=== PATIENT | female | born 1940 | race Caucasian/White ===

== ENCOUNTER 2016-07-17 14:14 | Emergency (ER) | payer MEDICARE, OTHER ==
[2016-07-17 14:31] VITALS: BP 141/68; PULSE 62; RESP 20; TEMP 98.3
--- NOTE | 2016-07-17 15:18 | ED ---
General Adult HPI - General Chief complaint: Extremity Problem,Nontraumatic Stated complaint: Right Arm Pain Time Seen by Provider: 07/17/16 14:45 Source: patient, RN notes reviewed Mode of arrival: ambulatory Limitations: no limitations - History of Present Illness Initial comments: This is a 76-year-old female presents with right elbow pain 3 months. Patient states that the pain has been getting worse as of late. Patient denies any repetitive motion with the right arm but states she uses this arm to read. Patient denies any numbness/tingling or weakness to the right upper extremity. Patient states there is some mild swelling to the right elbow. Patient states the pain is worse with making a fist. Patient denies any recent fever, chills, shortness breath, chest pain, abdominal pain, nausea/vomiting/diarrhea, back pain, hematuria, headache, or visual changes, or any other complaints. - Related Data Allergies Allergy/AdvReac Type Severity Reaction Status Date / Time Penicillins Allergy Unknown Verified 07/17/16 14:31 Review of Systems ROS Statement: Those systems with pertinent positive or pertinent negative responses have been documented in the HPI. ROS Other: All systems not noted in ROS Statement are negative. Past Medical History Past Medical History: Coronary Artery Disease (CAD), Chest Pain / Angina, Diabetes Mellitus, Myocardial Infarction ([place]), Osteoarthritis (OA) History of Any Multi-Drug Resistant Organisms: None Reported Past Surgical History: Cholecystectomy, Heart Catheterization With Stent, Hysterectomy Additional Past Surgical History / Comment(s): carpal tunnel Past Psychological History: No Psychological Hx Reported Smoking Status: Never smoker Past Alcohol Use History: None Reported Past Drug Use History: None Reported General Exam - General Exam Comments Initial Comments: General: The patient is awake and alert, in no distress, and does not appear acutely ill. Neck: The neck is supple, there is no tenderness or JVD. Cardiovascular: There is a regular rate and rhythm. No murmur, rub or gallop is appreciated. Respiratory: Lungs are clear to auscultation, respirations are non-labored, breath sounds are equal. No wheezes, stridor, rales, or rhonchi. Musculoskeletal: There is tenderness to palpation over the lateral aspect of the right elbow and tenderness is exacerbated with resisted flexion of the right wrist and with resisted pronation. There is some mild swelling over the lateral aspect of the right elbow. No tenderness to palpation over the medial aspect of the right elbow, the right forearm, the right shoulder or the right wrist/hand. Full range of motion, strength 5/5 and Sensation intact. Radial pulses bilaterally. Capillary refill is normal at less than 2 seconds. Neurological: A&O x 3. CN II-XII intact, There are no obvious motor or sensory deficits. Coordination appears grossly intact. Speech is normal. Skin: Skin is warm and dry and no rashes or lesions are noted. Psychiatric: Normal mood and affect. Limitations: no limitations Course Vital Signs 07/17/16 14:28 Temperature 98.3 F Pulse Rate 62 Respiratory 20 Rate Blood Pressure 141/68 O2 Sat by Pulse 97 Oximetry Medical Decision Making - Medical Decision Making This is a 76-year-old female presents with right elbow pain 3 months. On physical exam There is tenderness to palpation over the lateral aspect of the right elbow and tenderness is exacerbated with resisted flexion of the right wrist and with resisted pronation. There is some mild swelling over the lateral aspect of the right elbow. No tenderness to palpation over the medial aspect of the right elbow, the right forearm, the right shoulder or the right wrist/hand. Full range of motion, strength 5/5 and Sensation intact. Radial pulses bilaterally. Capillary refill is normal at less than 2 seconds. An x-ray of the right elbow was done and reviewed showing:Negative right elbow exam. There is calcification lateral to the lateral humeral condyle consistent with old injury. Reported by Dr. Park. Aldo denies any recent or old injury to the elbow that she can recall. I discussed with patient that she most likely has lateral epicondylitis. I discussed tennis elbow braces. I discussed rest, ice, elevate and use of Trace wrap for compression. I discussed [id number] Tylenol and or Motrin as needed for any pain. I discussed return parameters. Discussed that patient should follow up with PCP in one to 2 days or return to the [facility] for any worsening symptoms or for any further concerns. Patient was receptive to this plan and patient will be discharged home. Disposition Clinical Impression: Lateral epicondylitis of right elbow Disposition: HOME SELF-CARE Condition: Good Instructions: Tennis Elbow (ED) Additional Instructions: Please rest, ice, elevate and use a tennis elbow brace for support. Please use [id number] Tylenol or Motrin as a for any pain. Please follow-up with family doctor in the next 2 days of symptoms have not improved. Please return to emergency room if the symptoms increase or worsen or for any other concerns. Referrals: Kasia Law MD [Primary Care Provider] - 1-2 days Time of Disposition: 15:45
--- NOTE | 2016-07-17 15:28 | XR ---
EXAMINATION TYPE: XR elbow complete RT DATE OF EXAM: 07/17/2016 3:22 PM COMPARISON: NONE HISTORY: Elbow pain TECHNIQUE: 3 views FINDINGS: I see no fracture nor dislocation. Joint spaces are normal. There is no sign of elbow joint effusion. IMPRESSION: Negative right elbow exam. There is calcification lateral to the lateral humeral condyle consistent with old injury.
== END 2016-07-17 16:08 | disposition home or self-care (01) ==
LOC: EC 14:14
DX: M77.11 Lateral epicondylitis, right elbow (principal); Z88.0 Allergy status to penicillin; Z95.5 Presence of coronary angioplasty implant and graft
CPT/HCPCS: 99283

== ENCOUNTER → 2017-08-02 | Outpatient (CLI) | payer MEDICARE, OTHER ==
--- NOTE | 2017-08-03 07:35 | BD ---
EXAMINATION TYPE: MG DEXA axial skeleton. DATE OF EXAM: 08/02/2017 COMPARISON: 10/25/2013 CLINICAL HISTORY: Postmenopausal female. Osteoporosis screening. Height: 57.5 IN Weight: 195 LBS FRAX RISK QUESTIONS: Alcohol (3 or more units per day): NO Family History (Parent hip fracture): NO Glucocorticoids (More than 3mos): NO (Ex: prednisone, prednisolone, methylprednisolone, dexamethasone, and hydrocortisone). History of Fracture in Adulthood: NO Secondary Osteoporosis: 1. Type 1 Diabetes: NO 2. Hyperthyroidism: NO 3. Menopause before 45: YES AGE 45 4. Malnutrition: NO 5. Chronic liver disease: NO Rheumatoid Arthritis: NO Current Tobacco Use: NO RISK FACTORS HISTORY OF: Active: MODERATE Diet low in dairy products/other sources of calcium: YES Postmenopausal woman: AGE 45 Take estrogen and/or progesterone medications: NOT NOW How long: TOOK HORMONES AGE 44-65 MEDICATIONS: Additional Medications: VIT D, CRESTOR, VESICARE, GLIPIZIDE, PEPCID TENORMIN,ZYRTEC EXAM MEASUREMENTS: Bone mineral densitometry was performed using the [employer] System. Bone mineral density as measured about the Lumbar spine is: ----- L1-L4(G/cm2): 1.421 T Score Values are as follows: ----- L2: 2.3 ----- L3: 2.9 ----- L4: 1.7 ----- L1-L4: 2.0 Bone mineral density has: Decreased -3.7% since study of: 10/25/2013 Bone mineral density about the R hip (g/cm2): 0.982 Bone mineral density about the L hip (g/cm2): 0.995 T Score values are as follows: -----R Neck: -0.4 -----L Neck: -0.3 -----R Total: 0.8 -----L Total: 1.0 Bone mineral density has: Decreased -2.2% since study of: 10/25/2013 IMPRESSION: Normal (Values between +1 and -1 indicate normal bone mass). Consider repeating this study in 5 year s or sooner if there is some new clinical indication. NOTE: T-SCORE=SD OF THE YOUNG ADULT MEAN.
--- NOTE | 2017-08-03 11:50 | MM ---
Reason for exam: screening (asymptomatic). Last mammogram was performed 3 years and 9 months ago. History: Patient is postmenopausal. Benign left mammotome panel of the left breast, September 12, 2007. Took estrogen for 22 years beginning at age 45. Physical Findings: A clinical breast exam by your physician is recommended on an annual basis and results should be correlated with mammographic findings. MG 3D Screening Mammo W/Cad Bilateral CC and MLO view(s) were taken. Prior study comparison: October 25, 2013, bilateral MG screening mammo w CAD. July 07, 2012, bilateral digital screening mammo w/CAD. The breast tissue is heterogeneously dense. This may lower the sensitivity of mammography. Focal asymmetry outer left CC view 3.5cm from nipple. This finding is changed when compared with previous exams. ASSESSMENT: Incomplete: need additional imaging evaluation, BI-RAD 0 RECOMMENDATION: Special view mammogram of the left breast. If lesion persists on supplemental views, image directed ultrasound is recommended. [facility] will attempt to contact patient to return for supplemental views and ultrasound if indicated.
== END | disposition home or self-care (01) ==
LOC: RADMAMWWP 13:52
PROVIDERS: ATTEND Family Medicine
DX: Z12.31 Encounter for screening mammogram for malignant neoplasm of breast (principal); N95.9 Unspecified menopausal and perimenopausal disorder
CPT/HCPCS: 77063; 77067; 77080

== ENCOUNTER 2018-01-16 07:57 | Emergency (ER) | payer MEDICARE, OTHER ==
--- NOTE | 2018-01-16 08:48 | ED ---
General Adult HPI - General Chief complaint: Eye Problems Stated complaint: RT EYE PROBLEM Time Seen by Provider: 01/16/18 08:09 Source: patient, family, RN notes reviewed Mode of arrival: ambulatory Limitations: no limitations - History of Present Illness Initial comments: Patient's a 77-year-old female with significant past medical history for macular pucker, presenting to the emergency room today with a chief complaint of decreased visual acuity out of the right eye. Patient does admit that last approximately 9:00 she noticed that centrally seemed that her vision was a little different. She states it felt like something was in her eye. She states she would then woke up around 4 AM. She states at that time she's noticed that her vision was much different. She states the entire visual field was like a piece of "wax paper" was over it. Vision does admit that there is some discomfort to the eye. She denies any other complaints or symptoms. - Related Data Allergies Allergy/AdvReac Type Severity Reaction Status Date / Time Penicillins Allergy Unknown Verified 01/16/18 08:35 Review of Systems ROS Statement: Those systems with pertinent positive or pertinent negative responses have been documented in the HPI. ROS Other: All systems not noted in ROS Statement are negative. Past Medical History Past Medical History: Coronary Artery Disease (CAD), Chest Pain / Angina, Diabetes Mellitus, Myocardial Infarction ([place]), Osteoarthritis ([place]) History of Any Multi-Drug Resistant Organisms: None Reported Past Surgical History: Cholecystectomy, Heart Catheterization With Stent, Hysterectomy, Orthopedic Surgery Additional Past Surgical History / Comment(s): carpal tunnel shoulder surg Past Psychological History: No Psychological Hx Reported Smoking Status: Never smoker Past Alcohol Use History: None Reported Past Drug Use History: None Reported General Exam - General Exam Comments Initial Comments: General: The patient is awake and alert, in no distress, and does not appear acutely ill. Eye: Extraocular eye movements are intact. No nystagmus. Patient's left pupil is larger than her right. (States this is been that way since after cataract surgery on the left) patient's visual acuity on the right is dramatically effective as she is unable to distinguish fingers less than an inch from her eye. Entire visual field. Pressure 14 on the right. Ears, nose, mouth and throat: There are moist mucous membranes and no oral lesions. Neck: The neck is supple Musculoskeletal: Normal ROM, no tenderness. Strength 5/5. Sensation intact. Pulses equal bilaterally 2+. Neurological: A&O x 3. CN II-XII intact, There are no obvious motor or sensory deficits. Coordination appears grossly intact. Speech is normal. Skin: Skin is warm and dry and no rashes or lesions are noted. Psychiatric: Cooperative, appropriate mood & affect, normal judgment. Limitations: no limitations Course Vital Signs 01/16/18 08:03 Temperature 97.8 F Pulse Rate 56 L Respiratory 16 Rate Blood Pressure 166/72 O2 Sat by Pulse 98 Oximetry Medical Decision Making - Medical Decision Making Case was discussed with attending physician Dr. Padgett who did discuss the case with patient's cover stitch machine operator Dr. Michaels who recommends that the patient come directly to his office at this time. Patient does have somebody that will will drive her there. She will be discharged advised to proceed directly to his office. Disposition Clinical Impression: Vision loss of right eye Disposition: HOME SELF-CARE Condition: Stable Additional Instructions: Please proceed directly to Dr. Michaels's office for further evaluation. Is patient prescribed a controlled substance at d/c from ED?: No Referrals: Kasia Law MD [Primary Care Provider] - 1-2 days Time of Disposition: 08:48
[2018-01-16 09:06] VITALS: BP 163/75; PULSE 59; RESP 18; TEMP 97.6
== END 2018-01-16 08:45 | disposition home or self-care (01) ==
LOC: EC 07:57
DX: H54.61 Unqualified visual loss, right eye, normal vision left eye (principal); Z88.0 Allergy status to penicillin; Z98.42 Cataract extraction status, left eye
CPT/HCPCS: 99283

== ENCOUNTER → 2019-03-13 | Outpatient (CLI) | payer MEDICARE, OTHER ==
--- NOTE | 2019-03-15 14:58 | MM ---
Reason for exam: screening (asymptomatic). Last mammogram was performed 1 year and 7 months ago. History: Patient is postmenopausal. Benign left mammotome panel of the left breast, September 12, 2007. Took estrogen for 22 years beginning at age 45. Physical Findings: A clinical breast exam by your physician is recommended on an annual basis and results should be correlated with mammographic findings. MG 3D Screening Mammo W/Cad Bilateral CC and MLO view(s) were taken. Prior study comparison: August 02, 2017, bilateral MG 3d screening mammo w/cad. October 25, 2013, bilateral MG screening mammo w CAD. The breast tissue is heterogeneously dense. This may lower the sensitivity of mammography. Benign appearing bilateral calcifications. There is no discrete abnormality. No significant changes when compared with prior studies. ASSESSMENT: Benign, BI-RAD 2 RECOMMENDATION: Routine screening mammogram of both breasts in 1 year.
== END | disposition home or self-care (01) ==
LOC: RADMAMWWP 09:57
PROVIDERS: ATTEND Family Medicine
DX: Z12.31 Encounter for screening mammogram for malignant neoplasm of breast (principal)
CPT/HCPCS: 77063; 77067

== ENCOUNTER 2019-05-04 20:48 | Inpatient (IN) | payer MEDICARE, OTHER ==
[2019-05-04] MEDS ORDERED: ACETAMINOPHEN TAB 325 MG TAB PO STA (21:23)
[2019-05-04 21:43] LABS: Basophils % (A) 0 %; Eosinophils # (A) 0.1 k/uL (0-0.7); Eosinophils % (A) 1 %; HCT 41.1 % (34.0-46.0); Lymphocytes # (A) 0.3 k/uL (1.0-4.8); Lymphocytes % (A) 4 %; MCH 27.9 pg (25.0-35.0); Mean Platelet Volume 7.5; Monocytes # (A) 0.3 k/uL (0-1.0); Monocytes % (A) 3 %; Neutrophils # (A) 7.2 k/uL (1.3-7.7); Neutrophils % (A) 91 %; Platelet Count 161 k/uL (150-450); RBC 5.02 m/uL (3.80-5.40); RDW 14.9 % (11.5-15.5); WBC 7.9 k/uL (3.8-10.6)
--- NOTE | 2019-05-04 21:51 | ED ---
Fever HPI - General Chief Complaint: Fever Stated Complaint: Fever, Weakness Time Seen by Provider: 05/04/19 20:54 Source: patient Mode of arrival: ambulatory Limitations: no limitations - History of Present Illness Initial Comments: This patient is 79-year-old woman who presents to be evaluated for chills. The patient that she was in her usual state of health until about 3 PM today when she noted that she was developing chills. She states that she spent the afternoon every herself with blankets and then as the symptoms did not seem to getting better, she was persuaded by her daughters to be checked here. The patient denies symptoms of infection. She did not note fever at home. She is not having sore throat, congestion, sinus pain. No cough, dyspnea or chest pain. She has not noted palpitations. No abdominal pain, vomiting or diarrhea. She has not noted any frequency or dysuria. No rash. MD Complaint: other (Chills) -: hour(s) (6) Temperature Source: subjective Context: recent antibiotic use Associated Symptoms: chills Treatments Prior to Arrival: none - Related Data Home Medications Medication Instructions Recorded Confirmed Amlodipine/Valsartan/Hcthiazid 1 tab PO DAILY 01/16/18 05/04/19 [[id number]-[id number]-Tcfl 10-160-25 mg] Atenolol [Tenormin] 50 mg PO DAILY 01/16/18 05/04/19 Cetirizine HCl [Zyrtec] 10 mg PO DAILY 01/16/18 05/04/19 Cholecalciferol [Vitamin D3] 5,000 unit PO DAILY 01/16/18 05/04/19 Famotidine [Pepcid] 20 mg PO DAILY 01/16/18 05/04/19 glipiZIDE XL [Glucotrol Xl] 5 mg PO DAILY 01/16/18 05/04/19 Aspirin [Adult Low Dose Aspirin [facility]] 81 mg PO HS 05/04/19 05/04/19 Toviaz (Unknown Dose) 1 tab PO DAILY 05/04/19 05/04/19 Allergies Allergy/AdvReac Type Severity Reaction Status Date / Time Penicillins Allergy Unknown Verified 05/04/19 23:02 Review of Systems ROS Statement: Those systems with pertinent positive or pertinent negative responses have been documented in the HPI. ROS Other: All systems not noted in ROS Statement are negative. Constitutional: Reports: chills. Denies: fever Respiratory: Denies: cough, dyspnea Cardiovascular: Denies: chest pain, palpitations, edema, syncope Gastrointestinal: Denies: abdominal pain, vomiting, diarrhea Genitourinary: Denies: dysuria, frequency, hematuria Musculoskeletal: Denies: back pain Skin: Denies: rash Neurological: Denies: headache, weakness Past Medical History Past Medical History: Coronary Artery Disease (CAD), Chest Pain / Angina, Diabetes Mellitus, Myocardial Infarction ([place]), Osteoarthritis (OA) History of Any Multi-Drug Resistant Organisms: None Reported Past Surgical History: Cholecystectomy, Heart Catheterization With Stent, Hysterectomy, Orthopedic Surgery Additional Past Surgical History / Comment(s): carpal tunnel shoulder surg Past Psychological History: No Psychological Hx Reported Smoking Status: Never smoker Past Alcohol Use History: None Reported Past Drug Use History: None Reported - Past Family History Father Additional Family Medical History / Comment(s): of cancer of lungs from smoking Mother Family Medical History: Diabetes Mellitus Additional Family Medical History / Comment(s): of complications of diabetes General Exam Limitations: no limitations General appearance: alert, in no apparent distress Head exam: Present: atraumatic, normocephalic Eye exam: Present: normal appearance. Absent: scleral icterus, conjunctival injection ENT exam: Present: normal oropharynx, mucous membranes moist Neck exam: Present: normal inspection, full ROM. Absent: meningismus Respiratory exam: Present: normal lung sounds bilaterally. Absent: respiratory distress, wheezes, rales, rhonchi, stridor Cardiovascular Exam: Present: regular rate, normal rhythm, normal heart sounds. Absent: systolic murmur, diastolic murmur, rubs, gallop GI/Abdominal exam: Present: soft, hernia. Absent: distended, tenderness, guarding, rebound, rigid Extremities exam: Present: normal inspection, normal capillary refill. Absent: pedal edema, calf tenderness Back exam: Present: normal inspection. Absent: CVA tenderness (R), CVA tenderness (L) Neurological exam: Present: alert Skin exam: Present: warm, dry, intact, normal color. Absent: rash Course Vital Signs 05/04/19 05/04/19 05/04/19 21:04 21:07 21:30 Temperature 100.9 F H Pulse Rate 87 86 Respiratory 20 19 Rate Blood Pressure 120/51 120/51 O2 Sat by Pulse 97 96 95 Oximetry 05/04/19 05/04/19 05/04/19 22:00 22:30 23:47 Temperature 99.2 F Pulse Rate 84 85 78 Respiratory 23 22 20 Rate Blood Pressure 113/51 111/52 100/78 O2 Sat by Pulse 99 94 L 95 Oximetry Medical Decision Making - Lab Data Result diagrams: 05/05/19 02:34 05/05/19 02:34 Lab Results 05/04/19 05/04/19 05/04/19 Range/Units 21:03 21:03 21:03 WBC 7.9 (3.8-10.6) k/uL RBC 5.02 (3.80-5.40) m/uL Hgb 14.0 (11.4-16.0) gm/dL Hct 41.1 (34.0-46.0) % MCV 82.0 (80.0-100.0) fL MCH 27.9 (25.0-35.0) pg MCHC 34.0 (31.0-37.0) g/dL RDW 14.9 (11.5-15.5) % Plt Count 161 (150-450) k/uL Neutrophils % 91 % Lymphocytes % 4 % Monocytes % 3 % Eosinophils % 1 % Basophils % 0 % Neutrophils # 7.2 (1.3-7.7) k/uL Lymphocytes # 0.3 L (1.0-4.8) k/uL Monocytes # 0.3 (0-1.0) k/uL Eosinophils # 0.1 (0-0.7) k/uL Basophils # 0.0 (0-0.2) k/uL Sodium 140 (137-145) mmol/L Potassium 4.2 (3.5-5.1) mmol/L Chloride 106 (98-107) mmol/L Carbon Dioxide 21 L (22-30) mmol/L Anion Gap 13 mmol/L BUN 47 H (7-17) mg/dL Creatinine 2.11 H (0.52-1.04) mg/dL Est GFR (CKD-EPI)AfAm 25 (>60 ml/min/1.73 sqM) Est GFR (CKD-EPI)NonAf 22 (>60 ml/min/1.73 sqM) Glucose 98 (74-99) mg/dL Plasma Lactic Acid Ravi 2.6 H* (0.7-2.0) mmol/L Calcium 9.8 (8.4-10.2) mg/dL Total Bilirubin 0.7 (0.2-1.3) mg/dL AST 93 H (14-36) U/L ALT 82 H (9-52) U/L Alkaline Phosphatase 98 (38-126) U/L Total Protein 7.6 (6.3-8.2) g/dL Albumin 4.2 (3.5-5.0) g/dL Urine Color Urine Appearance (Clear) Urine pH (5.0-8.0) Ur Specific [place] (1.001-1.035) Urine Protein (Negative) Urine Glucose (UA) (Negative) Urine Ketones (Negative) Urine Blood (Negative) Urine Nitrite (Negative) Urine Bilirubin (Negative) Urine Urobilinogen (<2.0) mg/dL Ur Leukocyte Esterase (Negative) Urine RBC (0-5) /hpf Urine WBC (0-5) /hpf Ur Squamous Epith Cells (0-4) /hpf Urine Bacteria (None) /hpf 05/04/19 Range/Units 21:03 WBC (3.8-10.6) k/uL RBC (3.80-5.40) m/uL Hgb (11.4-16.0) gm/dL Hct (34.0-46.0) % MCV (80.0-100.0) fL MCH (25.0-35.0) pg MCHC (31.0-37.0) g/dL RDW (11.5-15.5) % Plt Count (150-450) k/uL Neutrophils % % Lymphocytes % % Monocytes % % Eosinophils % % Basophils % % Neutrophils # (1.3-7.7) k/uL Lymphocytes # (1.0-4.8) k/uL Monocytes # (0-1.0) k/uL Eosinophils # (0-0.7) k/uL Basophils # (0-0.2) k/uL Sodium (137-145) mmol/L Potassium (3.5-5.1) mmol/L Chloride (98-107) mmol/L Carbon Dioxide (22-30) mmol/L Anion Gap mmol/L BUN (7-17) mg/dL Creatinine (0.52-1.04) mg/dL Est GFR (CKD-EPI)AfAm (>60 ml/min/1.73 sqM) Est GFR (CKD-EPI)NonAf (>60 ml/min/1.73 sqM) Glucose (74-99) mg/dL Plasma Lactic Acid Ravi (0.7-2.0) mmol/L Calcium (8.4-10.2) mg/dL Total Bilirubin (0.2-1.3) mg/dL AST (14-36) U/L ALT (9-52) U/L Alkaline Phosphatase (38-126) U/L Total Protein (6.3-8.2) g/dL Albumin (3.5-5.0) g/dL Urine Color Yellow Urine Appearance Cloudy H (Clear) Urine pH 5.5 (5.0-8.0) Ur Specific [place] 1.012 (1.001-1.035) Urine Protein Negative (Negative) Urine Glucose (UA) Negative (Negative) Urine Ketones Negative (Negative) Urine Blood Negative (Negative) Urine Nitrite Negative (Negative) Urine Bilirubin Negative (Negative) Urine Urobilinogen <2.0 (<2.0) mg/dL Ur Leukocyte Esterase Large H (Negative) Urine RBC 2 (0-5) /hpf Urine WBC 72 H (0-5) /hpf Ur Squamous Epith Cells 1 (0-4) /hpf Urine Bacteria Rare H (None) /hpf Disposition Clinical Impression: Urinary tract infection, Acute kidney injury Disposition: ADMITTED IP TO THIS HOSP Condition: Fair Is patient prescribed a controlled substance at d/c from ED?: No
[2019-05-04 21:53] LABS: Appearance,Urine Cloudy (Clear); Bacteria,Urine Rare /hpf; Bilirubin,Urine Negative (Negative); Blood,Urine Negative (Negative); Color,Urine Yellow; Glucose,Urine (UA) Negative (Negative); Ketones,Urine Negative (Negative); Leukocyte Esterase,Urine Large (Negative); Nitrite,Urine Negative (Negative); PH, Urine 5.5 (5.0-8.0); Protein,Urine Negative (Negative); RBC,Urine 2 /hpf (0-5); Specific Gravity,Urine 1.012 (1.001-1.035); Squamous Epithelial Cell,Urine 1 /hpf (0-4); Urobilinogen,Urine <2.0 mg/dL (<2.0)
[2019-05-04 21:59] LABS: Albumin 4.2 g/dL (3.5-5.0); Calcium 9.8 mg/dL (8.4-10.2); Potassium 4.2 mmol/L (3.5-5.1); Total Bilirubin 0.7 mg/dL (0.2-1.3); Total Protein 7.6 g/dL (6.3-8.2)
--- NOTE | 2019-05-04 22:07 | XR ---
EXAMINATION TYPE: XR chest 2V DATE OF EXAM: 05/04/2019 COMPARISON: NONE HISTORY: Fever and weakness TECHNIQUE: Frontal and lateral views of the chest are obtained. FINDINGS: Heart and mediastinum are normal. Lungs are clear. Diaphragm is normal. Bony thorax is int act. There is spurring in the thoracic spine. IMPRESSION: No active cardiopulmonary disease. Normal heart.
[2019-05-04] MEDS ORDERED: SODIUM CHLORIDE 0.9% 500 ML 500 ML IV STA (22:29)
[2019-05-04] MEDS ORDERED: SULFAMETHOX-TMP 800-160MG 1 EACH TAB PO STA (22:29)
[2019-05-04] MEDS ORDERED: ONDANSETRON 4 MG/2 ML VIAL IVP PRN (22:41)
[2019-05-04] MEDS ORDERED: ACETAMINOPHEN TAB 325 MG TAB PO PRN (22:41)
[2019-05-04] MEDS ORDERED: NALOXONE 0.4 MG/ML 1 ML VIAL IV PRN (22:41)
[2019-05-04] MEDS ORDERED: NITROGLYCERIN SL TABS 0.4 MG TAB SUBLINGUAL PRN (22:44)
[2019-05-04] MEDS ORDERED: SODIUM CHLORIDE 0.9% 1,000 ML IV ONE (22:51)
[2019-05-04] MEDS: SODIUM CHLORIDE 0.9% 1,000 ML IV SCH (22:51)
[2019-05-05] MEDS ORDERED: IBUPROFEN 200 MG TAB PO PRN
[2019-05-05 02:56] LABS: Basophils % (A) 0 %; Eosinophils # (A) 0.1 k/uL (0-0.7); Eosinophils % (A) 1 %; HCT 36.5 % (34.0-46.0); HGB 11.8 gm/dL (11.4-16.0); Lymphocytes # (A) 0.4 k/uL (1.0-4.8); Lymphocytes % (A) 6 %; MCH 26.9 pg (25.0-35.0); MCHC 32.3 g/dL (31.0-37.0); MCV 83.1 fL (80.0-100.0); Mean Platelet Volume 7.9; Monocytes # (A) 0.3 k/uL (0-1.0); Monocytes % (A) 5 %; Neutrophils # (A) 5.8 k/uL (1.3-7.7); Neutrophils % (A) 87 %; Platelet Count 142 k/uL (150-450); RBC 4.39 m/uL (3.80-5.40); RDW 15.3 % (11.5-15.5); WBC 6.7 k/uL (3.8-10.6)
[2019-05-05 03:12] LABS: Albumin 3.1 g/dL (3.5-5.0); Calcium 8.6 mg/dL (8.4-10.2); Total Bilirubin 0.8 mg/dL (0.2-1.3); Total Protein 5.8 g/dL (6.3-8.2)
[2019-05-05 04:15] LABS: Potassium 4.4 mmol/L (3.5-5.1)
[2019-05-05 07:11] LABS: Glucose,Whole Blood 104 mg/dL (75-99)
[2019-05-05] MEDS: AMLODIPINE PO SCH (07:21)
[2019-05-05] MEDS: [UNRECOGNIZED DRUG - OTHER] PO SCH (07:21)
[2019-05-05] MEDS: VALSARTAN PO SCH (07:21)
[2019-05-05] MEDS: HCTHIAZID PO SCH (07:21)
[2019-05-05] MEDS: TROSPIUM CHLORIDE 20 MG TABLET PO SCH (07:24)
[2019-05-05] MEDS: ASPIRIN 325 MG TAB PO SCH (07:24)
[2019-05-05] MEDS: CHOLECALCIFEROL 1,000 UNIT TAB PO SCH (07:24)
[2019-05-05] MEDS: ATORVASTATIN 20 MG TAB PO SCH (07:25)
[2019-05-05] MEDS: FAMOTIDINE 20 MG TAB PO SCH ×2 (07:25→20:50)
[2019-05-05] MEDS: LORATADINE 10 MG TAB PO SCH (07:25)
[2019-05-05] MEDS: ATENOLOL 50 MG TAB PO SCH (07:25)
[2019-05-05] MEDS: SODIUM CHLORIDE 0.9% 1,000 ML IV SCH ×3 (08:04→17:37)
[2019-05-05] MEDS ORDERED: DOCUSATE 100 MG CAP PO PRN (09:00)
--- NOTE | 2019-05-05 10:02 | P.HPIM ---
History of Present Illness H&P Date: 05/05/19 Chief Complaint: Confusion/altered mental status started 3 PM This is a 79-year-old woman who presents to be evaluated for chills and confusion started about 3 PM yesterday afternoon. The patient that she was in her usual state of health until about 3 PM yesterday when she noted that she was developing chills and confusion. She states that she spent the afternoon every herself with blankets and then as the symptoms did not seem to getting better, she was persuaded by her daughters to be checked here. The patient denies symptoms of infection. She did not note fever at home. She is not having sore throat, congestion, sinus pain. No cough, dyspnea or chest pain. She has not noted palpitations. No abdominal pain, vomiting or diarrhea. She has not noted any frequency or dysuria. No rash. In the ER she was noted to be in lactic acidosis with elevated liver enzymes, and dehydration urine appears to be cloudy which is sent for culture appears to be infected patient mental status significantly improved this morning Review of Systems All systems: negative Past Medical History Past Medical History: Coronary Artery Disease (CAD), Chest Pain / Angina, Diabetes Mellitus, Myocardial Infarction ([place]), Osteoarthritis (OA) Last Myocardial Infarction Date:: 2006 History of Any Multi-Drug Resistant Organisms: None Reported Past Surgical History: Cholecystectomy, Heart Catheterization With Stent, Hysterectomy, Orthopedic Surgery Additional Past Surgical History / Comment(s): carpal tunnel shoulder surg Past Anesthesia/Blood Transfusion Reactions: No Reported Reaction Date of Last Stent Placement:: 2006 Past Psychological History: No Psychological Hx Reported Smoking Status: Never smoker Past Alcohol Use History: None Reported Past Drug Use History: None Reported - Past Family History Father Additional Family Medical History / Comment(s): of cancer of lungs from smoking Mother Family Medical History: Diabetes Mellitus Additional Family Medical History / Comment(s): of complications of diabetes Medications and Allergies Home Medications Medication Instructions Recorded Confirmed Type Amlodipine/Valsartan/Hcthiazid 1 tab PO DAILY 01/16/18 05/04/19 History [Kmxsf-Coarl-Nutn 10-160-25 mg] Atenolol [Tenormin] 50 mg PO DAILY 01/16/18 05/04/19 History Cetirizine HCl [Zyrtec] 10 mg PO DAILY 01/16/18 05/04/19 History Cholecalciferol [Vitamin D3] 5,000 unit PO DAILY 01/16/18 05/04/19 History Famotidine [Pepcid] 20 mg PO DAILY 01/16/18 05/04/19 History glipiZIDE XL [Glucotrol Xl] 5 mg PO DAILY 01/16/18 05/04/19 History Aspirin [Adult Low Dose Aspirin EC] 81 mg PO HS 05/04/19 05/04/19 History Toviaz (Unknown Dose) 1 tab PO DAILY 05/04/19 05/04/19 History Allergies Allergy/AdvReac Type Severity Reaction Status Date / Time Penicillins Allergy Unknown Verified 05/04/19 23:02 Physical Exam Vitals: Vital Signs Temp Pulse Pulse Resp BP BP Pulse Ox 05/05/19 07:38 17 05/05/19 05:00 99.6 F 81 18 112/54 97 05/05/19 03:50 98.8 F 70 16 91/54 05/05/19 00:15 18 05/05/19 00:00 98.6 F 73 18 98/59 95 05/04/19 23:47 99.2 F 78 20 100/78 95 05/04/19 22:30 85 22 111/52 94 L 05/04/19 22:00 84 23 113/51 99 05/04/19 21:30 86 19 120/51 95 05/04/19 21:07 96 05/04/19 21:04 100.9 F H 87 20 120/51 97 Intake and Output 05/04/19 05/05/19 05/05/19 22:59 06:59 14:59 Intake Total 300 Balance 300 Intake: Oral 300 Other: Voiding Method Toilet Bedside Commode # Voids 1 1 # Bowel Movements 0 0 Weight 79.379 kg 79.379 kg - Constitutional General appearance: average body habitus, cooperative, disheveled - EENT Eyes: anicteric sclerae, EOMI, poor dentition, normal appearance ENT: normal oropharynx Ears: bilateral: normal - Neck Neck: normal ROM Carotids: bilateral: upstroke normal Thyroid: bilateral: normal size - Respiratory Respiratory: bilateral: CTA, negative: diminished, dullness, rales, rhonchi, wheezing, prolonged expiration - Cardiovascular Rhythm: regular Heart sounds: normal: S1, S2 - Gastrointestinal General gastrointestinal: normal bowel sounds - Integumentary Integumentary: decreased turgor - Neurologic Neurologic: CNII-XII intact - Musculoskeletal Musculoskeletal: gait normal, generalized weakness, strength equal bilaterally - Psychiatric Psychiatric: A&O x's 3, appropriate affect, intact judgment & insight Results CBC & Chem 7: 05/05/19 02:34 05/05/19 02:34 Labs: Abnormal Lab Results - Last 24 Hours (Table) 05/04/19 05/04/19 05/04/19 Range/Units 21:03 21:03 21:03 Plt Count (150-450) k/uL Lymphocytes # 0.3 L (1.0-4.8) k/uL Chloride (98-107) mmol/L Carbon Dioxide 21 L (22-30) mmol/L BUN 47 H (7-17) mg/dL Creatinine 2.11 H (0.52-1.04) mg/dL Glucose (74-99) mg/dL POC Glucose (mg/dL) (75-99) mg/dL Plasma Lactic Acid Ravi 2.6 H* (0.7-2.0) mmol/L AST 93 H (14-36) U/L ALT 82 H (9-52) U/L Total Protein (6.3-8.2) g/dL Albumin (3.5-5.0) g/dL Urine Appearance (Clear) Ur Leukocyte Esterase (Negative) Urine WBC (0-5) /hpf Urine Bacteria (None) /hpf 05/04/19 05/05/19 05/05/19 Range/Units 21:03 02:34 02:34 Plt Count 142 L (150-450) k/uL Lymphocytes # 0.4 L (1.0-4.8) k/uL Chloride 109 H (98-107) mmol/L Carbon Dioxide (22-30) mmol/L BUN 45 H (7-17) mg/dL Creatinine 2.01 H (0.52-1.04) mg/dL Glucose 122 H (74-99) mg/dL POC Glucose (mg/dL) (75-99) mg/dL Plasma Lactic Acid Ravi (0.7-2.0) mmol/L AST 155 H (14-36) U/L ALT 103 H (9-52) U/L Total Protein 5.8 L (6.3-8.2) g/dL Albumin 3.1 L (3.5-5.0) g/dL Urine Appearance Cloudy H (Clear) Ur Leukocyte Esterase Large H (Negative) Urine WBC 72 H (0-5) /hpf Urine Bacteria Rare H (None) /hpf 05/05/19 05/05/19 Range/Units 02:34 07:09 Plt Count (150-450) k/uL Lymphocytes # (1.0-4.8) k/uL Chloride (98-107) mmol/L Carbon Dioxide (22-30) mmol/L BUN (7-17) mg/dL Creatinine (0.52-1.04) mg/dL Glucose (74-99) mg/dL POC Glucose (mg/dL) 104 H (75-99) mg/dL Plasma Lactic Acid Ravi 2.9 H* (0.7-2.0) mmol/L AST (14-36) U/L ALT (9-52) U/L Total Protein (6.3-8.2) g/dL Albumin (3.5-5.0) g/dL Urine Appearance (Clear) Ur Leukocyte Esterase (Negative) Urine WBC (0-5) /hpf Urine Bacteria (None) /hpf Microbiology - Last 24 Hours (Table) 05/04/19 21:03 Urine Culture - Preliminary Urine,Voided Thrombosis Risk Factor Assmnt - Choose All That Apply Each Factor Represents 1 point: Obesity (BMI >25) Each Risk Factor Represents 3 Points: Age 75 years or older Thrombosis Risk Factor Assessment Total Risk Factor Score: 4 Thrombosis Risk Factor Assessment Level: Moderate Risk Assessment and Plan Assessment: Severe sepsis Urine tract infection Confusion and altered mental status related to sepsis Elevated liver enzymes Type 2 diabetes mellitus Hypertension hypertensive cardiovascular disease Plan: Resume home medications Gentle rehydration Broad-spectrum antibiotics Increase activity as tolerated Repeat labs tomorrow Further recommendations pending plan of care as per clinical response of the pat ient Follow-up on urine and blood culture Time with Patient: Greater than 30
[2019-05-05 11:41] LABS: Glucose,Whole Blood 138 mg/dL (75-99)
[2019-05-05 17:11] LABS: Glucose,Whole Blood 121 mg/dL (75-99)
[2019-05-05 20:50] LABS: Glucose,Whole Blood 86 mg/dL (75-99)
[2019-05-06] MEDS: SODIUM CHLORIDE 0.9% 1,000 ML IV SCH ×4 (05:05→11:10)
[2019-05-06 07:19] LABS: Glucose,Whole Blood 98 mg/dL (75-99)
[2019-05-06] MEDS: [UNRECOGNIZED DRUG - OTHER] PO SCH (07:29)
[2019-05-06] MEDS: HCTHIAZID PO SCH (07:29)
[2019-05-06] MEDS: AMLODIPINE PO SCH (07:29)
[2019-05-06] MEDS: VALSARTAN PO SCH (07:29)
[2019-05-06] MEDS: CHOLECALCIFEROL 1,000 UNIT TAB PO SCH (07:30)
[2019-05-06] MEDS: FAMOTIDINE 20 MG TAB PO SCH (07:31)
[2019-05-06] MEDS: TROSPIUM CHLORIDE 20 MG TABLET PO SCH (07:31)
[2019-05-06] MEDS: ASPIRIN 325 MG TAB PO SCH (07:31)
[2019-05-06] MEDS: ATENOLOL 50 MG TAB PO SCH (07:31)
[2019-05-06] MEDS: LORATADINE 10 MG TAB PO SCH (07:31)
[2019-05-06] MEDS: ATORVASTATIN 20 MG TAB PO SCH (07:31)
[2019-05-06 07:49] VITALS: RESP 16
[2019-05-06 07:55] LABS: Basophils % (A) 0 %; Eosinophils # (A) 0.3 k/uL (0-0.7); Eosinophils % (A) 6 %; HCT 34.5 % (34.0-46.0); HGB 11.5 gm/dL (11.4-16.0); Lymphocytes # (A) 0.8 k/uL (1.0-4.8); Lymphocytes % (A) 15 %; MCH 27.8 pg (25.0-35.0); MCHC 33.2 g/dL (31.0-37.0); MCV 83.7 fL (80.0-100.0); Monocytes # (A) 0.3 k/uL (0-1.0); Monocytes % (A) 5 %; Neutrophils # (A) 3.9 k/uL (1.3-7.7); Neutrophils % (A) 73 %; Platelet Count 117 k/uL (150-450); RBC 4.13 m/uL (3.80-5.40); RDW 15.4 % (11.5-15.5); WBC 5.4 k/uL (3.8-10.6)
[2019-05-06 08:15] LABS: Albumin 2.8 g/dL (3.5-5.0); Calcium 8.6 mg/dL (8.4-10.2); Potassium 3.9 mmol/L (3.5-5.1); Total Bilirubin 2.3 mg/dL (0.2-1.3); Total Protein 5.6 g/dL (6.3-8.2)
[2019-05-06] MEDS: ACETAMINOPHEN TAB 325 MG TAB PO PRN (08:34)
--- NOTE | 2019-05-06 10:04 | P.PN ---
Subjective Progress Note Date: 05/06/19 Principal diagnosis: Severe sepsis Urine tract infection Gouty arthritis Confusion and altered mental status related to sepsis Elevated liver enzymes Type 2 diabetes mellitus Hypertension hypertensive cardiovascular diseas 05/06/2019, patient seen eval reexamined during the rounds labs reviewed medications reviewed care plan discussed with the patient at length, patient is more awake and alert breathing more comfortably denies any chest pain or shortness of breath denies any bladder irritation or burning micturition, she is however complaining of some discomfort in the toes she has a history of gouty arthritis in the past with a flareup about 2 months ago involving right big toe and left second toe she has been taking colchicine up to a week but due to diarrhea have his stopped taking it now she feels slight discomfort but no swelling or tenderness of pain in the toes though Objective - Vital Signs Vital signs: Vital Signs Temp 98.2 F 05/06/19 05:00 Pulse 76 05/06/19 05:00 Resp 16 05/06/19 07:41 BP 109/63 05/06/19 05:00 Pulse Ox 92 L 05/06/19 05:00 Intake & Output 05/05/19 05/06/19 05/06/19 18:59 06:59 18:59 Intake Total 700 Balance 700 Intake: Oral 700 Other: Voiding Method Toilet Toilet # Voids 1 2 # Bowel Movements 0 0 - Exam - Constitutional General appearance: average body habitus, cooperative, disheveled - EENT Eyes: anicteric sclerae, EOMI, poor dentition, normal appearance ENT: normal oropharynx Ears: bilateral: normal - Neck Neck: normal ROM Carotids: bilateral: upstroke normal Thyroid: bilateral: normal size - Respiratory Respiratory: bilateral: CTA, negative: diminished, dullness, rales, rhonchi, wheezing, prolonged expiration - Cardiovascular Rhythm: regular Heart sounds: normal: S1, S2 - Gastrointestinal General gastrointestinal: normal bowel sounds - Integumentary Integumentary: decreased turgor - Neurologic Neurologic: CNII-XII intact - Musculoskeletal Musculoskeletal: gait normal, generalized weakness, strength equal bilaterally - Psychiatric Psychiatric: A&O x's 3, appropriate affect, intact judgment & insight - Labs CBC & Chem 7: 05/06/19 07:19 05/06/19 07:19 Labs: Abnormal Lab Results - Last 24 Hours (Table) 05/05/19 05/05/19 05/06/19 Range/Units 11:32 17:02 07:19 Plt Count 117 L (150-450) k/uL Lymphocytes # 0.8 L (1.0-4.8) k/uL Chloride (98-107) mmol/L Carbon Dioxide (22-30) mmol/L BUN (7-17) mg/dL Creatinine (0.52-1.04) mg/dL POC Glucose (mg/dL) 138 H 121 H (75-99) mg/dL Total Bilirubin (0.2-1.3) mg/dL AST (14-36) U/L ALT (9-52) U/L Total Protein (6.3-8.2) g/dL Albumin (3.5-5.0) g/dL 05/06/19 Range/Units 07:19 Plt Count (150-450) k/uL Lymphocytes # (1.0-4.8) k/uL Chloride 113 H (98-107) mmol/L Carbon Dioxide 21 L (22-30) mmol/L BUN 24 H (7-17) mg/dL Creatinine 1.76 H (0.52-1.04) mg/dL POC Glucose (mg/dL) (75-99) mg/dL Total Bilirubin 2.3 H (0.2-1.3) mg/dL AST 106 H (14-36) U/L ALT 130 H (9-52) U/L Total Protein 5.6 L (6.3-8.2) g/dL Albumin 2.8 L (3.5-5.0) g/dL Microbiology - Last 24 Hours (Table) 05/04/19 21:03 Blood Culture - Preliminary Blood No Growth after 24 hours 05/04/19 21:03 Urine Culture - Preliminary Urine,Voided Gram Neg Bacilli Assessment and Plan Assessment: Severe sepsis Urine tract infection Flareup of Gouty arthritis with some discomfort in her right big toe and second left toe Confusion and altered mental status related to sepsis Elevated liver enzymes Type 2 diabetes mellitus Hypertension hypertensive cardiovascular disease Plan: Check uric acid level Initiate course of his steroids Patient may need to go back on allopurinol and or colchicine Resume home medications Gentle rehydration Broad-spectrum antibiotics Increase activity as tolerated Repeat labs tomorrow Further recommendations pending plan of care as per clinical response of the pa tient Follow-up on urine and blood culture Time with Patient: Greater than 30
[2019-05-06] MEDS: predniSONE 20 MG TAB PO SCH (10:21)
[2019-05-06 11:47] LABS: Glucose,Whole Blood 110 mg/dL (75-99)
[2019-05-06 17:11] LABS: Glucose,Whole Blood 210 mg/dL (75-99)
[2019-05-06 20:31] LABS: Glucose,Whole Blood 273 mg/dL (75-99)
[2019-05-07] MEDS: ACETAMINOPHEN TAB 325 MG TAB PO PRN (02:04)
[2019-05-07] MEDS: SODIUM CHLORIDE 0.9% 1,000 ML IV SCH ×4 (02:06→13:14)
[2019-05-07 04:57] VITALS: TEMP 97.5
[2019-05-07 07:22] LABS: Glucose,Whole Blood 167 mg/dL (75-99)
[2019-05-07 08:08] LABS: Basophils % (A) 0 %; Eosinophils % (A) 0 %; HCT 41.6 % (34.0-46.0); HGB 13.4 gm/dL (11.4-16.0); Lymphocytes # (A) 1.5 k/uL (1.0-4.8); Lymphocytes % (A) 15 %; MCH 27.5 pg (25.0-35.0); MCHC 32.3 g/dL (31.0-37.0); MCV 85.2 fL (80.0-100.0); Monocytes # (A) 0.3 k/uL (0-1.0); Monocytes % (A) 3 %; Neutrophils # (A) 8.3 k/uL (1.3-7.7); Neutrophils % (A) 80 %; Platelet Count 170 k/uL (150-450); RBC 4.89 m/uL (3.80-5.40); RDW 15.3 % (11.5-15.5); WBC 10.4 k/uL (3.8-10.6)
[2019-05-07 08:27] LABS: Albumin 3.6 g/dL (3.5-5.0); Calcium 9.5 mg/dL (8.4-10.2); Potassium 4.2 mmol/L (3.5-5.1); Total Bilirubin 1.2 mg/dL (0.2-1.3); Total Protein 7.8 g/dL (6.3-8.2)
[2019-05-07] MEDS ORDERED: FAMOTIDINE 20 MG TAB PO SCH (09:00)
[2019-05-07] MEDS: VALSARTAN PO SCH (09:22)
[2019-05-07] MEDS: AMLODIPINE PO SCH (09:22)
[2019-05-07] MEDS: HCTHIAZID PO SCH (09:22)
[2019-05-07] MEDS: [UNRECOGNIZED DRUG - OTHER] PO SCH (09:22)
[2019-05-07] MEDS: ATORVASTATIN 20 MG TAB PO SCH (09:28)
[2019-05-07] MEDS: ATENOLOL 50 MG TAB PO SCH (09:28)
[2019-05-07] MEDS: TROSPIUM CHLORIDE 20 MG TABLET PO SCH (09:28)
[2019-05-07] MEDS: predniSONE 20 MG TAB PO SCH (09:28)
[2019-05-07] MEDS: LORATADINE 10 MG TAB PO SCH (09:28)
[2019-05-07] MEDS: ASPIRIN 325 MG TAB PO SCH (09:28)
[2019-05-07] MEDS: CHOLECALCIFEROL 1,000 UNIT TAB PO SCH (09:29)
[2019-05-07 14:10] VITALS: BP 139/69; PULSE 68
--- NOTE | 2019-05-07 14:17 | CDI ---
Documentation Clarification Form Date: 05/07/2019 1:49:00 PM From: Elsy Lou RN, CCDS Admit Date: 05/06/2019 11:50:00 AM Patient Name: Monica Bah Visit Number: [id number] Discharge Date: ATTENTION: The Clinical Documentation Specialists (CDI) and [facility] Coding Staff appreciate your assistance in clarifying documentation. Please respond to the clarification below the line at the bottom and electronically sign. The CDI & [facility] Coding staff will review the response and follow-up if needed. Please note: Queries are made part of the Legal Health Record. If you have any questions, please contact the author of this message via ITS. Dr. Amrit Flores Confusion with altered Mental Status was documented in your History and Physical and ongoing progress notes and further clarification is needed. History/Risk Factors: Coronary artery disease, Diabetes Mellitus Clinical Indicators: 79-year-old female who was noted that she was developing chills and confusion. In the ER she was noted to be in lactic acidosis with labs of 2.6. Vital signs on presentation: 120/51 87 20 100.9 97% RA Labs: WBC 7.9 BUN 47, CR 2.11, Lactic acid 2.6, 2.9, AST 93, 155, ALT 82, 103, UA: Large Leukocyte Esterase X Ray: No acute cardiopulmonary disease Treatment: Neurological assessment per protocol Rocephin IV Monitor CBC, Lytes IV Fluids In your professional opinion, please clarify the etiology of the Altered Mental Status, if known. Metabolic Encephalopathy Other condition (please specify) Unable to determine (Last Revision: September 2017) MTDD
--- NOTE | 2019-05-07 15:15 | P.DS ---
Providers Date of admission: 05/06/19 11:50 Expected date of discharge: 05/07/19 Attending physician: Lupe Jackson Primary care physician: Kasia Law Hospital Course: Discharge diagnosis Dr. Flores covering for Dr. Jackson on 05/05 and 05/06 1. Urine tract infection with Severe sepsis present on admission with altered mental status secondary to metallic encephalopathy. Initial lactic 2.6 improved to 1.7. Urine culture currently growing E. coli. Patient will be DC'd on Ceftin for 1 week has been tolerating Rocephin. Confusion has resolved 2. Flareup of Gouty arthritis with some discomfort in her right big toe and second left toe. Uric acid 8.2. Patient will be DC'd on allopurinol and prednisone taper 3. Acute kidney injury secondary to dehydration from urinary tract infection. Initial creatinine 2.11. Creatinine improving to 1.41 and bun 20 4 repeat CMP ordered for 2 days 4. Elevated liver enzymes. These numbers are trending down. AST 87 ALT 124 5. Type 2 diabetes mellitus. Patient maintained on glipizide 6. hypertensive cardiovascular disease Hospital course This is a 79-year-old woman who presents to be evaluated for chills and confusion started about 3 PM yesterday afternoon. The patient that she was in her usual state of health until about 3 PM yesterday when she noted that she was developing chills and confusion. She states that she spent the afternoon every herself with blankets and then as the symptoms did not seem to getting better, she was persuaded by her daughters to be checked here. The patient denies symptoms of infection. She did not note fever at home. She is not having sore throat, congestion, sinus pain. No cough, dyspnea or chest pain. She has not noted palpitations. No abdominal pain, vomiting or diarrhea. She has not noted any frequency or dysuria. No rash. In the ER she was noted to be in lactic acidosis with elevated liver enzymes, and dehydration urine appears to be cloudy which is sent for culture appears to be infected patient mental status significantly improved this morning 05/06/2019, patient seen eval reexamined during the rounds labs reviewed medications reviewed care plan discussed with the patient at length, patient is more awake and alert breathing more comfortably denies any chest pain or shortness of breath denies any bladder irritation or burning micturition, she is however complaining of some discomfort in the toes she has a history of gouty arthritis in the past with a flareup about 2 months ago involving right big toe and left second toe she has been taking colchicine up to a week but due to di arrhea have his stopped taking it now she feels slight discomfort but no swelling or tenderness of pain in the toes though on 05/07/2019 patient's alert and oriented 3. Patient is eager to go home. Urine culture currently growing E. coli. Patient will be DC'd on Ceftin for 5 more days. Patient has been tolerating Rocephin without issues. Patient also be started on all appear normal for gout uric acid 8.2. Patient will also complete prednisone taper for gout flareup. Does tend patient denies chest pain or shortness of breath. Patient denies vomiting or diarrhea. Patient denies any urinary burning or frequency. Creatinine improving to 1.41 and bun 24. Repeat CMP ordered for 2 days I performed an examination of the patient and discussed their management with the Nurse Practitioner. I have reviewed the Nurse Practitioner's notes and agree with the documented findings and plan of care Patient Condition at Discharge: Stable Plan - Discharge Summary New Discharge Prescriptions: New Cefuroxime Axetil [Ceftin] 500 mg PO BID 5 Days #10 tab predniSONE 10 mg PO DIRECTED 6 Days #7 tab Allopurinol [Zyloprim] 100 mg PO DAILY 30 Days #30 tab Continue glipiZIDE XL [Glucotrol XL] 5 mg PO DAILY Famotidine [Pepcid] 20 mg PO DAILY Cholecalciferol [Vitamin D3 (25 Mcg = 1000 Iu)] 5,000 unit PO DAILY Cetirizine HCl [Zyrtec] 10 mg PO DAILY Atenolol [Tenormin] 50 mg PO DAILY Amlodipine/Valsartan/Hcthiazid [Ynddj-Upmjq-Tgys 10-160-25 MG] 1 tab PO DAILY Aspirin [Adult Low Dose Aspirin EC] 81 mg PO HS Furosemide [Lasix] 20 mg PO DAILY PRN PRN Reason: SWELLING Oxybutynin Chloride [Ditropan] 5 mg PO TID Discharge Medication List Amlodipine/Valsartan/Hcthiazid [Jbziz-Rltyz-Xdsv 10-160-25 MG] 1 tab PO DAILY 01/16/18 [History] Atenolol [Tenormin] 50 mg PO DAILY 01/16/18 [History] Cetirizine HCl [Zyrtec] 10 mg PO DAILY 01/16/18 [History] Cholecalciferol [Vitamin D3 (25 Mcg = 1000 Iu)] 5,000 unit PO DAILY 01/16/18 [History] Famotidine [Pepcid] 20 mg PO DAILY 01/16/18 [History] glipiZIDE XL [Glucotrol XL] 5 mg PO DAILY 01/16/18 [History] Aspirin [Adult Low Dose Aspirin EC] 81 mg PO HS 05/04/19 [History] Furosemide [Lasix] 20 mg PO DAILY PRN 05/05/19 [History] Allopurinol [Zyloprim] 100 mg PO DAILY 30 Days #30 tab 05/07/19 [Rx] Cefuroxime Axetil [Ceftin] 500 mg PO BID 5 Days #10 tab 05/07/19 [Rx] Oxybutynin Chloride [Ditropan] 5 mg PO TID 05/07/19 [History] predniSONE 10 mg PO DIRECTED 6 Days #7 tab 05/07/19 [Rx] Follow up Appointment(s)/Referral(s): Kasia Law MD [Primary Care Provider] - 1-2 days Activity/Diet/Wound Care/Special Instructions: Activity as tolerated Diet heart healthy Discharge Disposition: HOME SELF-CARE
[2019-05-08] MEDS ORDERED: ALLOPURINOL 100 MG TAB PO SCH (09:00)
== END 2019-05-07 16:29 | disposition home or self-care (01) | DRG 871 ==
LOC: EC 20:48 → 4MS4W 22:41 → OBSVTOIN 05-06 11:50
PROVIDERS: ADMIT Internal Medicine; ATTEND Internal Medicine
DX: A41.51 Sepsis due to Escherichia coli [E. coli] (principal); G93.41 Metabolic encephalopathy; N39.0 Urinary tract infection, site not specified; N17.9 Acute kidney failure, unspecified; E87.2 Acidosis; R65.20 Severe sepsis without septic shock; E11.9 Type 2 diabetes mellitus without complications; E86.0 Dehydration; I11.9 Hypertensive heart disease without heart failure; I25.10 Atherosclerotic heart disease of native coronary artery without angina pectoris; I25.2 Old myocardial infarction; M10.9 Gout, unspecified; Z79.82 Long term (current) use of aspirin; Z79.84 Long term (current) use of oral hypoglycemic drugs; Z79.899 Other long term (current) drug therapy; Z83.3 Family history of diabetes mellitus; Z90.710 Acquired absence of both cervix and uterus; Z80.1 Family history of malignant neoplasm of trachea, bronchus and lung; Z88.0 Allergy status to penicillin; R94.8 Abnormal results of function studies of other organs and systems; M19.90 Unspecified osteoarthritis, unspecified site; Z95.5 Presence of coronary angioplasty implant and graft
CPT/HCPCS: 36415; 71046; 80053; 81001; 83605; 84550; 85025; 87040; 87077; 87086; 87186; 96360; 99285

== ENCOUNTER → 2020-03-25 | Outpatient (CLI) | payer MEDICARE, OTHER ==
--- NOTE | 2020-03-25 14:41 | US ---
EXAMINATION TYPE: US kidneys/renal and bladder DATE OF EXAM: 03/25/2020 COMPARISON: None CLINICAL HISTORY: 79-year-old female R94.4 Abnormal kidney function studies. Abnormal labs TECHNIQUE: Multiple sonographic images of the kidneys and bladder are obtained. FINDINGS: EXAM MEASUREMENTS: Right Kidney: 10.2 x 4.4 x 4.9 cm Left Kidney: 10.3 x 3.9 x 3.8 cm Right Kidney: Extrarenal pelvis versus slightly dilated renal pelvis= 1.2 cm Left Kidney: Appeared wnl Bladder: wnl Bilateral Jets seen: Yes IMPRESSION: Mild pelviectasis versus an extrarenal pelvis on the right. No calyceal dilatation to suggest hydrone phrosis.
== END | disposition home or self-care (01) ==
LOC: RADUSWWP 12:13
PROVIDERS: ATTEND Family Medicine
DX: R94.4 Abnormal results of kidney function studies (principal)
CPT/HCPCS: 76770

== ENCOUNTER → 2021-12-11 | Outpatient (CLI) | payer MEDICARE, OTHER ==
--- NOTE | 2021-12-12 07:57 | US ---
EXAMINATION TYPE: US kidneys/renal and bladder DATE OF EXAM: 12/11/2021 COMPARISON: Ultrasound kidneys March 25, 2020 CLINICAL HISTORY: N18.4 CKD STAGE 4. EXAM MEASUREMENTS: Right Kidney: 9.4 x 4.0 x 4.4 cm Left Kidney: 9.9 x 3.5 x 4.0 cm Right Kidney: Partially obscured by overlying bowel gas, portions visualized wnl Left Kidney: No hydronephrosis or masses seen Bladder: wnl There is no evidence for hydronephrosis at this point in time. No nephrolithiasis is seen. No joon s are identified. The urinary bladder is adequately distended. Bilateral ureteral jets are seen. IMPRESSION: No hydronephrosis is evident bilaterally.
== END | disposition home or self-care (01) ==
LOC: RADUSWWP 15:38
PROVIDERS: ATTEND Family Medicine
DX: N18.4 Chronic kidney disease, stage 4 (severe) (principal)
CPT/HCPCS: 76770

== ENCOUNTER 2022-05-11 04:14 | Inpatient (IN) | payer MEDICARE, OTHER ==
--- NOTE | 2022-05-11 04:29 | ED ---
Chest Pain HPI - General Chief Complaint: Chest Pain Stated Complaint: Chest Pain Time Seen by Provider: 05/11/22 04:24 Source: patient Mode of arrival: wheelchair Limitations: no limitations - Related Data Home Medications Medication Instructions Recorded Confirmed Amlodipine/Valsartan/Hcthiazid 1 tab PO DAILY 01/16/18 05/04/19 [Yqmkt-Ojbbb-Mlhy 10-160-25 MG] Cetirizine HCl [Zyrtec] 10 mg PO DAILY 01/16/18 05/04/19 Cholecalciferol [Vitamin D3 (25 5,000 unit PO DAILY 01/16/18 05/04/19 Mcg = 1000 Iu)] Famotidine [Pepcid] 20 mg PO DAILY 01/16/18 05/04/19 atenoloL [Tenormin] 50 mg PO DAILY 01/16/18 05/04/19 glipiZIDE XL [Glucotrol XL] 5 mg PO DAILY 01/16/18 05/04/19 Aspirin [Adult Low Dose Aspirin EC] 81 mg PO HS 05/04/19 05/04/19 Furosemide [Lasix] 20 mg PO DAILY PRN 05/05/19 05/05/19 Oxybutynin Chloride [Ditropan] 5 mg PO TID 05/07/19 05/07/19 Previous Rx's Medication Instructions Recorded allopurinoL [Zyloprim] 100 mg PO DAILY 30 Days #30 tab 05/07/19 cefUROXime axetiL [Ceftin] 500 mg PO BID 5 Days #10 tab 05/07/19 predniSONE 10 mg PO DIRECTED 6 Days #7 tab 05/07/19 Allergies Allergy/AdvReac Type Severity Reaction Status Date / Time Penicillins Allergy Unknown Verified 05/11/22 04:16 Review of Systems ROS Statement: Those systems with pertinent positive or pertinent negative responses have been documented in the HPI. ROS Other: All systems not noted in ROS Statement are negative. EKG Findings - EKG Comments: EKG Findings:: EKG sinus 61 CA 283 QRS 109 QTc 4:15 Past Medical History Past Medical History: Coronary Artery Disease (CAD), Chest Pain / Angina, Diabetes Mellitus, Myocardial Infarction ([place]), Osteoarthritis (OA) Last Myocardial Infarction Date:: 2006 History of Any Multi-Drug Resistant Organisms: None Reported Past Surgical History: Cholecystectomy, Heart Catheterization With Stent, Hysterectomy, Orthopedic Surgery Additional Past Surgical History / Comment(s): carpal tunnel shoulder surg Past Anesthesia/Blood Transfusion Reactions: No Reported Reaction Date of Last Stent Placement:: 2006 Past Psychological History: No Psychological Hx Reported Smoking Status: Never smoker Past Alcohol Use History: None Reported Past Drug Use History: None Reported - Past Family History Father Additional Family Medical History / Comment(s): of cancer of lungs from smoking Mother Family Medical History: Diabetes Mellitus Additional Family Medical History / Comment(s): of complications of diabetes General Exam Limitations: no limitations Course Vital Signs 05/11/22 05/11/22 05/11/22 04:16 04:37 05:00 Temperature 97.4 F L Pulse Rate 61 60 60 Respiratory 16 16 16 Rate Blood Pressure 135/64 149/65 137/59 O2 Sat by Pulse 98 97 94 L Oximetry Disposition Clinical Impression: Atypical chest pain, Chest pain Disposition: HOME SELF-CARE Condition: Good Instructions (If sedation given, give patient instructions): Chest Pain (ED) Is patient prescribed a controlled substance at d/c from ED?: No Referrals: Kasia Law MD [Primary Care Provider] - 1-2 days Time of Disposition: 06:00
[2022-05-11 04:44] LABS: Basophils # (A) 0.1 k/uL (0-0.2); Basophils % (A) 1 %; Eosinophils # (A) 0.4 k/uL (0-0.7); Eosinophils % (A) 4 %; HCT 40.7 % (34.0-46.0); HGB 13.5 gm/dL (11.4-16.0); Lymphocytes # (A) 2.5 k/uL (1.0-4.8); Lymphocytes % (A) 27 %; MCH 28.3 pg (25.0-35.0); MCHC 33.3 g/dL (31.0-37.0); Mean Platelet Volume 9.2; Monocytes # (A) 0.5 k/uL (0-1.0); Monocytes % (A) 6 %; Neutrophils # (A) 5.7 k/uL (1.3-7.7); Neutrophils % (A) 61 %; Platelet Count 154 k/uL (150-450); RBC 4.78 m/uL (3.80-5.40); RDW 14.4 % (11.5-15.5); WBC 9.5 k/uL (3.8-10.6)
[2022-05-11 05:03] LABS: Total Protein 6.8 g/dL (6.3-8.2)
[2022-05-11 05:04] LABS: Calcium 9.4 mg/dL (8.4-10.2); Potassium 4.1 mmol/L (3.5-5.1); Total Bilirubin 0.4 mg/dL (0.2-1.3)
--- NOTE | 2022-05-11 05:13 | XR ---
EXAMINATION TYPE: XR chest 2V DATE OF EXAM: 05/11/2022 COMPARISON: 05/04/2019 HISTORY: Chest pain TECHNIQUE: 2 views FINDINGS: Heart and mediastinum are normal. Lungs are clear. Diaphragm is normal. Bony thorax is inta ct. IMPRESSION: Normal chest. No change.
[2022-05-11 05:29] LABS: INR 0.9 (<1.2); Partial Thromboplastin Time 25.5 sec (22.0-30.0); Prothrombin Time 10.1 sec (9.0-12.0)
[2022-05-11] MEDS ORDERED: MORPHINE SULFATE 4 MG/ML SYRINGE IV PRN (06:20)
[2022-05-11] MEDS ORDERED: ONDANSETRON 4 MG/2 ML VIAL IVP PRN (06:20)
[2022-05-11] MEDS ORDERED: NALOXONE 0.4 MG/ML 1 ML VIAL IV PRN (06:20)
[2022-05-11] MEDS ORDERED: ASPIRIN 81 MG PO STA (06:21)
--- NOTE | 2022-05-11 06:23 | ED ---
Medical Decision Making - Medical Decision Making 82 female prior to discharge was again having chest pain which again did resolve without nitro this time the patient became uncomfortable, she is scheduled for stress test in 2 weeks at this time she would like to see facility rehab director today concerning this chest pain and frequency other - Lab Data Result diagrams: 05/11/22 04:37 05/11/22 04:37 Lab Results 05/11/22 05/11/22 05/11/22 Range/Units 04:37 04:37 04:37 WBC 9.5 (3.8-10.6) k/uL RBC 4.78 (3.80-5.40) m/uL Hgb 13.5 (11.4-16.0) gm/dL Hct 40.7 (34.0-46.0) % MCV 85.0 (80.0-100.0) fL MCH 28.3 (25.0-35.0) pg MCHC 33.3 (31.0-37.0) g/dL RDW 14.4 (11.5-15.5) % Plt Count 154 (150-450) k/uL MPV 9.2 Neutrophils % 61 % Lymphocytes % 27 % Monocytes % 6 % Eosinophils % 4 % Basophils % 1 % Neutrophils # 5.7 (1.3-7.7) k/uL Lymphocytes # 2.5 (1.0-4.8) k/uL Monocytes # 0.5 (0-1.0) k/uL Eosinophils # 0.4 (0-0.7) k/uL Basophils # 0.1 (0-0.2) k/uL PT 10.1 (9.0-12.0) sec INR 0.9 (<1.2) APTT 25.5 (22.0-30.0) sec Sodium 139 (137-145) mmol/L Potassium 4.1 (3.5-5.1) mmol/L Chloride 107 (98-107) mmol/L Carbon Dioxide 25 (22-30) mmol/L Anion Gap 7 mmol/L BUN 40 H (7-17) mg/dL Creatinine 2.10 H (0.52-1.04) mg/dL Est GFR (CKD-EPI)AfAm 25 (>60 ml/min/1.73 sqM) Est GFR (CKD-EPI)NonAf 22 (>60 ml/min/1.73 sqM) Glucose 121 H (74-99) mg/dL Calcium 9.4 (8.4-10.2) mg/dL Magnesium 2.0 (1.6-2.3) mg/dL Total Bilirubin 0.4 (0.2-1.3) mg/dL AST 29 (14-36) U/L ALT 26 (4-34) U/L Alkaline Phosphatase 71 (38-126) U/L Troponin I (0.000-0.034) ng/mL NT-Pro-B Natriuret Pep pg/mL Total Protein 6.8 (6.3-8.2) g/dL Albumin 4.0 (3.5-5.0) g/dL Lipase 394 H (23-300) U/L 05/11/22 05/11/22 Range/Units 04:37 04:37 WBC (3.8-10.6) k/uL RBC (3.80-5.40) m/uL Hgb (11.4-16.0) gm/dL Hct (34.0-46.0) % MCV (80.0-100.0) fL MCH (25.0-35.0) pg MCHC (31.0-37.0) g/dL RDW (11.5-15.5) % Plt Count (150-450) k/uL MPV Neutrophils % % Lymphocytes % % Monocytes % % Eosinophils % % Basophils % % Neutrophils # (1.3-7.7) k/uL Lymphocytes # (1.0-4.8) k/uL Monocytes # (0-1.0) k/uL Eosinophils # (0-0.7) k/uL Basophils # (0-0.2) k/uL PT (9.0-12.0) sec INR (<1.2) APTT (22.0-30.0) sec Sodium (137-145) mmol/L Potassium (3.5-5.1) mmol/L Chloride (98-107) mmol/L Carbon Dioxide (22-30) mmol/L Anion Gap mmol/L BUN (7-17) mg/dL Creatinine (0.52-1.04) mg/dL Est GFR (CKD-EPI)AfAm (>60 ml/min/1.73 sqM) Est GFR (CKD-EPI)NonAf (>60 ml/min/1.73 sqM) Glucose (74-99) mg/dL Calcium (8.4-10.2) mg/dL Magnesium (1.6-2.3) mg/dL Total Bilirubin (0.2-1.3) mg/dL AST (14-36) U/L ALT (4-34) U/L Alkaline Phosphatase (38-126) U/L Troponin I <0.012 (0.000-0.034) ng/mL NT-Pro-B Natriuret Pep 272 pg/mL Total Protein (6.3-8.2) g/dL Albumin (3.5-5.0) g/dL Lipase (23-300) U/L Disposition Clinical Impression: Chest pain Disposition: ADMITTED IP TO THIS HOSP Condition: Good Instructions (If sedation given, give patient instructions): Chest Pain (ED) Referrals: Kasia Law MD [Primary Care Provider] - 1-2 days Time of Disposition: 06:20
[2022-05-11] MEDS ORDERED: ASPIRIN 325 MG TAB PO SCH (09:00)
[2022-05-11] MEDS ORDERED: DOBUTamine DRIP for NUC MED 500 MG in DEXTROSE/WATER 1 250ML.BAG IV PRN (09:27)
--- NOTE | 2022-05-11 09:53 | P.HPIM ---
History of Present Illness H&P Date: 05/11/22 Chief Complaint: Chest pain Monica Bah, is an 82-year-old female patient of Dr. Law who presented to [facility] emergency room with a chief complaint of chest pain. Patient states that she started having chest pain about 3 weeks ago she was seen by her primary care physician who made her an appointment with cardiology, sometimes in the next 2 weeks, however patient continued to have more episodes of chest pain and she decided to come to emergency room for further evaluation. Patient describes episodes of chest pain as a pressure sensation in the lower sternal area that lasts 5-7 minutes each time sometimes after activities but occasionally at rest. She denies any radiation of the pain to the jaw or to the back or to the left arm she denies any nausea or vomiting shortness of breath or diaphoresis was chest pain. She was evaluated in the emergency room vital examination on presentation revealed a temperature of 97.4 pulse 61 respiration 16 blood pressure 135/64 pulse ox 98% on room air Laboratory data revealed a white blood count of 9.5 hemoglobin 13.5 platelet count 154 BUN 40 creatinine 2.10 lipase slightly elevated at 394 troponin level was negative Testing in the emergency room revealed EKG done in the emergency room revealed sinus rhythm with first-degree AV block and left anterior fascicular block. Chest x-ray done in the emergency room revealed normal chest no change Patient was admitted to medical floor for further evaluation and treatment Past medical history is significant for history of hypertension, history of c hronic kidney disease, history of coronary artery disease with history of 2 stent placement 15 years ago and 17 years ago, and history of gout, history of hyperlipidemia, and history of [id number] diabetes mellitus. Past Medical History Past Medical History: Coronary Artery Disease (CAD), Chest Pain / Angina, Diabetes Mellitus, Myocardial Infarction ([place]), Osteoarthritis (OA) Last Myocardial Infarction Date:: 2006 History of Any Multi-Drug Resistant Organisms: None Reported Past Surgical History: Cholecystectomy, Heart Catheterization With Stent, Hysterectomy, Orthopedic Surgery Additional Past Surgical History / Comment(s): carpal tunnel shoulder surg Past Anesthesia/Blood Transfusion Reactions: No Reported Reaction Date of Last Stent Placement:: 2006 Past Psychological History: No Psychological Hx Reported Smoking Status: Never smoker Past Alcohol Use History: None Reported Past Drug Use History: None Reported - Past Family History Father Additional Family Medical History / Comment(s): of cancer of lungs from smoking Mother Family Medical History: Diabetes Mellitus Additional Family Medical History / Comment(s): of complications of diabetes Medications and Allergies Home Medications Medication Instructions Recorded Confirmed Type Cetirizine HCl [Zyrtec] 10 mg PO DAILY 01/16/18 05/11/22 History Famotidine [Pepcid] 20 mg PO DAILY 01/16/18 05/11/22 History atenoloL [Tenormin] 50 mg PO DAILY 01/16/18 05/11/22 History Aspirin [Adult Low Dose Aspirin EC] 81 mg PO HS 05/04/19 05/11/22 History Furosemide [Lasix] 20 mg PO DAILY 05/05/19 05/11/22 History Fesoterodine Fumarate 4 mg PO DAILY 05/11/22 05/11/22 History [Fesoterodine Fumarate ER] Nitroglycerin Sl Tabs [Nitrostat] 0.4 mg SUBLINGUAL Q5M PRN 05/11/22 05/11/22 History Olmesartan Medoxomil [Benicar] 40 mg PO DAILY 05/11/22 05/11/22 History Simvastatin [Zocor] 10 mg PO HS 05/11/22 05/11/22 History allopurinoL [Zyloprim] 100 mg PO BID 05/11/22 05/11/22 History glipiZIDE 5 mg PO DAILY 05/11/22 05/11/22 History Allergies Allergy/AdvReac Type Severity Reaction Status Date / Time Penicillins Allergy Rash/Hives Verified 05/11/22 08:07 Steroid (unknown) Allergy Rash/Hives Uncoded 05/11/22 08:09 Physical Exam Vitals: Vital Signs Temp Pulse Resp BP Pulse Ox 05/11/22 08:04 55 L 16 136/60 98 05/11/22 07:28 57 L 16 125/57 99 05/11/22 06:00 58 L 16 142/67 97 05/11/22 05:00 60 16 137/59 94 L 05/11/22 04:37 60 16 149/65 97 05/11/22 04:16 97.4 F L 61 16 135/64 98 Intake and Output 05/10/22 05/11/22 05/11/22 22:59 06:59 14:59 Other: Weight 81.647 kg In general patient is alert and oriented x 3 in no distress HEENT head normocephalic and atraumatic Neck is supple no JVD no goiter no lymphadenopathy no carotid bruit Chest examination is clear to auscultation no crackles no wheezing Cardiac exam reveals regular heart sounds S1 and S2 no gallops no murmurs Abdomen is soft nontender no organomegaly with normal bowel sounds Extremity exam reveals 2+ edema no cyanosis or clubbing Neurological examination reveals no gross focal deficits Results CBC & Chem 7: 05/11/22 04:37 05/11/22 04:37 Labs: Abnormal Lab Results - Last 24 Hours (Table) 05/11/22 Range/Units 04:37 BUN 40 H (7-17) mg/dL Creatinine 2.10 H (0.52-1.04) mg/dL Glucose 121 H (74-99) mg/dL Lipase 394 H (23-300) U/L Assessment and Plan Plan: Episodes of chest pain, in an 82 -year-old female with multiple cardiac risk factors including previous history of coronary artery disease and stent placement in the past Underlying history of chronic kidney disease creatinine 2.1 Underlying history of gout Underlying history of hypertension Underlying history of hyperlipidemia Underlying history of [id number]-nbrhtxsgu diabetes mellitus Underlying history of osteoarthritis with previous history of joint replacement surgery At this time patient was seen and examined Home medications reviewed and reordered Cardiology consult requested Plans is for stress test today Will follow closely
[2022-05-11] MEDS: SODIUM CHLORIDE 0.9% 1,000 ML IV SCH ×2 (10:31→15:43)
--- NOTE | 2022-05-11 11:31 | P.CRDCN ---
History of Present Illness Consult date: 05/11/22 Consult reason: chest pain History of present illness: History of present illness: This is an 82-year-old female patient with past medical history of coronary artery disease with cardiac catheterization and stent, diabetes, osteoarthritis. Patient follows with Dr. Beatty in the office and is scheduled for a stress test on 05/26. Patient states that she has had chest pain in the mid sternal lower sternal area that happens mostly when she is sleeping and wakes her up. It lasts for about 5-10 minutes and sometimes she takes a nitroglycerin which takes it away. Sometimes the pain will go away on its own without nitroglycerin. This going on for the past couple of months. Patient denies having shortness of breath or dizziness. She denies having any abdominal pain. EKG sinus rhythm with no acute ST changes 2 CBC unremarkable. BUN 40 creatinine 2.1. Troponin negative 2 draws. Triglycerides 290, cholesterol 153, LDL 61, HDL 33. ProBNP 272. Lipase 394. TSH 4.62 Review Of Systems: Constitutional: No fever, no chills. No weakness, fatigue or lethargy. EENT: No headache. No dizziness. Lungs: No shortness of breath, cough, no sputum production. No wheezing. Cardiovascular: No chest pain, no lower extremity edema. No palpitations. No paroxysmal nocturnal dyspnea. No orthopnea. No lightheadedness or dizziness. No syncopal episodes. Abdominal: No abdominal pain. No nausea, vomiting. No diarrhea. No constipat ion. No bloody or tarry stools.. No loss of appetite. Genitourinary: No dysuria.. No urinary retention. Musculoskeletal: No myalgias. No muscle weakness, no gait dysfunction, no frequent falls. No back pain. No neck pain. Integumentary: No wounds, no lesions. No rash or pruritus. No unusual bruising. Neurologic: No aphasia. No facial droop. No change in mentation. No head injury. No headache. No paralysis. No paresthesia. Psychiatric: No depression. No anxiety. Endocrine: No abnormal blood sugars. Physical examination: Gen: This is a 82-year-old female. She is resting in a chair in the ER cubicle and appears to be comfortable VS: Reviewed HEENT: Head is atraumatic, normocephalic. Pupils equal, round. Sclerae is anicteric. NECK: Supple. No JVD. No lymphadenopathy. No thyromegaly. LUNGS: Clear to auscultation. No wheezes or rhonchi. No intercostal retractions. HEART: Regular rate and rhythm. No murmur. ABDOMEN: Soft. Bowel sounds are present. No masses. No tenderness. EXTREMITIES: 1+ pedal edema. No calf tenderness. NEUROLOGICAL: Patient is awake, alert and oriented x3. Cranial nerves 2 through 12 are grossly intact. Assessment: Chest pain, acute coronary syndrome has been ruled out History of coronary artery disease Diabetes mellitus type 2 Plan: Obtain dobutamine stress echocardiogram Obtain 2-D echocardiogram and Doppler study to assess cardiac structure and function Further recommendations to follow based upon clinical course Thank you kindly for this consultation. Nurse practitioner note has been reviewed, I agree with documented findings and plan of care. Patient was seen and examined. Past Medical History Past Medical History: Coronary Artery Disease (CAD), Chest Pain / Angina, Diabetes Mellitus, Myocardial Infarction ([place]), Osteoarthritis (OA) Last Myocardial Infarction Date:: 2006 History of Any Multi-Drug Resistant Organisms: None Reported Past Surgical History: Cholecystectomy, Heart Catheterization With Stent, Hysterectomy, Orthopedic Surgery Additional Past Surgical History / Comment(s): carpal tunnel shoulder surg Past Anesthesia/Blood Transfusion Reactions: No Reported Reaction Date of Last Stent Placement:: 2006 Past Psychological History: No Psychological Hx Reported Smoking Status: Never smoker Past Alcohol Use History: None Reported Past Drug Use History: None Reported - Past Family History Father Additional Family Medical History / Comment(s): of cancer of lungs from smoking Mother Family Medical History: Diabetes Mellitus Additional Family Medical History / Comment(s): of complications of diabetes Medications and Allergies Home Medications Medication Instructions Recorded Confirmed Type Cetirizine HCl [Zyrtec] 10 mg PO DAILY 01/16/18 05/11/22 History Famotidine [Pepcid] 20 mg PO DAILY 01/16/18 05/11/22 History atenoloL [Tenormin] 50 mg PO DAILY 01/16/18 05/11/22 History Aspirin [Adult Low Dose Aspirin EC] 81 mg PO HS 05/04/19 05/11/22 History Furosemide [Lasix] 20 mg PO DAILY 05/05/19 05/11/22 History Fesoterodine Fumarate 4 mg PO DAILY 05/11/22 05/11/22 History [Fesoterodine Fumarate ER] Nitroglycerin Sl Tabs [Nitrostat] 0.4 mg SUBLINGUAL Q5M PRN 05/11/22 05/11/22 History Olmesartan Medoxomil [Benicar] 40 mg PO DAILY 05/11/22 05/11/22 History Simvastatin [Zocor] 10 mg PO HS 05/11/22 05/11/22 History allopurinoL [Zyloprim] 100 mg PO BID 05/11/22 05/11/22 History glipiZIDE 5 mg PO DAILY 05/11/22 05/11/22 History Allergies Allergy/AdvReac Type Severity Reaction Status Date / Time Penicillins Allergy Rash/Hives Verified 05/11/22 08:07 Steroid (unknown) Allergy Rash/Hives Uncoded 05/11/22 08:09 Physical Exam Vitals: Vital Signs Temp Pulse Resp BP Pulse Ox 05/11/22 10:28 56 L 16 132/69 98 05/11/22 08:04 55 L 16 136/60 98 05/11/22 07:28 57 L 16 125/57 99 05/11/22 06:00 58 L 16 142/67 97 05/11/22 05:00 60 16 137/59 94 L 05/11/22 04:37 60 16 149/65 97 05/11/22 04:16 97.4 F L 61 16 135/64 98 Intake and Output 05/10/22 05/11/22 05/11/22 22:59 06:59 14:59 Other: Weight 81.647 kg Results 05/11/22 04:37 05/11/22 04:37 Cardiac Enzymes 05/11/22 05/11/22 05/11/22 Range/Units 04:37 04:37 09:59 AST 29 (14-36) U/L Troponin I <0.012 <0.012 (0.000-0.034) ng/mL Coagulation 05/11/22 Range/Units 04:37 PT 10.1 (9.0-12.0) sec APTT 25.5 (22.0-30.0) sec CBC 05/11/22 Range/Units 04:37 WBC 9.5 (3.8-10.6) k/uL RBC 4.78 (3.80-5.40) m/uL Hgb 13.5 (11.4-16.0) gm/dL Hct 40.7 (34.0-46.0) % Plt Count 154 (150-450) k/uL Comprehensive Metabolic Panel 05/11/22 Range/Units 04:37 Sodium 139 (137-145) mmol/L Potassium 4.1 (3.5-5.1) mmol/L Chloride 107 (98-107) mmol/L Carbon Dioxide 25 (22-30) mmol/L BUN 40 H (7-17) mg/dL Creatinine 2.10 H (0.52-1.04) mg/dL Glucose 121 H (74-99) mg/dL Calcium 9.4 (8.4-10.2) mg/dL AST 29 (14-36) U/L ALT 26 (4-34) U/L Alkaline Phosphatase 71 (38-126) U/L Total Protein 6.8 (6.3-8.2) g/dL Albumin 4.0 (3.5-5.0) g/dL Current Medications Generic Name Dose Route Start Last Admin Trade Name Freq PRN Reason Stop Dose Admin Aspirin 325 mg 05/11/22 09:00 05/11/22 08:00 Aspirin 325 Mg Tab PO Not Given DAILY MAGI Sodium Chloride 1,000 mls @ 130 mls/hr 05/11/22 06:30 05/11/22 10:31 Saline 0.9% IV 130 mls/hr .[id number] MAGI Administration Dobutamine HCl/Dextrose 500 mg 250 mls @ 24.494 mls/hr 05/11/22 09:27 / IV Solution IV 05/11/22 13:29 .[id number] PRN Per Protocol Protocol 10 MCG/KG/MIN Morphine Sulfate 4 mg 05/11/22 06:20 Morphine Sulfate 4 Mg/Ml Syringe IV Q4HR PRN Severe Pain (Scale 7 to 10) Naloxone HCl 0.2 mg 05/11/22 06:20 Naloxone 0.4 Mg/Ml 1 Ml Vial IV Q2M PRN Opioid Reversal Ondansetron HCl 4 mg 05/11/22 06:20 Ondansetron 4 Mg/2 Ml Vial IVP Q8HR PRN Nausea And Vomiting Intake and Output 05/10/22 05/11/22 05/11/22 22:59 06:59 14:59 Other: Weight 81.647 kg 05/11/22 04:37 05/11/22 04:37
--- NOTE | 2022-05-11 14:00 | CA ---
Dobutamine Stress Echocardiogram Report Monica Bah Age: 82 Gender: F : 1940 Exam Date: 05/11/2022 11:19 Exam Location: [facility] Ordering Physician: Mariana Recinos Referring Physician: [id number] Oneal Drop Count Associate: ROJAS Technologist: Ht (in): 59 Wt (lb): 180 Procedure CPT: Indication: CP ICD-9 Codes: Rhythm: Patient History: CHEST PAIN Cardiac Medications: Medications in past 24 hours: Contrast: Lumason Total Dose (mL): Stress Results Protocol: Dobutamine Peak Dose (???g/kg/min): 40 Duration (min:sec): Atropine:(mg) Target HR: 118 Double Product: [id number] Resting HR: 60 Resting BP: 163 / 52 Peak HR: 103 Peak BP: 154 / 124 Max Predicted HR: 139 74 % Max Predicted HR Stress Summary: BP Response: Reason for Termination: DIRECTED PER [employer] T[employer]ER Cardiac Symptoms: CHEST PAIN DURING DOBUTAMINE INFUSION ECG Analysis Resting EKG: Stress EKG: Arrhythmia: Echo Analysis Base Echo Analysis: Low Echo Anaylsis: Peak Echo Analysis: Recovery Echo: MEASUREMENTS (Male/Female) Normal Values CONCLUSIONS Dobutamine stress echo with Definity contrast line baseline 12- lead EKG shows sinus rhythm with a left anterior fascicular block occasional PVCs and subtle secondary changes in the lateral precordial leads lead 1 and aVL Patient received dobutamine infusion per protocol She had chest discomfort with this Further ST depression with T-wave inversion in aVL as well as V2 This resolved slowly with IV beta blockers and nitroglycerin Baseline 2-D echo images showed normal LV systolic function with contrast echocardiography With dobutamine there was a step eyes augmentation of overall LV contractility No wall motion abnormalities noted Adequate wall thickening noted in all myocardial segments Impression Chest discomfort with abnormal ECG response No echocardiographic evidence for ischemia Dr. Jim Hamilton MD (Electronically Signed) Final Date: 11 May 2022 13:58
[2022-05-11 19:23] LABS: Chol/HDL Ratio 4.46 Ratio; LDL Cholesterol,Calculated 46.8 mg/dL (0.0-131.0)
[2022-05-11] MEDS: allopurinoL 100 MG TAB PO SCH (20:19)
[2022-05-11] MEDS: ASPIRIN 81 MG PO SCH (20:20)
[2022-05-11] MEDS ORDERED: ATORVASTATIN 10 MG TAB PO SCH (21:00)
[2022-05-12] MEDS: SODIUM CHLORIDE 0.9% 1,000 ML IV SCH ×4 (02:28→17:58)
[2022-05-12] MEDS: NITROGLYCERIN SL TABS 0.4 MG TAB SUBLINGUAL PRN (06:50)
[2022-05-12] MEDS ORDERED: ALPRAZolam 0.25 MG TAB PO PRN (07:31)
[2022-05-12] MEDS ORDERED: ALPRAZolam 0.5 MG TAB PO PRN (07:31)
[2022-05-12] MEDS: TROSPIUM CHLORIDE 20 MG TABLET PO SCH (08:35)
[2022-05-12] MEDS: ATORVASTATIN 40 MG TAB PO SCH (08:35)
[2022-05-12] MEDS: atenoloL 50 MG TAB PO SCH (08:35)
[2022-05-12] MEDS: LORATADINE 10 MG TAB PO SCH (08:35)
[2022-05-12] MEDS: FAMOTIDINE 20 MG TAB PO SCH (08:35)
[2022-05-12] MEDS: allopurinoL 100 MG TAB PO SCH ×2 (08:35→20:10)
[2022-05-12 08:46] LABS: African American GFR (CKD) 36 (>60 ml/min/1.73 sqM); Anion Gap 5 mmol/L; Blood Urea Nitrogen 30 mg/dL (7-17); Calcium 8.7 mg/dL (8.4-10.2); Carbon Dioxide 22 mmol/L (22-30); Chloride 113 mmol/L (98-107); Glucose 162 mg/dL (74-99); Non-African American GFR(CKD) 31 (>60 ml/min/1.73 sqM); Sodium 140 mmol/L (137-145)
[2022-05-12] MEDS ORDERED: FUROSEMIDE 20 MG TAB PO SCH (09:00)
[2022-05-12] MEDS ORDERED: LOSARTAN 50 MG TAB PO SCH (09:00)
[2022-05-12] MEDS ORDERED: VERAPAMIL 2.5 MG/ML 2 ML AMP ONE (09:59)
[2022-05-12] MEDS: glipiZIDE 5 MG TAB PO SCH (10:01)
--- NOTE | 2022-05-12 10:42 | P.PN ---
Subjective Progress Note Date: 05/12/22 Monica Bah, is an 82-year-old female patient of Dr. Law who presented to [facility] emergency room with a chief complaint of chest pain. Patient states that she started having chest pain about 3 weeks ago she was seen by her primary care physician who made her an appointment with cardiology, sometimes in the next 2 weeks, however patient continued to have more episodes of chest pain and she decided to come to emergency room for further evaluation. Patient describes episodes of chest pain as a pressure sensation in the lower sternal area that lasts 5-7 minutes each time sometimes after activities but occasionally at rest. She denies any radiation of the pain to the jaw or to the back or to the left arm she denies any nausea or vomiting shortness of breath or diaphoresis was chest pain. She was evaluated in the emergency room vital examination on presentation revealed a temperature of 97.4 pulse 61 respiration 16 blood pressure 135/64 pulse ox 98% on room air Laboratory data revealed a white blood count of 9.5 hemoglobin 13.5 platelet count 154 BUN 40 creatinine 2.10 lipase slightly elevated at 394 troponin level was negative Testing in the emergency room revealed EKG done in the emergency room revealed sinus rhythm with first-degree AV block and left anterior fascicular block. Chest x-ray done in the emergency room revealed normal chest no change Patient was admitted to medical floor for further evaluation and treatment Past medical history is significant for history of hypertension, history of chronic kidney disease, history of coronary artery disease with history of 2 stent placement 15 years ago and 17 years ago, and history of gout, history of hyperlipidemia, and history of [id number]-[id number] diabetes mellitus. On 05/12/2022 patient is alert and oriented 3. Today per cardiology for cardiac catheterization. Creatinine 1.5 for about 30. Patient will need gentle hydration post procedure. At this time patient denies chest pain or shortness of breath. Patient denies nausea vomiting or diarrhea. Patient denies any any urinary burning or frequency. Current temp 98.1, heart rate 60, respiratory rate 16, blood pressure 118/71 with a pulse ox 98% on room air Objective - Vital Signs Vital signs: Vital Signs Temp 98.1 F 05/12/22 07:00 Pulse 60 05/12/22 08:00 Resp 16 05/12/22 08:00 BP 118/71 05/12/22 07:00 Pulse Ox 98 05/12/22 07:00 FiO2 Intake & Output 05/11/22 05/12/22 05/12/22 18:59 06:59 18:59 Intake Total 298 Balance 298 Weight 81.647 kg Intake: Oral 298 Other: Voiding Method Toilet Toilet # Voids 1 1 - Exam In general patient is alert and oriented x 3 in no distress HEENT head normocephalic and atraumatic Neck is supple no JVD no goiter no lymphadenopathy no carotid bruit Chest examination is clear to auscultation no crackles no wheezing Cardiac exam reveals regular heart sounds S1 and S2 no gallops no murmurs Abdomen is soft nontender no organomegaly with normal bowel sounds Extremity exam reveals 2+ edema no cyanosis or clubbing Neurological examination reveals no gross focal deficits - Labs CBC & Chem 7: 05/11/22 04:37 05/12/22 07:59 Labs: Abnormal Lab Results - Last 24 Hours (Table) 05/11/22 05/11/22 05/12/22 Range/Units 04:37 12:56 07:59 Chloride 113 H (98-107) mmol/L BUN 30 H (7-17) mg/dL Creatinine 1.54 H (0.52-1.04) mg/dL Glucose 162 H (74-99) mg/dL Hemoglobin A1c 7.5 H (0.0-6.0) % Triglycerides 274.00 H (0.00-149.00) mg/dL VLDL Cholesterol, Calc 54.80 H (5.00-40.00) mg/dL HDL Cholesterol 29.40 L (40.00-60.00) mg/dL Assessment and Plan Plan: Episodes of chest pain, in an 82 -year-old female with multiple cardiac risk factors including previous history of coronary artery disease and stent placement in the past Underlying history of chronic kidney disease creatinine 2.1 Underlying history of gout Underlying history of hypertension Underlying history of hyperlipidemia Underlying history of [id number]-oeiljaklq diabetes mellitus Underlying history of osteoarthritis with previous history of joint replacement surgery At this time patient was seen and examined Home medications reviewed and reordered Cardiac catheterization planned for 05/12/2022
[2022-05-12] MEDS ORDERED: HEPARIN SODIUM 1,000 UN/ML (10ML VL) ONE (10:43)
[2022-05-12] MEDS ORDERED: ASPIRIN 325 MG TAB ONE (10:52)
--- NOTE | 2022-05-12 10:52 | P.CRDCN ---
History of Present Illness History of present illness: Patient was resting in bed but she had recurrent chest discomfort all night long and it was worse this morning She was given one sublingual nitroglycerin with relief Blood pressure 123/60 367/76 118/71 mmHg Afebrile Heart rate in the 60s Heart sounds are normal no murmurs or gallops or rub Lungs are clear Sodium 140, potassium 5.0, BUN 30 and creatinine 1.54 BUN and creatinine have improved Glucose is elevated Hemoglobin A1c is 7.5 Triglycerides 274 Total cholesterol normal 131 with LDL of 46 and HDL of 29 Elevated lipase of 394 Impression Recurrent chest discomfort with normal cardiac enzymes and repeatedly being relieved with sublingual nitroglycerin Abnormal ECG response during exercise stress echo but no clear-cut abnormalities on stress echo images Hypertension Chronic kidney disease, creatinine was 2.1 Potassium today is 5.[address] Beatty I will proceed with coronary angiogram to look at the vascular supply to the lateral/posterior wall territory Continue atorvastatin Tenormin baby aspirin Amlodipine was added in the evening The dose of losartan was reduced to 100 mg by mouth daily Post cath watch renal function and potassium and continue hydration The patient's LV function is normal Evaluate elevated lipase Past Medical History Past Medical History: Coronary Artery Disease (CAD), Chest Pain / Angina, Diabetes Mellitus, Myocardial Infarction ([place]), Osteoarthritis ([place]) Last Myocardial Infarction Date:: 2006 History of Any Multi-Drug Resistant Organisms: None Reported Past Surgical History: Cholecystectomy, Heart Catheterization With Stent, Hysterectomy, Orthopedic Surgery Additional Past Surgical History / Comment(s): carpal tunnel shoulder surg left knee replacement Past Anesthesia/Blood Transfusion Reactions: No Reported Reaction Date of Last Stent Placement:: 2006 Past Psychological History: No Psychological Hx Reported Smoking Status: Never smoker Past Alcohol Use History: None Reported Past Drug Use History: None Reported - Past Family History Father Additional Family Medical History / Comment(s): of cancer of lungs from smoking Mother Family Medical History: Diabetes Mellitus Additional Family Medical History / Comment(s): of complications of diabetes Medications and Allergies Home Medications Medication Instructions Recorded Confirmed Type Cetirizine HCl [Zyrtec] 10 mg PO DAILY 01/16/18 05/11/22 History Famotidine [Pepcid] 20 mg PO DAILY 01/16/18 05/11/22 History atenoloL [Tenormin] 50 mg PO DAILY 01/16/18 05/11/22 History Aspirin [Adult Low Dose Aspirin EC] 81 mg PO HS 05/04/19 05/11/22 History Furosemide [Lasix] 20 mg PO DAILY 05/05/19 05/11/22 History Fesoterodine Fumarate 4 mg PO DAILY 05/11/22 05/11/22 History [Fesoterodine Fumarate ER] Nitroglycerin Sl Tabs [Nitrostat] 0.4 mg SUBLINGUAL Q5M PRN 05/11/22 05/11/22 History Olmesartan Medoxomil [Benicar] 40 mg PO DAILY 05/11/22 05/11/22 History Simvastatin [Zocor] 10 mg PO HS 05/11/22 05/11/22 History allopurinoL [Zyloprim] 100 mg PO BID 05/11/22 05/11/22 History glipiZIDE 5 mg PO DAILY 05/11/22 05/11/22 History Allergies Allergy/AdvReac Type Severity Reaction Status Date / Time Penicillins Allergy Rash/Hives Verified 05/11/22 08:07 Steroid (unknown) Allergy Rash/Hives Uncoded 05/11/22 08:09 Physical Exam Vitals: Vital Signs Temp Pulse Pulse Resp BP BP BP 05/12/22 08:00 60 16 05/12/22 07:00 98.1 F 60 16 118/71 05/12/22 06:54 16 167/76 05/12/22 06:47 64 18 183/94 05/12/22 02:15 98.1 F 62 17 123/63 05/11/22 19:00 97.5 F L 66 17 114/66 05/11/22 17:39 97.4 F L 62 17 144/72 05/11/22 17:07 97.9 F 64 18 140/71 05/11/22 16:00 71 18 131/66 05/11/22 13:04 57 L 18 105/57 Pulse Ox 05/12/22 08:00 05/12/22 07:00 98 05/12/22 06:54 97 05/12/22 06:47 97 05/12/22 02:15 99 05/11/22 19:00 97 05/11/22 17:39 99 05/11/22 17:07 96 05/11/22 16:00 97 05/11/22 13:04 97 Intake and Output 05/11/22 05/12/22 05/12/22 22:59 06:59 14:59 Intake Total 298 Balance 298 Intake: Oral 298 Other: Voiding Method Toilet Toilet Toilet # Voids 1 1 Weight 81.647 kg Results 05/11/22 04:37 05/12/22 07:59 Cardiac Enzymes 05/11/22 Range/Units 12:56 Troponin I 0.014 (0.000-0.034) ng/mL Lipids 05/11/22 Range/Units 12:56 Triglycerides 274.00 H (0.00-149.00) mg/dL Cholesterol 131.00 (0.00-200.00) mg/dL HDL Cholesterol 29.40 L (40.00-60.00) mg/dL Cholesterol/HDL Ratio 4.46 Ratio Comprehensive Metabolic Panel 05/12/22 Range/Units 07:59 Sodium 140 (137-145) mmol/L Potassium 5.0 (3.5-5.1) mmol/L Chloride 113 H (98-107) mmol/L Carbon Dioxide 22 (22-30) mmol/L BUN 30 H (7-17) mg/dL Creatinine 1.54 H (0.52-1.04) mg/dL Glucose 162 H (74-99) mg/dL Calcium 8.7 (8.4-10.2) mg/dL Current Medications Generic Name Dose Route Start Last Admin Trade Name Freq PRN Reason Stop Dose Admin Allopurinol 100 mg 05/11/22 21:00 05/12/22 08:35 Allopurinol 100 Mg Tab PO 100 mg BID MAGI Administration Alprazolam 0.25 mg 05/12/22 07:31 Alprazolam 0.25 Mg Tab PO Q6HR PRN Mild Anxiety Alprazolam 0.5 mg 05/12/22 07:31 Alprazolam 0.5 Mg Tab PO Q6HR PRN Moderate Anxiety Amlodipine Besylate 2.5 mg 05/12/22 21:00 Amlodipine 2.5 Mg Tab PO HS MAGI Aspirin 81 mg 05/11/22 21:00 05/11/22 20:20 Aspirin 81 Mg PO Not Given HS MAGI Atenolol 50 mg 05/12/22 09:00 05/12/22 08:35 Atenolol 50 Mg Tab PO 50 mg DAILY AMGI Administration Atorvastatin Calcium 40 mg 05/12/22 09:00 05/12/22 08:35 Atorvastatin 40 Mg Tab PO 40 mg DAILY MAGI Administration Famotidine 20 mg 05/12/22 09:00 05/12/22 08:35 Famotidine 20 Mg Tab PO 20 mg DAILY MAGI Administration Glipizide 5 mg 05/12/22 07:30 05/12/22 10:01 Glipizide 5 Mg Tab PO Not Given AC-BRKFST MAGI Sodium Chloride 1,000 mls @ 245 mls/hr 05/11/22 06:30 05/12/22 10:00 Saline 0.9% IV 245 mls/hr .Q4H5M MAGI Administration Heparin Sodium (Porcine) 10, 1,001 mls @ 999 mls/hr 05/13/22 07:00 000 unit/ Sodium Chloride IRRIGATION 05/13/22 23:00 ONCE PRN INTRA-OP Heparin Sodium (Porcine) 2,500 250.5 mls @ 250 mls/hr 05/13/22 07:00 unit/ Sodium Chloride IRRIGATION 05/13/22 23:00 ONCE PRN INTRA-OP Loratadine 10 mg 05/12/22 09:00 05/12/22 08:35 Loratadine 10 Mg Tab PO 10 mg DAILY MAGI Administration Losartan Potassium 100 mg 05/12/22 12:00 Losartan 50 Mg Tab PO DAILY MAGI Morphine Sulfate 4 mg 05/11/22 06:20 Morphine Sulfate 4 Mg/Ml Syringe IV Q4HR PRN Severe Pain (Scale 7 to 10) Naloxone HCl 0.2 mg 05/11/22 06:20 Naloxone 0.4 Mg/Ml 1 Ml Vial IV Q2M PRN Opioid Reversal Nitroglycerin 0.4 mg 05/11/22 20:00 05/12/22 06:50 Nitroglycerin Sl Tabs 0.4 Mg Tab SUBLINGUAL 0.4 mg Q5M PRN Administration Chest Pain Ondansetron HCl 4 mg 05/11/22 06:20 Ondansetron 4 Mg/2 Ml Vial IVP Q8HR PRN Nausea And Vomiting Trospium 20 mg 05/12/22 09:00 05/12/22 08:35 Trospium Chloride 20 Mg Tablet PO 20 mg DAILY MAGI Administration Intake and Output 05/11/22 05/12/22 05/12/22 22:59 06:59 14:59 Intake Total 298 Balance 298 Intake: Oral 298 Other: Voiding Method Toilet Toilet Toilet # Voids 1 1 Weight 81.647 kg 05/11/22 04:37 05/12/22 07:59
[2022-05-12] MEDS ORDERED: IV FLUID CONTINUATION 750 ML IV ONE (10:54)
[2022-05-12] MEDS ORDERED: ASPIRIN 325 MG TAB PO ONE (10:54)
[2022-05-12] MEDS ORDERED: MIDAZOLAM 2 MG/2 ML VIAL IVP ONE (11:02)
[2022-05-12] MEDS ORDERED: LIDOCAINE 1% INJ 10MG/ML (5 ML VIAL-PF) SQ ONE (11:05)
[2022-05-12] MEDS ORDERED: VERAPAMIL SYRINGE (5 MG/10 ML) INTRAARTER ONE (11:06)
[2022-05-12] MEDS ORDERED: HEPARIN SODIUM 1,000 UN/ML (10ML VL) IVP ONE (11:14)
[2022-05-12] MEDS ORDERED: IOPAMIDOL-370 100ML BTL INJ ONE (11:21)
[2022-05-12] MEDS ORDERED: RX INFO: IV CONTRAST WAS GIVEN 1 EACH MISC MISCELLANE PRN (11:43)
[2022-05-12] MEDS ORDERED: SODIUM CHLORIDE 0.9% 1,000 ML IV SCH (11:45)
--- NOTE | 2022-05-12 11:46 | P.PCN ---
Date of Procedure: 05/12/22 Operative Findings: CARDIAC CATHETERIZATION PERFORMING PHYSICIAN: Diego Beatty MD, RPVI PROCEDURE PERFORMED: 1. Selective right and left coronary angiogram 2. Left heart catheterization INDICATION: Chest discomfort in this 82-year-old female patient who is known to have coronary artery disease and prior stenting of the LCx and underwent to (echocardiogram came in to be abnormal. COMPLICATION: None APPROACH: Right radial artery LEVEL OF SEDATION: Moderate with a sedation length of 17 minutes PROCEDURE DESCRIPTION: After obtaining an informed consent, the patient was brought to cardiac civil laboratory technician. Local anesthesia was performed using lidocaine subcutaneously. The right radial artery was cannulated using Seldinger technique, the guidewire passed easily, following that we advanced a 5-Gibraltarian sheath dilator assembly, the wire and dilator were removed and sheath was flushed. Following that, 2 mg of verapamil along with 5000 unit heparin were given. Selective right and left coronary angiogram using a 6-Gibraltarian JR4 and JL 3.5 c atheters. Following that we did left heart catheterization using 6-Gibraltarian pigtail catheter. The procedure was completed there was no complication. SELECTIVE CORONARY ANGIOGRAM: The right coronary artery: Large caliber vessel and dominant vessel. The RCA has critical lesion in the midportion. Also in the midportion the RCA distended with intermediate in-stent restenosis. Distally the RCA has another lesion appears to be in the range of 50% before it bifurcates into PDA and PLV branches. Both appeared to have mild to moderate diffuse disease. Left main: Has critical lesion distally appeared to be in the range of 70-80%. Bifurcates into an LCx and LAD The left circumflex: Moderate caliber vessel nondominant vessel. The LCx is involved in the lesion from the distal left main and has sluggish flow in it. The LCx gives rises into OM1 and going to both are small to medium caliber vessel. The left anterior descending artery: The proximal LAD has critical lesion appeared to be in the range of 80-90%. Gives rises into a large diagonal branch which appeared to have an ostial lesion appeared to be in the range of 60%. The LAD distally appeared to be angiographically normal HEMODYNAMICS: The LVEDP was 20 mmHg was no significant gradient across aortic valve CONCLUSION: 1. Severe triple-vessel CAD 2. Elevated left-sided filling pressure POSTPROCEDURE MANAGEMENT: Medical treatment and consult surgery for evaluation of CABG
[2022-05-12] MEDS: LOSARTAN 50 MG TAB PO SCH (14:45)
--- NOTE | 2022-05-12 14:57 | US ---
EXAMINATION TYPE: US vein mapping BILAT DATE OF EXAM: 05/12/2022 2:34 PM COMPARISON: NONE CLINICAL HISTORY: preop cardiac surgery. SIDE PERFORMED: Bilateral TECHNIQUE: Lower extremity saphenous vein is examined and measured utilizing real time linear array sonography. DUPLEX FINDINGS: Greater Saphenous: Color flow seen Measurements in mm: Right Greater Saphenous: Groin: 7.0 x 4.7 mm High Thigh: 3.8 x 2.6 mm Mid Thigh: 3.7 x 2.7 mm Above Knee: 3.6 x 3.3 mm Knee: 3.8 x 2.8 mm Below Knee: 3.7 x 3.0 mm Mid Calf: 3.1 x 2.6 mm At Ankle: 3.4 x 2.8 mm Left Greater Saphenous: Groin: 5.7 x 4.4 mm High Thigh: 5.8 x 4.6 mm Mid Thigh: 3.3 x 3.3 mm Above Knee: 3.3 x 3.1 mm Knee: 3.1 x 2.8 mm Below Knee: 3.3 x 2.9 mm Mid Calf: 3.1 x 2.1 mm At Ankle: 3.5 x 2.8 mm IMPRESSION: 1. Bilateral GSV measurements listed above. 2. Performing surgeon to determine viability as conduit.
--- NOTE | 2022-05-12 14:57 | US ---
EXAMINATION TYPE: US carotid duplex BILAT DATE OF EXAM: 05/12/2022 COMPARISON: NONE CLINICAL HISTORY: preop cardiac surgery. TECHNIQUE: Carotid duplex ultrasound examination. Indirect Doppler criteria was utilized. FINDINGS: EXAM MEASUREMENTS: RIGHT: Peak Systolic Velocity (PSV) cm/sec ----- Right CCA: 41.4 ----- Right ICA: 74.3 ----- Right ECA: 42.5 ICA/CCA ratio: 1.8 RIGHT: End Diastole cm/sec ----- Right CCA: 9.1 ----- Right ICA: 20.2 ----- Right ECA: 0.0 LEFT: Peak Systolic Velocity (PSV) cm/sec ----- Left CCA: 31.9 ----- Left ICA: 57.2 ----- Left ECA: 56.4 ICA/CCA ratio: 1.8 LEFT: End Diastole cm/sec ----- Left CCA: 7.8 ----- Left ICA: 20.1 ----- Left ECA: 0.0 VERTEBRALS (direction of flow): Right Vertebral: Antegrade Left Vertebral: Antegrade ASSOCIATE STORE MANAGER NOTES: Mild atherosclerotic changes without significant velocity increases seen bilateral ly. IMPRESSION: No hemodynamically significant stenosis in either internal carotid artery. Criteria for Assigning % of Stenosis / Diameter reduction (Estimation based on the indirect measurements of the internal carotid artery velocities (ICA PSV). 1. Normal (no stenosis)=ICA PSV < 125 cm/s: ratio < 2.0: ICA EDV<40 cm/s. 2. Less than 50% stenosis=ICA PSV < 125 cm/s: ratio < 2.0: ICA EDV<40 cm/s. 3. 50 to 69% stenosis=ICA PSV of 125 to 230 cm/s: ration 2.0 ? 4.0: ICA EDV 40-100 cm/s. 4. Greater than 70% stenosis to near occlusion= ICA PSV > 230 cm/s: ratio > 4.0: ICA EDV > 100 cm/s. 5. Near occlusion= ICA PSV velocities may be low or undetectable: variable ratio and ICA EDV. 6. Total occlusion=unable to detect flow.
--- NOTE | 2022-05-12 14:58 | US ---
EXAMINATION TYPE: Pre-Operative Non-Invasive Evaluation of the hand for Potential Radial Artery Price hernandez, Measurements only DATE OF EXAM: 05/12/2022 2:34 PM CLINICAL HISTORY: measurements only. SIDE PERFORMED: Left only per order TECHNIQUE: Radial artery is measured utilizing real time linear array sonography. Radial Artery: Color flow seen Measurements in mm, transverse view: Left Radial: Proximal: 2.2 x 2.0 mm Mid: 1.7 x 1.8 mm Distal: 2.0 x 2.0 mm Unable to visualized artery all the way to antecubital fossa due to IV and bandaging IMPRESSION: 1. Left radial artery measurements as listed above. 2. Performing surgeon to determine viability as conduit.
--- NOTE | 2022-05-12 16:01 | P.GSCN ---
History of Present Illness Consult date: 05/12/22 Reason for Consult: Coronary artery disease with left main disease Requesting physician: Jim Hamilton History of present illness: This is an 82-year-old female who follows on an outpatient basis with Dr. Law for primary care and Dr. Beatty for cardiology. She has a previous medical history of coronary artery disease with myocardial infarction and previous stent in 2006, hypertension, hyperlipidemia, chronic kidney disease, hyf-cnkbuei-wxjiupvge diabetes, gout, osteoarthritis, and never smoker. Apparently she has been experiencing intermittent chest pain without shortness of breath for several months. This is usually relieved with sublingual nitro. She also endorses lower extremity edema. Recently she has been experiencing more frequent episodes of chest pain and was scheduled to undergo stress testing with cardiology on May 26, however her symptoms continued to increase in frequency and she reported to [facility] emergency room yesterday for evaluation and treatment. Troponins were drawn and were negative 3, no ST elevation or depression on EKG. She underwent dobutamine stress testing which was stopped early due to chest pain. She was recommended to undergo heart catheterization which was completed today and which demonstrated critical stenosis in the mid RCA with re-in-stent stenosis, distal left main stenosis 70- 80%, proximal LAD stenosis 80-90% with 60% diagonal stenosis, and left ventricular end diastolic pressure 20 mmHg. Due to these findings consultation was placed to Dr. Javed from cardiothoracic surgery for surgical revascularization recommendations. Review of Systems Review of systems was completed and was negative except as noted - Cardiovascular Reports as per HPI, Reports chest pain, Reports leg edema Past Medical History Past Medical History: Coronary Artery Disease (CAD), Chest Pain / Angina, Diabetes Mellitus, Hyperlipidemia, Hypertension, Myocardial Infarction ([place]), Osteoarthritis (OA), Renal Disease Last Myocardial Infarction Date:: 2006 History of Any Multi-Drug Resistant Organisms: None Reported Past Surgical History: Appendectomy, Cholecystectomy, Heart Catheterization With Stent, Hysterectomy, Orthopedic Surgery Additional Past Surgical History / Comment(s): carpal tunnel shoulder surg left knee replacement Past Anesthesia/Blood Transfusion Reactions: No Reported Reaction Date of Last Stent Placement:: 2006 Past Psychological History: No Psychological Hx Reported Smoking Status: Never smoker Past Alcohol Use History: None Reported Past Drug Use History: None Reported - Past Family History Father Additional Family Medical History / Comment(s): of cancer of lungs from smoking Mother Family Medical History: Diabetes Mellitus Additional Family Medical History / Comment(s): of complications of diabetes Medications and Allergies Home Medications Medication Instructions Recorded Confirmed Type Cetirizine HCl [Zyrtec] 10 mg PO DAILY 01/16/18 05/11/22 History Famotidine [Pepcid] 20 mg PO DAILY 01/16/18 05/11/22 History atenoloL [Tenormin] 50 mg PO DAILY 01/16/18 05/11/22 History Aspirin [Adult Low Dose Aspirin EC] 81 mg PO HS 05/04/19 05/11/22 History Furosemide [Lasix] 20 mg PO DAILY 05/05/19 05/11/22 History Fesoterodine Fumarate 4 mg PO DAILY 05/11/22 05/11/22 History [Fesoterodine Fumarate ER] Nitroglycerin Sl Tabs [Nitrostat] 0.4 mg SUBLINGUAL Q5M PRN 05/11/22 05/11/22 History Olmesartan Medoxomil [Benicar] 40 mg PO DAILY 05/11/22 05/11/22 History Simvastatin [Zocor] 10 mg PO HS 05/11/22 05/11/22 History allopurinoL [Zyloprim] 100 mg PO BID 05/11/22 05/11/22 History glipiZIDE 5 mg PO DAILY 05/11/22 05/11/22 History Allergies Allergy/AdvReac Type Severity Reaction Status Date / Time Penicillins Allergy Rash/Hives Verified 05/11/22 08:07 Steroid (unknown) Allergy Rash/Hives Uncoded 05/11/22 08:09 Surgical - Exam Vital Signs Temp Pulse Resp BP Pulse Ox 97.4 F L 61 16 135/64 98 05/11/22 04:16 05/11/22 04:16 05/11/22 04:16 05/11/22 04:16 05/11/22 04:16 CONSTITUTIONAL: Awake and alert, appears comfortable, cooperative, well- developed, well-nourished, no pain, no acute distress EYES: Pupils equal, round, reactive to light, normal ocular movement ENT: Moist mucous membranes without oral lesions present NECK: No masses, no bruits, trachea midline RESPIRATORY: Lungs sounds clear to auscultation bilaterally. Respirations even, nonlabored. Currently on room air with oxygen saturation 98%. Strong cough. No chest wall deformities. No clubbing or cyanosis present CARDIOVASCULAR: S1, S2 present. Regular rate and rhythm, sinus rhythm on telemetry. Palpable peripheral pulses bilaterally. Bilateral lower extremity edema present. No calf pain or tenderness noted. No significant lower extremity varicosities noted. GASTROINTESTINAL: Abdomen soft, nontender, nondistended without masses or organomegaly noted. There is no rebound or guarding present. Active bowel sounds present 4 quadrants. GENITOURINARY: Deferred INTEGUMENTARY: Skin is warm and dry with evidence of good perfusion. TR band present to right radial artery NEUROLOGIC: Cranial nerves II through XII intact, normal coordination, no obvious motor or sensory deficits, speech is normal MUSKULOSKELETAL: Able to move all extremities, strength equal bilaterally, normal posture PSYCHIATRIC: Alert and oriented to person place and time, appropriate affect, intact judgment and insight Results - Labs 05/11/22 04:37 05/12/22 07:59 Abnormal Lab Results - Last 24 Hours (Table) 05/11/22 05/11/22 05/12/22 Range/Units 04:37 12:56 07:59 Chloride 113 H (98-107) mmol/L BUN 30 H (7-17) mg/dL Creatinine 1.54 H (0.52-1.04) mg/dL Glucose 162 H (74-99) mg/dL Hemoglobin A1c 7.5 H (0.0-6.0) % Triglycerides 274.00 H (0.00-149.00) mg/dL VLDL Cholesterol, Calc 54.80 H (5.00-40.00) mg/dL HDL Cholesterol 29.40 L (40.00-60.00) mg/dL Diabetes panel 05/11/22 05/11/22 05/12/22 Range/Units 04:37 12:56 07:59 Sodium 140 (137-145) mmol/L Potassium 5.0 (3.5-5.1) mmol/L Chloride 113 H (98-107) mmol/L Carbon Dioxide 22 (22-30) mmol/L BUN 30 H (7-17) mg/dL Creatinine 1.54 H (0.52-1.04) mg/dL Glucose 162 H (74-99) mg/dL Hemoglobin A1c 7.5 H (0.0-6.0) % Calcium 8.7 (8.4-10.2) mg/dL Triglycerides 274.00 H (0.00-149.00) mg/dL HDL Cholesterol 29.40 L (40.00-60.00) mg/dL Calcium panel 05/12/22 Range/Units 07:59 Calcium 8.7 (8.4-10.2) mg/dL Pituitary panel 05/12/22 Range/Units 07:59 Sodium 140 (137-145) mmol/L Potassium 5.0 (3.5-5.1) mmol/L Chloride 113 H (98-107) mmol/L Carbon Dioxide 22 (22-30) mmol/L BUN 30 H (7-17) mg/dL Creatinine 1.54 H (0.52-1.04) mg/dL Glucose 162 H (74-99) mg/dL Calcium 8.7 (8.4-10.2) mg/dL Adrenal panel 05/12/22 Range/Units 07:59 Sodium 140 (137-145) mmol/L Potassium 5.0 (3.5-5.1) mmol/L Chloride 113 H (98-107) mmol/L Carbon Dioxide 22 (22-30) mmol/L BUN 30 H (7-17) mg/dL Creatinine 1.54 H (0.52-1.04) mg/dL Glucose 162 H (74-99) mg/dL Calcium 8.7 (8.4-10.2) mg/dL - Imaging Chest x-ray: report reviewed, image reviewed EKG: image reviewed Additional studies: Heart catheterization films were reviewed with Dr. Javed Assessment and Plan Assessment: 1. Coronary artery disease with left main disease 2. History of coronary artery disease with myocardial infarction and previous stent in 2006 3. Hypertension 4. Hyperlipidemia, treated, triglycerides 274, cholesterol 131, LDL 47 5. Chronic kidney disease, baseline creatinine 1.7-2.2 per [facility] records in 2021 6. Qoh-eapbace-apwqchzls diabetes, hemoglobin A1c 7.5% 7. Gout 8. Osteoarthritis 9. Never smoker Plan: The patient was seen and examined at the bedside with Dr. Javed with family present. Chart/diagnostics were reviewed. Heart catheterization films were reviewed with Dr. Javed. The patient currently denies any chest pain or shortness of breath and appears to be in no acute distress. The usual perioperative course of open heart surgery was discussed with the patient and her family, risks benefits were reviewed, all questions were answered. Preoperative testing was initiated. Once testing has been completed we will calculate STS risk score and discuss our recommendations with the patient and her family. Recommend continue aspirin, statin, beta moni therapy. Medical management of other comorbidities per internal medicine, cardiology. Thank you Dr. Hamilton for this consult. We will follow along with you and make further recommendations as appropriate. I have personally seen and examined the patient, performed the documentation and the assessment and plan as written. Number of minutes spent on the visit: 30. LEFTY Whitney
[2022-05-12] MEDS: ASPIRIN 81 MG PO SCH (20:09)
[2022-05-12] MEDS ORDERED: amLODIPine 2.5 MG TAB PO SCH (21:00)
[2022-05-12 22:43] LABS: Appearance,Urine Cloudy (Clear); Bacteria,Urine Many /hpf; Bilirubin,Urine Negative (Negative); Blood,Urine Trace (Negative); Color,Urine Light Yellow; Glucose,Urine (UA) Negative (Negative); Ketones,Urine Negative (Negative); Leukocyte Esterase,Urine Large (Negative); Mucus,Urine Rare /hpf; Nitrite,Urine Positive (Negative); PH, Urine 5.5 (5.0-8.0); Protein,Urine Trace (Negative); RBC,Urine 45 /hpf (0-5); Specific Gravity,Urine 1.018 (1.001-1.035); Urobilinogen,Urine <2.0 mg/dL (<2.0); WBC,Urine >182 /hpf (0-5)
[2022-05-13] MEDS: NITROGLYCERIN SL TABS 0.4 MG TAB SUBLINGUAL PRN ×2 (01:05→05:55)
[2022-05-13] MEDS: SODIUM CHLORIDE 0.9% 1,000 ML IV SCH ×6 (04:09→22:00)
[2022-05-13] MEDS ORDERED: HEPARIN SODIUM,PORCINE 10,000 UNIT in SODIUM CHLORIDE 0.9% 1,000 ML IRRIGATION PRN (07:00)
[2022-05-13] MEDS ORDERED: HEPARIN SODIUM,PORCINE 2,500 UNIT in SODIUM CHLORIDE 0.9% 250 ML IRRIGATION PRN (07:00)
[2022-05-13] MEDS: FAMOTIDINE 20 MG TAB PO SCH (08:11)
[2022-05-13] MEDS: ATORVASTATIN 40 MG TAB PO SCH (08:12)
[2022-05-13] MEDS: atenoloL 50 MG TAB PO SCH (08:12)
[2022-05-13] MEDS: LORATADINE 10 MG TAB PO SCH (08:12)
[2022-05-13] MEDS: allopurinoL 100 MG TAB PO SCH ×2 (08:12→21:35)
[2022-05-13] MEDS: LOSARTAN 50 MG TAB PO SCH (08:13)
[2022-05-13] MEDS: glipiZIDE 5 MG TAB PO SCH (08:17)
[2022-05-13] MEDS: TROSPIUM CHLORIDE 20 MG TABLET PO SCH (08:17)
[2022-05-13] MEDS ORDERED: MD COMMUNICATION TO PHARMACY 1 EACH MISC PO ONE ×4 (08:23)
[2022-05-13] MEDS ORDERED: MUPIROCIN 2% OINT 22 GM TUBE NASAL SCH (09:00)
[2022-05-13 09:18] LABS: Basophils # (A) 0.04 X 10*3/uL (0.00-0.10); Basophils % (A) 0.5 %; Eosinophils # (A) 0.35 X 10*3/uL (0.04-0.35); Eosinophils % (A) 4.4 %; HCT 36.3 % (37.2-46.3); HGB 11.5 g/dL (12.0-15.0); Immature Grans, Automated 0.4 %; Lymphocytes # (A) 2.02 X 10*3/uL (0.90-5.00); Lymphocytes % (A) 25.4 %; MCH 27.6 pg (27.0-32.0); MCHC 31.7 g/dL (32.0-37.0); MCV 87.3 fL (80.0-97.0); Mean Platelet Volume 11.9 fL (9.5-12.2); Monocytes # (A) 0.57 X 10*3/uL (0.20-1.00); Monocytes % (A) 7.2 %; NRBC Per 100 WBC 0 /100 WBCS (0.0-0.0); Neutrophils # (A) 4.93 X 10*3/uL (1.80-7.70); Neutrophils % (A) 62.1 %; Platelet Count 149 X 10*3/uL (140-440); RBC 4.16 X 10*6/uL (4.10-5.20); RDW 14.9 % (11.5-14.5); WBC 7.94 X 10*3/uL (4.50-10.00)
[2022-05-13 09:33] LABS: African American GFR (CKD) 44.6 (60.0-200.0); Albumin 3.4 g/dL (3.8-4.9); Albumin/Globulin Ratio 1.79 (1.60-3.17); Anion Gap 9.1 mmol/L (10.00-18.00); BUN/Creat Ratio 16.54 Ratio (12.00-20.00); Blood Urea Nitrogen 21.5 mg/dL (9.0-27.0); Carbon Dioxide 20.9 mmol/L (20.0-27.5); Globulin 1.9 g/dL (1.6-3.3); Non-African American GFR(CKD) 38.4 (60.0-200.0); Potassium 4.6 mmol/L (3.5-5.5); Total Bilirubin 0.3 mg/dL (0.30-1.20); Total Protein 5.3 g/dL (6.2-8.2)
[2022-05-13 09:44] LABS: Partial Thromboplastin Time 24.7 sec (22.0-30.0); Prothrombin Time 10.3 sec (9.0-12.0)
[2022-05-13] MEDS: NITROGLYCERIN OINT 1 INCH/GM PACKET TOPICAL SCH ×3 (09:52→21:35)
--- NOTE | 2022-05-13 10:31 | CA ---
Transthoracic Echo Report Name: Moncia Bah Age: 82 Gender: F : 1940 Exam Date: 05/12/2022 13:22 Exam Location: [facility] Ht (in): 58 Wt (lb): 180 Ordering Physician: Charlene Garcia Attending/Referring Phys: [id number], Rad[facility] Vira Geronimo RDCS Procedure CPT: Indications: preop cardiac surgery Cardiac Hx: Technical Quality: Fair Contrast 1: Total Dose (mL): Contrast 2: Total Dose (mL): MEASUREMENTS (Male / Female) Normal Values 2D ECHO LV Diastolic Diameter PLAX 3.4 cm 4.2 - 5.9 / 3.9 - 5.3 cm LV Systolic Diameter PLAX 2.5 cm IVS Diastolic Thickness 1.3 cm 0.6 - 1.0 / 0.6 - 0.9 cm LVPW Diastolic Thickness 1.2 cm 0.6 - 1.0 / 0.6 - 0.9 cm LV Relative Wall Thickness 0.7 RV Internal Dim ED PLAX 2.4 cm LVOT Diameter 1.8 cm LA Volume 54.2 cm??? 18 - 58 / 22 - 52 cm??? M-MODE Aortic Root Diameter MM 2.5 cm LA Systolic Diameter MM 3.8 cm LA Ao Ratio MM 1.5 AV Cusp Separation MM 1.0 cm DOPPLER AV Peak Velocity 260.8 cm/s AV Peak Gradient 27.2 mmHg AV Mean Velocity 169.4 cm/s AV Mean Gradient 14.7 mmHg AV Velocity Time Integral 64.6 cm AI Peak Velocity 322.0 cm/s AI Peak Gradient 41.5 mmHg AI Pressure Half Time 836.0 ms LVOT Peak Velocity 84.5 cm/s LVOT Peak Gradient 2.9 mmHg LVOT Velocity Time Integral 23.4 cm LVOT Stroke Volume 57.7 cm??? LVOT Stroke Volume Index 33.1 ml/m??? LVOT Cardiac Index 1755.7 cm???/min???m??? AV Area Cont Eq vti 0.9 cm??? AV Area Cont Eq pk 0.8 cm??? MV Peak Velocity 136.1 cm/s MV Peak Gradient 7.4 mmHg MV Mean Velocity 73.2 cm/s MV Mean Gradient 2.6 mmHg MV Velocity Time Integral 40.4 cm MV Area PHT 3.3 cm??? MR Peak Velocity 428.2 cm/s MR Peak Gradient 73.3 mmHg Mitral E Point Velocity 105.6 cm/s Mitral A Point Velocity 136.4 cm/s Mitral E to A Ratio 0.8 MV Deceleration Time 222.7 ms TR Peak Velocity 225.0 cm/s TR Peak Gradient 20.2 mmHg Right Ventricular Systolic Press 25.2 mmHg FINDINGS Left Ventricle Mildly increased left ventricular wall thickness. Normal left ventricular systolic function with no obvious regional wall motion abnormalities. Left ventricular ejection fraction is estimated at 50-55 %. Right Ventricle Normal right ventricular size and function. Right ventricular systolic pressure within normal limits. Right Atrium Normal right atrial size. Left Atrium Mildly increased left atrial volume. 27 Mitral Valve Structurally normal mitral valve. Mitral valve thickened. Mild mitral annular calcification. Moderate mitral regurgitation. Centrally directed mitral regurgitation jet. Aortic Valve Trileaflet aortic valve. Mild aortic stenosis with a peak gradient of 27 mmHg and a mean gradient of 15 mmHg. Mild aortic regurgitation. Tricuspid Valve Structurally normal tricuspid valve. Mild tricuspid regurgitation. Pulmonic Valve Trace pulmonic regurgitation. Pericardium No pericardial effusion. Aorta Normal size aortic root and proximal ascending aorta. CONCLUSIONS Mild LVH with preserved systolic function No wall motion abnormalities Thickened aortic valve with very mild stenosis Mitral regurgitation mild to moderate Previewed by: Dr. Jim Hamilton MD (Electronically Signed) Final Date: 13 May 2022 10:30
--- NOTE | 2022-05-13 10:34 | P.PN ---
Subjective Progress Note Date: 05/13/22 History of present illness: This is an 82-year-old female patient with past medical history of coronary ar evie disease with cardiac catheterization and stent, diabetes, osteoarthritis. Patient follows with Dr. Beatty in the office and is scheduled for a stress test on 05/26. Patient states that she has had chest pain in the mid sternal lower sternal area that happens mostly when she is sleeping and wakes her up. It lasts for about 5-10 minutes and sometimes she takes a nitroglycerin which takes it away. Sometimes the pain will go away on its own without nitroglycerin. This going on for the past couple of months. Patient denies having shortness of breath or dizziness. She denies having any abdominal pain. EKG sinus rhythm with no acute ST changes 2 CBC unremarkable. BUN 40 creatinine 2.1. Troponin negative 2 draws. Triglycerides 290, cholesterol 153, LDL 61, HDL 33. ProBNP 272. Lipase 394. TSH 4.62 05/13 Patient underwent dobutamine stress echocardiogram on 05/11 and developed chest discomfort and ST depression T-wave inversion in aVL, V2 which gradually resolved with IV beta moni. Normal LV systolic function. She subsequently underwent left heart catheterization with Dr. Beatty that revealed severe triple- vessel coronary artery disease with critical lesion in the midportion of the RCA distended with intermediate in-stent restenosis, distally another lesion appears to be in the range of 50% before it bifurcates into PDA and PLV branches. Both appear to have mild to moderate diffuse disease. Critical lesion of 70-80% in the left main. Left circumflex is involved with lesion from the distal left main and has sluggish flow. Proximal LAD has critical lesion in the range of 80-90%. This gives rise into a large diagonal branch which appears to have an ostial lesion in the range of 60%. Recommendations are to be evaluated by cardiothoracic surgery for CABG. Patient is seen today on the observation unit. She is still having episodes of chest pain and Nitropaste will be added. Anticipate that she will be seen by the cardiothoracic surgeon today. Repeat c lakshmiine 1.3. Carotid ultrasound revealed no significant stenosis in either internal carotid artery. 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 Physical examination: Gen: This is a 82-year-old female. She is resting in a chair in the ER cubicle and appears to be comfortable VS: Reviewed HEENT: Head is atraumatic, normocephalic. Pupils equal, round. Sclerae is anicteric. NECK: Supple. No JVD. No lymphadenopathy. No thyromegaly. LUNGS: Clear to auscultation. No wheezes or rhonchi. No intercostal retractions. HEART: Regular rate and rhythm. No murmur. ABDOMEN: Soft. Bowel sounds are present. No masses. No tenderness. EXTREMITIES: 1+ pedal edema. No calf tenderness. NEUROLOGICAL: Patient is awake, alert and oriented x3. Cranial nerves 2 through 12 are grossly intact. Assessment: Chest pain, acute coronary syndrome has been ruled out Triple-vessel coronary artery disease History of coronary artery disease Diabetes mellitus type 2 Plan: Cardiothoracic surgery consult Continue patient on aspirin 81 mg daily, atenolol 50 mg daily, atorvastatin 40 mg daily Start patient on nitroglycerin ointment 1 inch 3 times a day Further recommendations to follow based upon clinical course Thank you kindly for this consultation. Nurse practitioner note has been reviewed, I agree with documented findings and plan of care. Patient was seen and examined. Objective - Vital Signs Vital signs: Vital Signs Temp 97.5 F L 05/13/22 07:00 Pulse 60 05/13/22 07:00 Resp 16 05/13/22 07:00 BP 117/64 05/13/22 07:00 Pulse Ox 98 05/13/22 07:00 FiO2 Intake & Output 05/12/22 05/13/22 05/13/22 18:59 06:59 18:59 Intake Total 357 Balance 357 Intake: Oral 357 Other: Voiding Method Toilet Toilet # Voids 3 2 - Labs CBC & Chem 7: 05/13/22 05:37 05/13/22 05:37 Labs: Abnormal Lab Results - Last 24 Hours (Table) 05/12/22 05/12/22 Range/Units 07:59 22:00 Chloride 113 H (98-107) mmol/L BUN 30 H (7-17) mg/dL Creatinine 1.54 H (0.52-1.04) mg/dL Glucose 162 H (74-99) mg/dL Urine Appearance Cloudy H (Clear) Urine Protein Trace H (Negative) Urine Blood Trace H (Negative) Urine Nitrite Positive H (Negative) Ur Leukocyte Esterase Large H (Negative) Urine RBC 45 H (0-5) /hpf Urine WBC >182 H (0-5) /hpf Urine WBC Clumps Few H (None) /hpf Urine Bacteria Many H (None) /hpf Urine Mucus Rare H (None) /hpf Microbiology - Last 24 Hours (Table) 05/12/22 17:43 Nasal Screen MRSA/MSSA - Preliminary Nasal Swab
--- NOTE | 2022-05-13 14:27 | P.PN ---
Subjective Progress Note Date: 05/13/22 Principal diagnosis: This is an 82-year-old female who follows on an outpatient basis with Dr. Law for primary care and Dr. Beatty for cardiology. She has a previous medical hist ory of coronary artery disease with myocardial infarction and previous stent in 2006, hypertension, hyperlipidemia, chronic kidney disease, vdy-zspcqtn-fvfgstxdm diabetes, gout, osteoarthritis, and never smoker. Apparently she has been experiencing intermittent chest pain without shortness of breath for several months. This is usually relieved with sublingual nitro. She also endorses lower extremity edema. Recently she has been experiencing more frequent episodes of chest pain and was scheduled to undergo stress testing with cardiology on May 26, however her symptoms continued to increase in frequency and she reported to [facility] emergency room yesterday for evaluation and treatment. Troponins were drawn and were negative 3, no ST elevation or depression on EKG. She underwent dobutamine stress testing which was stopped early due to chest pain. She was recommended to undergo heart catheterization which was completed today and which demonstrated critical stenosis in the mid RCA with re-in-stent stenosis, distal left main stenosis 70- 80%, proximal LAD stenosis 80-90% with 60% diagonal stenosis, and left ventricular end diastolic pressure 20 mmHg. Due to these findings consultation was placed to Dr. Javed from cardiothoracic surgery for surgical revasculariza tion recommendations. The patient was seen and examined in follow-up today at her bedside on the c ardiac observation unit. Currently she is lying in bed, is awake, alert, oriented 3 and is in no acute apparent distress. She reports she had some episodes of chest pain and shortness of breath throughout the night which was relieved with nitroglycerin sublingual. Currently she denies any complaints of pain or shortness of breath at this time. Oxygen saturations are 98% on room air and she is achieving 1000 mL on her incentive spirometry with encouragement. A bedside FEV1 was completed yesterday as part of her preoperative workup which showed a predicted value of 96%. Also as part of her preoperative workup a carotid duplex was completed which showed no hemodynamically significant mitra nosis in either internal carotid artery. The patient underwent a transthoracic 2-D echo cardiogram which demonstrated a normal left ventricular systolic function with no obvious regional wall motion abnormalities with an ejection fraction estimated at 50-55%, moderate mitral valve regurgitation with a centrally directed mitral regurgitation, a trileaflet aortic valve with mild aortic valve stenosis with a peak gradient of 27 mmHg and a mean gradient of 15 mmHg, mild aortic valve regurgitation, mild tricuspid valve regurgitation and trace pulmonic valve regurgitation. It also showed no pericardial effusion and a normal size aortic root and proximal ascending aorta. A 5 m walk test was completed with the patient by body builder, time 1:7.22 seconds, time 2: 6.42 seconds, time 3: 7.06 seconds. Urinalysis from 05/12/2022 showed cloudy appearance, trace protein, trace blood, positive nitrate, large leukocyte Estrace, urine WBCs greater than 182, urine bacteria many. Urine culture results remains pending. Laboratory results this morning show a WBC count of 7.94, hemoglobin 11.5, hematocrit 36.3, platelets 149, sodium 140, potassium 4.6, BUN 21.5, and creatinine 1.3. She has been afebrile the last 24 hours. Objective - Vital Signs Vital signs: Vital Signs Temp 97.5 F L 05/13/22 07:00 Pulse 60 05/13/22 07:00 Resp 16 05/13/22 08:17 BP 117/64 05/13/22 07:00 Pulse Ox 98 05/13/22 07:00 FiO2 Intake & Output 05/12/22 05/13/22 05/13/22 18:59 06:59 18:59 Intake Total 357 118 Balance 357 118 Weight 85.5 kg Intake: Oral 357 118 Other: Voiding Method Toilet Toilet Toilet # Voids 3 2 - Exam CONSTITUTIONAL: Appears comfortable, cooperative, no apparent acute distress. Lying in bed on the sixth for cardiac observation unit. HEENT: Neck is supple, no JVD, no lymphadenopathy. RESPIRATORY: Lungs sounds essentially clear throughout. No wheezes, rhonchi or crackles. Respirations are symmetrical and nonlabored. Currently on room air with oxygen saturations 98%. Able to achieve 1000 mL on their incentive spirometry. Strong cough. CARDIOVASCULAR: Regular rhythm and rate. S1 and S2 present, negative for S3, gallop or murmur. GENITOURINARY: Continues to void. INTEGUMENTARY: Skin is warm and dry with no evidence of clubbing or cyanosis. NEUROLOGIC: Cranial nerves II through XII intact. No focal deficits. No obvious motor or sensory deficits, speech is normal. MUSKULOSKELETAL: Able to move all extremities, strength equal bilaterally, generalized weakness. PSYCHIATRIC: Alert and oriented to person place and time, appropriate affect, intact judgment and insight. - Allied health notes Allied health notes reviewed: nursing - Labs CBC & Chem 7: 05/13/22 05:37 05/13/22 05:37 Labs: Abnormal Lab Results - Last 24 Hours (Table) 05/12/22 05/13/22 05/13/22 Range/Units 22:00 05:37 05:37 Hgb 11.5 L (12.0-15.0) g/dL Hct 36.3 L (37.2-46.3) % MCHC 31.7 L (32.0-37.0) g/dL RDW 14.9 H (11.5-14.5) % Chloride 110 H (96-109) mmol/L Anion Gap 9.10 L (10.00-18.00) mmol/L Est GFR (CKD-EPI)AfAm 44.6 L (60.0-200.0) Est GFR (CKD-EPI)NonAf 38.4 L (60.0-200.0) Glucose 150 H (70-110) mg/dL Total Protein 5.3 L (6.2-8.2) g/dL Albumin 3.4 L (3.8-4.9) g/dL Urine Appearance Cloudy H (Clear) Urine Protein Trace H (Negative) Urine Blood Trace H (Negative) Urine Nitrite Positive H (Negative) Ur Leukocyte Esterase Large H (Negative) Urine RBC 45 H (0-5) /hpf Urine WBC >182 H (0-5) /hpf Urine WBC Clumps Few H (None) /hpf Urine Bacteria Many H (None) /hpf Urine Mucus Rare H (None) /hpf Crossmatch 05/13/22 Range/Units 09:12 Hgb (12.0-15.0) g/dL Hct (37.2-46.3) % MCHC (32.0-37.0) g/dL RDW (11.5-14.5) % Chloride (96-109) mmol/L Anion Gap (10.00-18.00) mmol/L Est GFR (CKD-EPI)AfAm (60.0-200.0) Est GFR (CKD-EPI)NonAf (60.0-200.0) Glucose (70-110) mg/dL Total Protein (6.2-8.2) g/dL Albumin (3.8-4.9) g/dL Urine Appearance (Clear) Urine Protein (Negative) Urine Blood (Negative) Urine Nitrite (Negative) Ur Leukocyte Esterase (Negative) Urine RBC (0-5) /hpf Urine WBC (0-5) /hpf Urine WBC Clumps (None) /hpf Urine Bacteria (None) /hpf Urine Mucus (None) /hpf Crossmatch See Detail Microbiology - Last 24 Hours (Table) 05/12/22 22:00 Urine Culture - Preliminary Urine,Voided 05/12/22 17:43 Nasal Screen MRSA/MSSA - Preliminary Nasal Swab - Imaging and Cardiology Transthoracic 2-D echocardiogram reviewed by Dr. Avi Stoddard Assessment and Plan Assessment: 1. Coronary artery disease with left main disease 2. History of coronary artery disease with myocardial infarction and previous stent in 2006 3. Hypertension 4. Hyperlipidemia, treated, triglycerides 274, cholesterol 131, LDL 47 5. Chronic kidney disease, baseline creatinine 1.7-2.2 per [facility] records in 2021 6. Wnq-mjhrqlf-czcbvntwv diabetes, hemoglobin A1c 7.5% 7. Gout 8. Osteoarthritis 9. Never smoker Plan: 1. Continue to optimize medical management with aspirin, statin and beta moni. 2. Encourage use of incentive spirometry 10 times every hour while awake. 3. 5 m walk test was completed with patient which showed time 1: 7.22 seconds, time 2: 6.42 seconds, time 3: 7.06 seconds. 4. An STS risk score was calculated and discussed with the patient. 5. Cardiology added nitroglycerin ointment 1 inch 3 times daily. 6. Medical management and other comorbidities per primary care and cardiology services. 7. Preoperative testing and preoperative teaching in progress. 8. More recommendations to follow based on patient's clinical course. ADDENDUM: 82-year-old obese female presents with anginal symptomatology. She was found to have left main, LAD and severe right coronary artery disease. The circumflex patient appears to be chronically occluded. Echocardiography demonstrates moderate mitral regurgitation as well as mild aortic stenosis with heavily sclerotic aortic valve and mild aortic insufficiency. Ventricular func tion is well-preserved. Patient is in sinus rhythm. We were asked to consult for possible CABG. Patient's calculated STS risk is 5% mortality with 20% morbidity/mortality. This is probably an underestimate as the patient is extremely frail and also very inactive with poor walk test. It is my feeling that she is best served by percutaneous intervention. This was discussed with Dr. Beatty. Plan will be to proceed with percutaneous revascularization of the right coronary artery followed by apical management. If she has continued severe anginal symptomatology consideration could be given to left main LAD stenting. Time with Patient: Greater than 30
[2022-05-13] MEDS ORDERED: HEPARIN SODIUM 1,000 UN/ML (10ML VL) IV PRN (15:42)
[2022-05-13] MEDS ORDERED: HEPARIN SOD,PORK IN 0.45% NACL 25,000 UNIT in 0.45% NACL 1 250ML.BAG IV SCH (15:45)
--- NOTE | 2022-05-13 16:09 | P.PN ---
Subjective Progress Note Date: 05/13/22 Moinca Bah, is an 82-year-old female patient of Dr. Law who presented to [facility] emergency room with a chief complaint of chest pain. Patient states that she started having chest pain about 3 weeks ago she was seen by her primary care physician who made her an appointment with cardiology, sometimes in the next 2 weeks, however patient continued to have more episodes of chest pain and she decided to come to emergency room for further evaluation. Patient describes episodes of chest pain as a pressure sensation in the lower sternal area that lasts 5-7 minutes each time sometimes after activities but occasionally at rest. She denies any radiation of the pain to the jaw or to the back or to the left arm she denies any nausea or vomiting shortness of breath or diaphoresis was chest pain. She was evaluated in the emergency room vital examination on presentation revealed a temperature of 97.4 pulse 61 respiration 16 blood pressure 135/64 pulse ox 98% on room air Laboratory data revealed a white blood count of 9.5 hemoglobin 13.5 platelet count 154 BUN 40 creatinine 2.10 lipase slightly elevated at 394 troponin level was negative Testing in the emergency room revealed EKG done in the emergency room revealed sinus rhythm with first-degree AV block and left anterior fascicular block. Chest x-ray done in the emergency room revealed normal chest no change Patient was admitted to medical floor for further evaluation and treatment Past medical history is significant for history of hypertension, history of chronic kidney disease, history of coronary artery disease with history of 2 stent placement 15 years ago and 17 years ago, and history of gout, history of hyperlipidemia, and history of joy-ykxmfeq-thyrzawum diabetes mellitus. On 05/12/2022 patient is alert and oriented 3. Today per cardiology for cardiac catheterization. Creatinine 1.5 for about 30. Patient will need gentle hydration post procedure. At this time patient denies chest pain or shortness of breath. Patient denies nausea vomiting or diarrhea. Patient denies any any urinary burning or frequency. Current temp 98.1, heart rate 60, respiratory rate 16, blood pressure 118/71 with a pulse ox 98% on room air On 05/13/2022 patient was seen and examined on the medical floor she is alert and oriented 3 in no apparent distress no fever or chills no headache or dizziness no chest pain at this time no shortness of breath no cough no nausea or vomiting no abdominal pain no diarrhea and no urinary symptoms, patient was evaluated by Dr. Delvalle, and we are awaiting decision whether her risk calculation will allow for her to have coronary artery bypass graft surgery. Objective - Vital Signs Vital signs: Vital Signs Temp 97.5 F L 05/13/22 07:00 Pulse 60 05/13/22 07:00 Resp 16 05/13/22 07:00 BP 117/64 05/13/22 07:00 Pulse Ox 98 05/13/22 07:00 FiO2 Intake & Output 05/12/22 05/13/22 05/13/22 18:59 06:59 18:59 Intake Total 357 Balance 357 Intake: Oral 357 Other: Voiding Method Toilet Toilet # Voids 3 2 - Exam In general patient is alert and oriented x 3 in no distress HEENT head normocephalic and atraumatic Neck is supple no JVD no goiter no lymphadenopathy no carotid bruit Chest examination is clear to auscultation no crackles no wheezing Cardiac exam reveals regular heart sounds S1 and S2 no gallops no murmurs Abdomen is soft nontender no organomegaly with normal bowel sounds Extremity exam reveals 2+ edema no cyanosis or clubbing Neurological examination reveals no gross focal deficits - Labs CBC & Chem 7: 05/13/22 05:37 05/13/22 05:37 Labs: Abnormal Lab Results - Last 24 Hours (Table) 05/12/22 Range/Units 22:00 Urine Appearance Cloudy H (Clear) Urine Protein Trace H (Negative) Urine Blood Trace H (Negative) Urine Nitrite Positive H (Negative) Ur Leukocyte Esterase Large H (Negative) Urine RBC 45 H (0-5) /hpf Urine WBC >182 H (0-5) /hpf Urine WBC Clumps Few H (None) /hpf Urine Bacteria Many H (None) /hpf Urine Mucus Rare H (None) /hpf Microbiology - Last 24 Hours (Table) 05/12/22 17:43 Nasal Screen MRSA/MSSA - Preliminary Nasal Swab Assessment and Plan Plan: Episodes of chest pain, in an 82 -year-old female with multiple cardiac risk factors including previous history of coronary artery disease and stent placement in the past Underlying history of chronic kidney disease creatinine 2.1 Underlying history of gout Underlying history of hypertension Underlying history of hyperlipidemia Underlying history of tui-trxryns-ckshcgydz diabetes mellitus Underlying history of osteoarthritis with previous history of joint replacement surgery At this time patient was seen and examined Home medications reviewed and reordered Cardiac catheterization planned for 05/12/2022
[2022-05-13] MEDS: amLODIPine 2.5 MG TAB PO SCH (21:35)
[2022-05-13] MEDS: ASPIRIN 81 MG PO SCH (21:35)
[2022-05-14] MEDS: SODIUM CHLORIDE 0.9% 1,000 ML IV SCH ×5 (00:25→15:27)
[2022-05-14] MEDS: NITROGLYCERIN SL TABS 0.4 MG TAB SUBLINGUAL PRN ×2 (01:00→07:59)
[2022-05-14] MEDS ORDERED: ATORVASTATIN 10 MG TAB PO ONE (05:00)
[2022-05-14] MEDS ORDERED: HEPARIN SODIUM 1,000 UN/ML (10ML VL) IV ONE (05:00)
[2022-05-14] MEDS ORDERED: CLEVIDIPINE BUTYRATE 25 MG in EMPTY BAG 1 BAG IV SCH (05:00)
[2022-05-14] MEDS ORDERED: PHENYLEPHRINE 40 MG in SODIUM CHLORIDE 0.9% 250 ML IV ONE (05:00)
[2022-05-14] MEDS ORDERED: NOREPINEPHRINE 4 MG in SODIUM CHLORIDE 0.9% 250 ML IV SCH (05:00)
[2022-05-14] MEDS ORDERED: PROTAMINE SULFATE 250 MG in EMPTY BAG 1 BAG IV ONE (05:00)
[2022-05-14] MEDS ORDERED: MAGNESIUM SULFATE 16.24 MEQ in EMPTY SYRINGE 1 SYR IV ONE (05:00)
[2022-05-14] MEDS ORDERED: NITROGLYCERIN-D5W PMX 25 MG/250 ML BTL IV ONE (05:00)
[2022-05-14] MEDS ORDERED: MANNITOL 25% 12.5 GM/50 ML VIAL IV ONE ×2 (05:00)
[2022-05-14] MEDS ORDERED: NITROGLYCERIN-D5W PMX 50 MG in DEXTROSE/WATER 1 250ML.BAG IV SCH (05:00)
[2022-05-14] MEDS ORDERED: ALBUMIN HUMAN 5% 500 ML in EMPTY BAG 1 BAG IVPB ONE ×6 (05:00)
[2022-05-14] MEDS ORDERED: HEPARIN SODIUM,PORCINE 5,000 UNIT in SODIUM CHLORIDE 0.9% 500 ML 500 ML IV ONE (05:00)
[2022-05-14] MEDS ORDERED: CALCIUM CHLORIDE 100 MG/ML 10 ML SYRINGE IVP ONE (05:00)
[2022-05-14] MEDS ORDERED: SODIUM BICARB 8.4% 50 ML SYR (1 MEQ/ML) IV ONE (05:00)
[2022-05-14] MEDS ORDERED: ALBUMIN HUMAN 25% 50 ML in EMPTY BAG 1 BAG IVPB ONE (05:00)
[2022-05-14] MEDS ORDERED: ASPIRIN 325 MG TAB PO ONE (05:00)
[2022-05-14] MEDS ORDERED: PROTAMINE SULFATE 10 MG/ML 25 ML VIAL IV ONE (05:00)
[2022-05-14] MEDS ORDERED: ceFAZolin 1,000 MG in SODIUM CHLORIDE 0.9% IRRIGATIO 1,000 ML IRRIGATION ONE (05:00)
[2022-05-14] MEDS ORDERED: METOPROLOL TARTRATE 12.5 MG TAB PO ONE (05:00)
[2022-05-14] MEDS ORDERED: CHLORHEXIDINE GLUCONATE 15 ML CUP MUCOUS MEM ONE (05:00)
[2022-05-14] MEDS ORDERED: TRANEXAMIC ACID 2,000 MG in SODIUM CHLORIDE 0.9% 80 ML IV ONE (05:00)
[2022-05-14] MEDS ORDERED: PAPAVERINE 360 MG in SODIUM CHLORIDE 0.9% 90 ML IV ONE (05:00)
[2022-05-14] MEDS ORDERED: INSULIN REGULAR 100 UNIT in SODIUM CHLORIDE 0.9% 100 ML IV SCH (06:00)
[2022-05-14] MEDS ORDERED: PHENYLEPHRINE 10 MG/ML VIAL IV ONE (06:00)
[2022-05-14] MEDS ORDERED: CARDIOPLEGIC SOLN (K+ 16 MEQ/L 1,000 ML with SOD BICARB SYR 8.4% (1 MEQ/ML) 20 ML, LIDO... PERFUSION NR ×3 (06:00)
[2022-05-14] MEDS: glipiZIDE 5 MG TAB PO SCH (07:07)
[2022-05-14] MEDS: NITROGLYCERIN OINT 1 INCH/GM PACKET TOPICAL SCH (08:39)
[2022-05-14] MEDS: allopurinoL 100 MG TAB PO SCH ×2 (08:42→21:33)
[2022-05-14] MEDS: ATORVASTATIN 40 MG TAB PO SCH (08:42)
[2022-05-14] MEDS: FAMOTIDINE 20 MG TAB PO SCH (08:42)
[2022-05-14] MEDS: LOSARTAN 50 MG TAB PO SCH (08:42)
[2022-05-14] MEDS: atenoloL 50 MG TAB PO SCH (08:42)
[2022-05-14] MEDS: TROSPIUM CHLORIDE 20 MG TABLET PO SCH (08:43)
[2022-05-14] MEDS: LORATADINE 10 MG TAB PO SCH (08:43)
[2022-05-14 08:53] LABS: Basophils # (A) 0.05 X 10*3/uL (0.00-0.10); Basophils % (A) 0.6 %; Eosinophils # (A) 0.31 X 10*3/uL (0.04-0.35); Eosinophils % (A) 3.8 %; HCT 35.3 % (37.2-46.3); Immature Grans, Automated 0.5 %; Lymphocytes # (A) 2.22 X 10*3/uL (0.90-5.00); Lymphocytes % (A) 26.9 %; MCH 27.2 pg (27.0-32.0); MCHC 31.2 g/dL (32.0-37.0); MCV 87.4 fL (80.0-97.0); Mean Platelet Volume 11.9 fL (9.5-12.2); Monocytes # (A) 0.57 X 10*3/uL (0.20-1.00); Monocytes % (A) 6.9 %; NRBC Per 100 WBC 0 /100 WBCS (0.0-0.0); Neutrophils # (A) 5.06 X 10*3/uL (1.80-7.70); Neutrophils % (A) 61.3 %; Platelet Count 142 X 10*3/uL (140-440); RBC 4.04 X 10*6/uL (4.10-5.20); WBC 8.25 X 10*3/uL (4.50-10.00)
[2022-05-14 09:43] LABS: Prothrombin Time 11.3 sec (9.9-11.9)
--- NOTE | 2022-05-14 09:51 | P.PN ---
Subjective Progress Note Date: 05/14/22 History of present illness: This is an 82-year-old female patient with past medical history of coronary ar evie disease with cardiac catheterization and stent, diabetes, osteoarthritis. Patient follows with Dr. Beatty in the office and is scheduled for a stress test on 05/26. Patient states that she has had chest pain in the mid sternal lower sternal area that happens mostly when she is sleeping and wakes her up. It lasts for about 5-10 minutes and sometimes she takes a nitroglycerin which takes it away. Sometimes the pain will go away on its own without nitroglycerin. This going on for the past couple of months. Patient denies having shortness of breath or dizziness. She denies having any abdominal pain. EKG sinus rhythm with no acute ST changes 2 CBC unremarkable. BUN 40 creatinine 2.1. Troponin negative 2 draws. Triglycerides 290, cholesterol 153, LDL 61, HDL 33. ProBNP 272. Lipase 394. TSH 4.62 05/13 Patient underwent dobutamine stress echocardiogram on 05/11 and developed chest discomfort and ST depression T-wave inversion in aVL, V2 which gradually resolved with IV beta moni. Normal LV systolic function. She subsequently underwent left heart catheterization with Dr. Beatty that revealed severe triple- vessel coronary artery disease with critical lesion in the midportion of the RCA distended with intermediate in-stent restenosis, distally another lesion appears to be in the range of 50% before it bifurcates into PDA and PLV branches. Both appear to have mild to moderate diffuse disease. Critical lesion of 70-80% in the left main. Left circumflex is involved with lesion from the distal left main and has sluggish flow. Proximal LAD has critical lesion in the range of 80-90%. This gives rise into a large diagonal branch which appears to have an ostial lesion in the range of 60%. Recommendations are to be evaluated by cardiothoracic surgery for CABG. Patient is seen today on the observation unit. She is still having episodes of chest pain and Nitropaste will be added. Anticipate that she will be seen by the cardiothoracic surgeon today. Repeat c lakshmiine 1.3. Carotid ultrasound revealed no significant stenosis in either internal carotid artery. ekg monitor sinus rhythm with first-degree block. 05/14 Patient has been evaluated by cardiothoracic surgery and deemed to high risk for CABG. Patient will be undergoing a staged stenting starting today with probable her procedure on Tuesday as well. Patient states that she continued to have chest pain all night despite use of nitroglycerin and heparin drip. Vital signs reviewed Physical examination: Gen: This is a 82-year-old female. She is resting on the edge of the bed and appears to be comfortable VS: Reviewed HEENT: Head is atraumatic, normocephalic. Pupils equal, round. Sclerae is anicteric. NECK: Supple. No JVD. No lymphadenopathy. No thyromegaly. LUNGS: Clear to auscultation. No wheezes or rhonchi. No intercostal retractions. HEART: Regular rate and rhythm. No murmur. ABDOMEN: Soft. Bowel sounds are present. No masses. No tenderness. EXTREMITIES: 1+ pedal edema. No calf tenderness. NEUROLOGICAL: Patient is awake, alert and oriented x3. Cranial nerves 2 through 12 are grossly intact. Assessment: Chest pain secondary to unstable angina, acute coronary syndrome has been ruled out. Patient continues to have episodes of chest pain despite use of heparin and nitroglycerin. Triple-vessel coronary artery disease History of coronary artery disease Diabetes mellitus type 2 Plan: Cardiothoracic surgery consult appreciated Patient has been started on heparin drip Staged stenting scheduled starting today with Dr. Beatty Continue patient on aspirin 81 mg daily, atenolol 50 mg daily, atorvastatin 40 mg daily Continue patient on nitroglycerin ointment 1 inch 3 times a day Further recommendations to follow based upon clinical course Thank you kindly for this consultation. Nurse practitioner note has been reviewed, I agree with documented findings and plan of care. Patient was seen and examined. Objective - Vital Signs Vital signs: Vital Signs Temp 98.1 F 05/14/22 02:54 Pulse 66 05/14/22 02:54 Resp 18 05/14/22 02:54 BP 134/63 05/14/22 02:54 Pulse Ox 96 05/14/22 07:27 FiO2 Intake & Output 05/13/22 05/14/22 05/14/22 18:59 06:59 18:59 Intake Total 356 81.866 Balance 356 81.866 Weight 85.5 kg Intake: Intake, IV Titration 81.866 Amount Heparin Sod,Pork in 0.45% 81.866 NaCl 25,000 unit In 0.45 % NaCl 1 250ml.bag @ 11.7 UNITS/KG/HR 10.004 mls/ hr IV .Q24H [facility] Rx#: [id number] Oral 356 Other: Voiding Method Toilet Toilet # Voids 1 1 - Labs CBC & Chem 7: 05/14/22 05:25 05/13/22 05:37 Labs: Abnormal Lab Results - Last 24 Hours (Table) 05/13/22 05/13/22 05/13/22 Range/Units 05:37 05:37 09:12 Hgb 11.5 L (12.0-15.0) g/dL Hct 36.3 L (37.2-46.3) % MCHC 31.7 L (32.0-37.0) g/dL RDW 14.9 H (11.5-14.5) % APTT (22.0-30.0) sec Chloride 110 H (96-109) mmol/L Anion Gap 9.10 L (10.00-18.00) mmol/L Est GFR (CKD-EPI)AfAm 44.6 L (60.0-200.0) Est GFR (CKD-EPI)NonAf 38.4 L (60.0-200.0) Glucose 150 H (70-110) mg/dL Total Protein 5.3 L (6.2-8.2) g/dL Albumin 3.4 L (3.8-4.9) g/dL Crossmatch See Detail 05/13/22 Range/Units 23:15 Hgb (12.0-15.0) g/dL Hct (37.2-46.3) % MCHC (32.0-37.0) g/dL RDW (11.5-14.5) % APTT 54.7 H (22.0-30.0) sec Chloride (96-109) mmol/L Anion Gap (10.00-18.00) mmol/L Est GFR (CKD-EPI)AfAm (60.0-200.0) Est GFR (CKD-EPI)NonAf (60.0-200.0) Glucose (70-110) mg/dL Total Protein (6.2-8.2) g/dL Albumin (3.8-4.9) g/dL Crossmatch Microbiology - Last 24 Hours (Table) 05/12/22 17:43 Nasal Screen MRSA/MSSA - Final Nasal Swab 05/12/22 22:00 Urine Culture - Preliminary Urine,Voided
--- NOTE | 2022-05-14 10:00 | P.PN ---
Subjective Progress Note Date: 05/14/22 Monica Bah, is an 82-year-old female patient of Dr. Law who presented to [facility] emergency room with a chief complaint of chest pain. Patient states that she started having chest pain about 3 weeks ago she was seen by her primary care physician who made her an appointment with cardiology, sometimes in the next 2 weeks, however patient continued to have more episodes of chest pain and she decided to come to emergency room for further evaluation. Patient describes episodes of chest pain as a pressure sensation in the lower sternal area that lasts 5-7 minutes each time sometimes after activities but occasionally at rest. She denies any radiation of the pain to the jaw or to the back or to the left arm she denies any nausea or vomiting shortness of breath or diaphoresis was chest pain. She was evaluated in the emergency room vital examination on presentation revealed a temperature of 97.4 pulse 61 respiration 16 blood pressure 135/64 pulse ox 98% on room air Laboratory data revealed a white blood count of 9.5 hemoglobin 13.5 platelet count 154 BUN 40 creatinine 2.10 lipase slightly elevated at 394 troponin level was negative Testing in the emergency room revealed EKG done in the emergency room revealed sinus rhythm with first-degree AV block and left anterior fascicular block. Chest x-ray done in the emergency room revealed normal chest no change Patient was admitted to medical floor for further evaluation and treatment Past medical history is significant for history of hypertension, history of chronic kidney disease, history of coronary artery disease with history of 2 stent placement 15 years ago and 17 years ago, and history of gout, history of hyperlipidemia, and history of xai-wlfwljn-meyaiidkm diabetes mellitus. On 05/12/2022 patient is alert and oriented 3. Today per cardiology for cardiac catheterization. Creatinine 1.5 for about 30. Patient will need gentle hydration post procedure. At this time patient denies chest pain or shortness of breath. Patient denies nausea vomiting or diarrhea. Patient denies any any urinary burning or frequency. Current temp 98.1, heart rate 60, respiratory rate 16, blood pressure 118/71 with a pulse ox 98% on room air On 05/13/2022 patient was seen and examined on the medical floor she is alert and oriented 3 in no apparent distress no fever or chills no headache or dizziness no chest pain at this time no shortness of breath no cough no nausea or vomiting no abdominal pain no diarrhea and no urinary symptoms, patient was evaluated by Dr. Delvalle, and we are awaiting decision whether her risk calculation will allow for her to have coronary artery bypass graft surgery. 05/14/2022 patient is alert and oriented 3. From further evaluation from basilar surgery and cardiology services plan at this time is for cardiac catheterization with intervention due to increased risk associated with coronary artery bypass graft surgery. Patient reports she is still having ongoing intermittent chest pain. This time patient denies shortness breath. Patient denies nausea vomiting or diarrhea. Patient denies any urinary burning or frequency. Repeat labs ordered. Patient remains on IV heparin at this time. Cardiac catheterization today Objective - Vital Signs Vital signs: Vital Signs Temp 97.7 F 05/14/22 07:45 Pulse 75 05/14/22 07:45 Resp 16 05/14/22 07:45 BP 151/79 05/14/22 07:45 Pulse Ox 94 L 05/14/22 07:45 FiO2 Intake & Output 05/13/22 05/14/22 05/14/22 18:59 06:59 18:59 Intake Total 356 81.866 84.701 Balance 356 81.866 84.701 Weight 85.5 kg Intake: Intake, IV Titration 81.866 84.701 Amount Heparin Sod,Pork in 0.45% 81.866 84.701 NaCl 25,000 unit In 0.45 % NaCl 1 250ml.bag @ 11.7 UNITS/KG/HR 10.004 mls/ hr IV .Q24H [facility] Rx#: [id number] Oral 356 Other: Voiding Method Toilet Toilet # Voids 1 1 - Exam In general patient is alert and oriented x 3 in no distress HEENT head normocephalic and atraumatic Neck is supple no JVD no goiter no lymphadenopathy no carotid bruit Chest examination is clear to auscultation no crackles no wheezing Cardiac exam reveals regular heart sounds S1 and S2 no gallops no murmurs Abdomen is soft nontender no organomegaly with normal bowel sounds Extremity exam reveals 2+ edema no cyanosis or clubbing Neurological examination reveals no gross focal deficits - Labs CBC & Chem 7: 05/14/22 05:25 05/13/22 05:37 Labs: Abnormal Lab Results - Last 24 Hours (Table) 12/01/2505/13/22 05/14/22 Range/Units 09:12 23:15 05:25 RBC 4.04 L (4.10-5.20) X 10*6/uL Hgb 11.0 L (12.0-15.0) g/dL Hct 35.3 L (37.2-46.3) % MCHC 31.2 L (32.0-37.0) g/dL RDW 15.0 H (11.5-14.5) % APTT 54.7 H (22.0-30.0) sec Crossmatch See Detail 05/14/22 Range/Units 07:42 RBC (4.10-5.20) X 10*6/uL Hgb (12.0-15.0) g/dL Hct (37.2-46.3) % MCHC (32.0-37.0) g/dL RDW (11.5-14.5) % APTT 81.6 H (22.0-30.0) sec Crossmatch Microbiology - Last 24 Hours (Table) 05/12/22 17:43 Nasal Screen MRSA/MSSA - Final Nasal Swab 05/12/22 22:00 Urine Culture - Preliminary Urine,Voided Assessment and Plan Plan: Episodes of chest pain found to have triple-vessel disease. Risk for coronary artery bypass Surgery greater than benefit per cardiovascular surgery. Plan for percutaneous intervention per cardiology services heart cath planned for 05/14/2022 Underlying history of chronic kidney disease creatinine 2.1 Underlying history of gout Underlying history of hypertension Underlying history of hyperlipidemia Underlying history of wny-yethsvl-gycpbzyfx diabetes mellitus Underlying history of osteoarthritis with previous history of joint replacement surgery At this time patient was seen and examined Home medications reviewed and reordered Repeat heart cath with intervention 05/14/2022 Continue to monitor kidney function Repeat labs ordered for a.m.
[2022-05-14] MEDS ORDERED: HEPARIN SODIUM 1,000 UN/ML (10ML VL) ONE (10:23)
[2022-05-14] MEDS ORDERED: fentaNYL (PF) 50 MCG/ML 2 ML AMP ONE (10:23)
[2022-05-14] MEDS ORDERED: IV FLUID CONTINUATION 1,000 ML IV ONE (10:43)
[2022-05-14] MEDS ORDERED: MIDAZOLAM 2 MG/2 ML VIAL IVP ONE ×2 (10:53→12:15)
[2022-05-14] MEDS ORDERED: LIDOCAINE 1% INJ 10MG/ML (30 ML VIAL-PF) SQ ONE (10:54)
[2022-05-14] MEDS: HEPARIN SODIUM 1,000 UN/ML (10ML VL) IV ONE ×2 (12:15→12:30)
[2022-05-14] MEDS ORDERED: HYDROmorphone 0.5 MG/0.5 ML SYRINGE IVP ONE (12:29)
[2022-05-14] MEDS ORDERED: IOPAMIDOL-370 100ML BTL INJ ONE (12:55)
[2022-05-14] MEDS ORDERED: TICAGRELOR 90 MG TAB ONE (12:59)
[2022-05-14] MEDS ORDERED: TICAGRELOR 90 MG TAB PO ONE (13:00)
[2022-05-14] MEDS ORDERED: IOPAMIDOL-370 50ML BTL INJ ONE (13:35)
[2022-05-14] MEDS ORDERED: RX INFO: IV CONTRAST WAS GIVEN 1 EACH MISC MISCELLANE PRN (13:52)
[2022-05-14] MEDS ORDERED: MAG HYDROX/AL HYDROX/SIMETH 30 ML CUP PO PRN (13:52)
[2022-05-14] MEDS ORDERED: ATROPINE SULFATE 0.1 MG/ML 10ML SYRINGE IV PRN (13:52)
[2022-05-14] MEDS ORDERED: NITROGLYCERIN SL TABS 0.4 MG TAB SUBLINGUAL PRN (13:52)
[2022-05-14] MEDS ORDERED: ZOLPIDEM 5 MG TAB PO PRN (13:52)
[2022-05-14 14:16] LABS: Glucose,Whole Blood 96 mg/dL (70-110)
[2022-05-14 15:14] VITALS: BMI 39.9
[2022-05-14] MEDS ORDERED: SODIUM CHLORIDE 0.9% 1,000 ML IV SCH (16:30)
[2022-05-14] MEDS ORDERED: hydrALAZINE HCL 20 MG/ML 1 ML VIAL IVP PRN (17:18)
[2022-05-14] MEDS: amLODIPine 2.5 MG TAB PO SCH (18:32)
--- NOTE | 2022-05-14 21:29 | P.PCN ---
Date of Procedure: 05/14/22 Operative Findings: PERCUTANEOUS CORONARY INTERVENTION Performing physician Diego Beatty M.D. Procedure Performed: 1. Successful stenting of the mid RCA using 3.0 x 38 mmXience drug-eluting stent with an excellent angiographic results. 2. Successful stending of the mid LAD using 2.5 x 12 mm Xience drug-eluting stent with an excellent angiographic result. 3. Successful stenting of the proximal LAD using 3.0 x 38 mm Xience drug- eluting stent with an excellent angiographic results 4. Successful stenting of the left main using 4.0 x 15 mm Xience drug-eluting stent with an excellent angiographic result 5. Placement of Impella CP in the left ventricle 6. Shockwave balloon angioplasty of the LAD and left main 7. Intravascular ultrasound of the LAD and left main 8. Right common femoral artery angiogram. Ultrasound-guided access of the right common femoral artery Indication: This is an 82-year-old female patient with CAD and prior revascularization presented to the hospital with a chest discomfort. She underwent dobutamine stress echocardiogram and that came in to be abnormal. Subsequently she underwent a heart catheterization and that showed severe triple-vessel CAD. She was seen by the cardiothoracic team and deemed to be high risk for open heart surgery. In the light of that she was brought today for percutaneous coronary intervention Approach: Right common femoral artery Complications: None Level of Sedation: Moderate with a sedation length of 174 minutes Procedure Discussion: After obtaining informed consent the patient was brought to the cardiac cardiac cath lab manager. The right common femoral artery was cannulated using micropuncture technique under ultrasound guidance, the micropuncture wire passed easily then and place the micropuncture sheath over the wire. I did selective right common femoral artery angiogram initially and that showed that the entry was above the inguinal ligament. For that reason the sheath was pulled out and I did hold pressure until I achieved hemostasis. Subsequently the right common femoral artery again was cannulated using micropuncture technique under ultrasound guidance, with a lower stick then I did advance a wire which was passed easily then I did advance that she is over the wire. At that point selective right common femoral artery angiogram was performed and showed good entry of the sheath in the middle of the right common femoral artery. At that point I did deploy 2 Perclose at 10:00 and 2:00. That was performed after a place a 6 Filipino sheath over all 3 5 wire. After that I did place an 8 Filipino sheath over all 3 5 wire. Subsequently anticoagulation was initiated using heparin with continuous ACT monitoring. Then I did advance a stiff [address] to the thoracic aorta. Predilatation was performed using 10 Filipino and then 12 Filipino dilator before advance 14 Filipino sheath over all 3 5 stiff wire. Subsequently the sheath was flushed. After that I did across the aortic valve using 6 Filipino pigtail catheter with 035 wire. Subsequently I did replace all 3 5 wire with 018 wire. Then I did advance the Impella over the 018 wire under fluoroscopy guidance to the LV. Subsequently it was turned on. After that I did engage the RCA using JR4 guiding catheter. The RCA was wired using a whisper wire. Subsequently I did predilate the RCA using 2.5 mm balloon before I deployed a 3.0 x 38 mm stent where the stent was positioned under fluoroscopy guidance and deployed under its nominal pressure. The following angiogram showed good angiographic results. At that point I did engage the left main using a 7 Filipino guiding catheter which was JL4 guiding catheter with added wire the LAD using a whisper wire and the diagonal using another whisper wire. I did attempt advancing 2.0 x 12 mm balloon but the balloon would not cross the LAD. At that point I decided to start using 1.5 mm balloon and the balloon also was not crossing the LAD. I was able to cross the LAD using guide liner. I did balloon angioplasty of the LAD using 1.5 mm balloon and subsequently 2.0 mm balloon. After that I was able to advance a 3.0 shockwave balloon with adjunctive use of guide liner as well. I did balloon angioplasty of the LAD using 3.0 mm shockwave balloon. I did also will ensure plasty of the left main using 3.0 mm shockwave balloon. Intravascular ultrasound was performed and showed a diameter of the LAD about 3 mm and the left main about 4 mm. I deployed in the LAD 3.0 x 38 mm stent where the stent was positioned under fluoroscopy guidance and deployed under its nominal pressure. For the left main and deployed 4.0 x 15 mm stent where the stent again was positioned under fluoroscopy guidance and deployed and there is nominal pressure. The area of overlap between the 2 stents was dilated using stent balloon. Subsequently an angiogram was performed and showed an area in the mid LAD distal to the stented segment appeared to be tight. I decided to stent that lesion. I deployed 2.5 x 12 mm stent where the stent again was positioned in the arthroscopy guidance and deployed and there is nominal pressure. The final angiogram showed good angiographic results and the procedure was completed without any complication. After that I did both the guide and the wire out. I did then deployed the 2 Perclose and achieved good hemostasis at the right groin. The procedure was completed without any complication Postprocedure Management: 1. Dual antiplatelet therapy using aspirin and Plavix for at least 6 month 2. Aggressive cholesterol control 3. Risk factors modification
[2022-05-14] MEDS: ASPIRIN 81 MG PO SCH (21:32)
[2022-05-14] MEDS: TICAGRELOR 90 MG TAB PO SCH (21:33)
[2022-05-15 06:18] LABS: Basophils % (A) 0 %; Eosinophils # (A) 0.2 k/uL (0-0.7); Eosinophils % (A) 2 %; HCT 35.9 % (34.0-46.0); HGB 11.6 gm/dL (11.4-16.0); Lymphocytes # (A) 1.6 k/uL (1.0-4.8); Lymphocytes % (A) 15 %; MCH 27.4 pg (25.0-35.0); MCHC 32.2 g/dL (31.0-37.0); Mean Platelet Volume 9.3; Monocytes # (A) 0.6 k/uL (0-1.0); Monocytes % (A) 5 %; Neutrophils # (A) 8.2 k/uL (1.3-7.7); Neutrophils % (A) 76 %; Platelet Count 154 k/uL (150-450); RBC 4.23 m/uL (3.80-5.40); WBC 10.9 k/uL (3.8-10.6)
[2022-05-15] MEDS ORDERED: HEPARIN SODIUM,PORCINE 10,000 UNIT in SODIUM CHLORIDE 0.9% 1,000 ML IRRIGATION PRN (07:00)
[2022-05-15] MEDS ORDERED: HEPARIN SODIUM,PORCINE 2,500 UNIT in SODIUM CHLORIDE 0.9% 250 ML IRRIGATION PRN (07:00)
[2022-05-15] MEDS: glipiZIDE 5 MG TAB PO SCH (07:01)
[2022-05-15 07:04] LABS: Albumin 3.1 g/dL (3.5-5.0); Calcium 8.9 mg/dL (8.4-10.2); Potassium 4.4 mmol/L (3.5-5.1); Total Bilirubin 0.8 mg/dL (0.2-1.3); Total Protein 5.5 g/dL (6.3-8.2)
--- NOTE | 2022-05-15 07:39 | P.PN ---
Subjective Progress Note Date: 05/15/22 Principal diagnosis: Severe coronary artery disease This is an 82-year-old female patient with CAD as well as hypertension and dyslipidemia who presented to the hospital with a chest discomfort and ruled out for acute coronary event. She underwent dobutamine stress echocardiogram and that came in to be abnormal but subsequently she underwent a heart catheterization and that revealed severe triple-vessel CAD. She didn't to be high risk for open heart surgery. She underwent yesterday successful stenting of the RCA and left main and LAD with a good angiographic results. May [id number] The patient was seen this morning. She is asymptomatic. She is hemodynamically stable. The right groin is soft and nontender with no bruises. She is on dual antiplatelet therapy along with high intensity statin. The creatinine this morning is 1.8. From the cardiovascular standpoint of view, the patient can be transferred to the third floor for preparing discharge in the next 24-48 hours. Objective - Vital Signs Vital signs: Vital Signs Temp 97.8 F 05/15/22 00:00 Pulse 66 05/15/22 07:00 Resp 9 L 05/15/22 07:00 BP 142/58 05/15/22 07:00 Pulse Ox 96 05/15/22 07:00 FiO2 Intake & Output 05/14/22 05/15/22 05/15/22 18:59 06:59 18:59 Intake Total 509.701 475 Output Total 150 1200 Balance 359.701 -725 Weight 89.7 kg 93.8 kg Intake: IV 200 300 Sodium Chloride 0.9% 1, 300 000 ml @ 75 mls/hr IV . [id number] [facility] Rx#:[id number] Intake, IV Titration 309.701 75 Amount Heparin Sod,Pork in 0.45% 84.701 NaCl 25,000 unit In 0.45 % NaCl 1 250ml.bag @ 11.7 UNITS/KG/HR 10.004 mls/ hr IV .Q24H [facility] Rx#: [id number] Sodium Chloride 0.9% 1, 225 75 000 ml @ 75 mls/hr IV . [id number] [facility] Rx#:[id number] Oral 100 Output: Urine 150 1200 Other: Voiding Method External Catheter External Catheter # Voids 0 0 - Constitutional General appearance: Present: no acute distress - Respiratory Respiratory: bilateral: diminished - Cardiovascular Rhythm: regular Heart sounds: normal: S1, S2 Abnormal Heart Sounds: Present: systolic murmur - Labs CBC & Chem 7: 05/15/22 05:34 05/15/22 05:34 Labs: Abnormal Lab Results - Last 24 Hours (Table) 05/14/22 05/14/22 05/15/22 Range/Units 05:25 07:42 05:34 WBC 10.9 H (3.8-10.6) k/uL RBC 4.04 L (4.10-5.20) X 10*6/uL Hgb 11.0 L (12.0-15.0) g/dL Hct 35.3 L (37.2-46.3) % MCHC 31.2 L (32.0-37.0) g/dL RDW 15.0 H (11.5-14.5) % Neutrophils # 8.2 H (1.3-7.7) k/uL APTT 81.6 H (22.0-30.0) sec Chloride (98-107) mmol/L Creatinine (0.52-1.04) mg/dL Glucose (74-99) mg/dL AST (14-36) U/L Total Protein (6.3-8.2) g/dL Albumin (3.5-5.0) g/dL 05/15/22 Range/Units 05:34 WBC (3.8-10.6) k/uL RBC (4.10-5.20) X 10*6/uL Hgb (12.0-15.0) g/dL Hct (37.2-46.3) % MCHC (32.0-37.0) g/dL RDW (11.5-14.5) % Neutrophils # (1.3-7.7) k/uL APTT (22.0-30.0) sec Chloride 111 H (98-107) mmol/L Creatinine 1.18 H (0.52-1.04) mg/dL Glucose 119 H (74-99) mg/dL AST 50 H (14-36) U/L Total Protein 5.5 L (6.3-8.2) g/dL Albumin 3.1 L (3.5-5.0) g/dL Microbiology - Last 24 Hours (Table) 05/12/22 22:00 Urine Culture - Preliminary Urine,Voided Gram Neg Bacilli Assessment and Plan Assessment: Assessment #1 CAD and status post revascularization with stenting as described above #2 mildly impaired LV function #3 hypertension #4 dyslipidemia Plan #1 continue the current medical regimen including dual antiplatelet therapy #2 continue high intensity statin #3 the patient can be transferred to the third floor
[2022-05-15] MEDS: FAMOTIDINE 20 MG TAB PO SCH (08:38)
[2022-05-15] MEDS: LOSARTAN 50 MG TAB PO SCH (08:38)
[2022-05-15] MEDS: allopurinoL 100 MG TAB PO SCH ×2 (08:38→21:20)
[2022-05-15] MEDS: atenoloL 50 MG TAB PO SCH (08:38)
[2022-05-15] MEDS: LORATADINE 10 MG TAB PO SCH (08:38)
[2022-05-15] MEDS: ATORVASTATIN 40 MG TAB PO SCH (08:38)
[2022-05-15] MEDS: TROSPIUM CHLORIDE 20 MG TABLET PO SCH (08:38)
[2022-05-15] MEDS: TICAGRELOR 90 MG TAB PO SCH ×2 (08:39→21:20)
--- NOTE | 2022-05-15 11:04 | P.PN ---
Subjective Progress Note Date: 05/15/22 Monica Bah, is an 82-year-old female patient of Dr. Law who presented to [facility] emergency room with a chief complaint of chest pain. Patient states that she started having chest pain about 3 weeks ago she was seen by her primary care physician who made her an appointment with cardiology, sometimes in the next 2 weeks, however patient continued to have more episodes of chest pain and she decided to come to emergency room for further evaluation. Patient describes episodes of chest pain as a pressure sensation in the lower sternal area that lasts 5-7 minutes each time sometimes after activities but occasionally at rest. She denies any radiation of the pain to the jaw or to the back or to the left arm she denies any nausea or vomiting shortness of breath or diaphoresis was chest pain. She was evaluated in the emergency room vital examination on presentation revealed a temperature of 97.4 pulse 61 respiration 16 blood pressure 135/64 pulse ox 98% on room air Laboratory data revealed a white blood count of 9.5 hemoglobin 13.5 platelet count 154 BUN 40 creatinine 2.10 lipase slightly elevated at 394 troponin level was negative Testing in the emergency room revealed EKG done in the emergency room revealed sinus rhythm with first-degree AV block and left anterior fascicular block. Chest x-ray done in the emergency room revealed normal chest no change Patient was admitted to medical floor for further evaluation and treatment Past medical history is significant for history of hypertension, history of chronic kidney disease, history of coronary artery disease with history of 2 stent placement 15 years ago and 17 years ago, and history of gout, history of hyperlipidemia, and history of zqv-mechxik-owskkqhne diabetes mellitus. On 05/12/2022 patient is alert and oriented 3. Today per cardiology for cardiac catheterization. Creatinine 1.5 for about 30. Patient will need gentle hydration post procedure. At this time patient denies chest pain or shortness of breath. Patient denies nausea vomiting or diarrhea. Patient denies any any urinary burning or frequency. Current temp 98.1, heart rate 60, respiratory rate 16, blood pressure 118/71 with a pulse ox 98% on room air On 05/13/2022 patient was seen and examined on the medical floor she is alert and oriented 3 in no apparent distress no fever or chills no headache or dizziness no chest pain at this time no shortness of breath no cough no nausea or vomiting no abdominal pain no diarrhea and no urinary symptoms, patient was evaluated by Dr. Delvalle, and we are awaiting decision whether her risk calculation will allow for her to have coronary artery bypass graft surgery. 05/14/2022 patient is alert and oriented 3. From further evaluation from basilar surgery and cardiology services plan at this time is for cardiac catheterization with intervention due to increased risk associated with coronary artery bypass graft surgery. Patient reports she is still having ongoing intermittent chest pain. This time patient denies shortness breath. Patient denies nausea vomiting or diarrhea. Patient denies any urinary burning or frequency. Repeat labs ordered. Patient remains on IV heparin at this time. Cardiac catheterization today On 05/15/2022 patient was seen and examined in the ICU she is alert and oriented 3 in no apparent distress there is no fever or chills no headache or dizziness no chest pain no shortness of breath no cough no nausea or vomiting no abdominal pain no diarrhea and no urinary symptoms. Vital exam today reveals a temperature of 98.4 pulse 69 respiration 15 blood pressure 147/88 pulse ox 97% on room air white blood count is 10.9 hemoglobin 11.6 platelet count 154 sodium 137 potassium 4.4 chloride 111 CO2 23 BUN 16 creatinine 1.18. Patient underwent cardiac catheterization yesterday with angioplasty and stent placement to the mid RCA, mid LAD, proximal LAD, and stenting of the left main artery. She is stable at this time and is continued to be monitored in ICU Objective - Vital Signs Vital signs: Vital Signs Temp 97.8 F 05/15/22 00:00 Pulse 66 05/15/22 07:00 Resp 9 L 05/15/22 07:00 BP 142/58 05/15/22 07:00 Pulse Ox 96 05/15/22 07:00 FiO2 Intake & Output 05/14/22 05/15/22 05/15/22 18:59 06:59 18:59 Intake Total 509.701 475 Output Total 150 1200 Balance 359.701 -725 Weight 89.7 kg 93.8 kg Intake: IV 200 300 Sodium Chloride 0.9% 1, 300 000 ml @ 75 mls/hr IV . [id number] [facility] Rx#:[id number] Intake, IV Titration 309.701 75 Amount Heparin Sod,Pork in 0.45% 84.701 NaCl 25,000 unit In 0.45 % NaCl 1 250ml.bag @ 11.7 UNITS/KG/HR 10.004 mls/ hr IV .Q24H [facility] Rx#: [id number] Sodium Chloride 0.9% 1, 225 75 000 ml @ 75 mls/hr IV . [id number] [facility] Rx#:[id number] Oral 100 Output: Urine 150 1200 Other: Voiding Method External Catheter External Catheter # Voids 0 0 - Exam In general patient is alert and oriented x 3 in no distress HEENT head normocephalic and atraumatic Neck is supple no JVD no goiter no lymphadenopathy no carotid bruit Chest examination is clear to auscultation no crackles no wheezing Cardiac exam reveals regular heart sounds S1 and S2 no gallops no murmurs Abdomen is soft nontender no organomegaly with normal bowel sounds Extremity exam reveals 2+ edema no cyanosis or clubbing Neurological examination reveals no gross focal deficits - Labs CBC & Chem 7: 05/15/22 05:34 05/15/22 05:34 Labs: Abnormal Lab Results - Last 24 Hours (Table) 05/14/22 05/14/22 05/15/22 Range/Units 05:25 07:42 05:34 WBC 10.9 H (3.8-10.6) k/uL RBC 4.04 L (4.10-5.20) X 10*6/uL Hgb 11.0 L (12.0-15.0) g/dL Hct 35.3 L (37.2-46.3) % MCHC 31.2 L (32.0-37.0) g/dL RDW 15.0 H (11.5-14.5) % Neutrophils # 8.2 H (1.3-7.7) k/uL APTT 81.6 H (22.0-30.0) sec Chloride (98-107) mmol/L Creatinine (0.52-1.04) mg/dL Glucose (74-99) mg/dL AST (14-36) U/L Total Protein (6.3-8.2) g/dL Albumin (3.5-5.0) g/dL 05/15/22 Range/Units 05:34 WBC (3.8-10.6) k/uL RBC (4.10-5.20) X 10*6/uL Hgb (12.0-15.0) g/dL Hct (37.2-46.3) % MCHC (32.0-37.0) g/dL RDW (11.5-14.5) % Neutrophils # (1.3-7.7) k/uL APTT (22.0-30.0) sec Chloride 111 H (98-107) mmol/L Creatinine 1.18 H (0.52-1.04) mg/dL Glucose 119 H (74-99) mg/dL AST 50 H (14-36) U/L Total Protein 5.5 L (6.3-8.2) g/dL Albumin 3.1 L (3.5-5.0) g/dL Microbiology - Last 24 Hours (Table) 05/12/22 22:00 Urine Culture - Preliminary Urine,Voided Gram Neg Bacilli Assessment and Plan Plan: Episodes of chest pain found to have triple-vessel disease. Risk for coronary artery bypass Surgery greater than benefit per cardiovascular surgery. Plan for percutaneous intervention per cardiology services heart cath planned for 05/14/2022 Underlying history of chronic kidney disease creatinine 2.1 Underlying history of gout Underlying history of hypertension Underlying history of hyperlipidemia Underlying history of uyn-rehacdm-ivbeofsfq diabetes mellitus Underlying history of osteoarthritis with previous history of joint replacement surgery At this time patient was seen and examined Home medications reviewed and reordered Repeat heart cath with intervention 05/14/2022 Continue to monitor kidney function Repeat labs ordered for a.m.
[2022-05-15] MEDS: ASPIRIN 81 MG PO SCH (21:20)
[2022-05-15] MEDS: amLODIPine 2.5 MG TAB PO SCH (21:32)
[2022-05-16 05:46] LABS: Basophils % (A) 0 %; Eosinophils # (A) 0.4 k/uL (0-0.7); Eosinophils % (A) 4 %; HCT 34.4 % (34.0-46.0); HGB 11.6 gm/dL (11.4-16.0); Lymphocytes # (A) 1.9 k/uL (1.0-4.8); Lymphocytes % (A) 18 %; MCH 28.7 pg (25.0-35.0); MCHC 33.7 g/dL (31.0-37.0); MCV 85.2 fL (80.0-100.0); Mean Platelet Volume 9.1; Monocytes # (A) 0.7 k/uL (0-1.0); Monocytes % (A) 6 %; Neutrophils # (A) 7.1 k/uL (1.3-7.7); Neutrophils % (A) 69 %; Platelet Count 136 k/uL (150-450); RBC 4.04 m/uL (3.80-5.40); RDW 14.9 % (11.5-15.5); WBC 10.3 k/uL (3.8-10.6)
[2022-05-16 06:02] LABS: Albumin 2.9 g/dL (3.5-5.0); Calcium 8.7 mg/dL (8.4-10.2); Potassium 4.2 mmol/L (3.5-5.1); Total Bilirubin 0.6 mg/dL (0.2-1.3); Total Protein 5.2 g/dL (6.3-8.2)
[2022-05-16] MEDS: glipiZIDE 5 MG TAB PO SCH (07:35)
--- NOTE | 2022-05-16 08:18 | P.PN ---
Subjective Progress Note Date: 05/16/22 Principal diagnosis: Severe coronary artery disease This is an 82-year-old female patient with CAD as well as hypertension and dyslipidemia who presented to the hospital with a chest discomfort and ruled out for acute coronary event. She underwent dobutamine stress echocardiogram and that came in to be abnormal but subsequently she underwent a heart catheterization and that revealed severe triple-vessel CAD. She didn't to be high risk for open heart surgery. She underwent yesterday successful stenting of the RCA and left main and LAD with a good angiographic results. May 152021 The patient was seen this morning. She is asymptomatic. She is hemodynamically stable. The right groin is soft and nontender with no bruises. She is on dual antiplatelet therapy along with high intensity statin. The creatinine this morning is 1.8. From the cardiovascular standpoint of view, the patient can be transferred to the third floor for preparing discharge in the next 24-48 hours. May 162021 The patient was seen and evaluated this morning. She remains asymptomatic internal chest pain or chest discomfort which she has been up and around walking to her bathroom without any symptoms. Hemodynamically she is stable. She is on dual antiplatelet therapy along with beta moni and statin. From the cardiovascular standpoint of view, the patient can be discharged home later on today and she would like to go home. Her creatinine has been stable. Objective - Vital Signs Vital signs: Vital Signs Temp 98.2 F 05/16/22 04:00 Pulse 75 05/16/22 04:00 Resp 20 05/16/22 04:00 BP 129/63 05/16/22 01:30 Pulse Ox 94 L 05/15/22 20:00 FiO2 Intake & Output 05/15/22 05/16/22 05/16/22 18:59 06:59 18:59 Intake Total 650 100 Output Total 1450 690 Balance -800 -590 Weight 92.2 kg Intake: Oral 650 100 Output: Urine 1450 690 Other: Voiding Method Bedside Commode Bedside Commode # Voids 0 1 - Constitutional General appearance: Present: no acute distress - Respiratory Respiratory: bilateral: CTA - Cardiovascular Rhythm: regular - Labs CBC & Chem 7: 05/16/22 04:41 05/16/22 04:41 Labs: Abnormal Lab Results - Last 24 Hours (Table) 05/16/22 05/16/22 Range/Units 04:41 04:41 Plt Count 136 L (150-450) k/uL Sodium 135 L (137-145) mmol/L Chloride 108 H (98-107) mmol/L BUN 19 H (7-17) mg/dL Creatinine 1.45 H (0.52-1.04) mg/dL Glucose 122 H (74-99) mg/dL AST 43 H (14-36) U/L Total Protein 5.2 L (6.3-8.2) g/dL Albumin 2.9 L (3.5-5.0) g/dL Microbiology - Last 24 Hours (Table) 05/12/22 22:00 Urine Culture - Final Urine,Voided Escherichia coli Assessment and Plan Assessment: Assessment #1 CAD and status post revascularization with stenting as described above #2 mildly impaired LV function #3 hypertension #4 dyslipidemia Plan #1 continue the current medical regimen including dual antiplatelet therapy #2 continue high intensity statin #3 the patient would like to go home. She is stable to be discharged home
[2022-05-16] MEDS: TROSPIUM CHLORIDE 20 MG TABLET PO SCH (10:10)
[2022-05-16] MEDS: ATORVASTATIN 40 MG TAB PO SCH (10:12)
[2022-05-16] MEDS: FAMOTIDINE 20 MG TAB PO SCH (10:13)
[2022-05-16] MEDS: TICAGRELOR 90 MG TAB PO SCH (10:13)
[2022-05-16] MEDS: atenoloL 50 MG TAB PO SCH (10:13)
[2022-05-16] MEDS: allopurinoL 100 MG TAB PO SCH (10:13)
[2022-05-16] MEDS: LORATADINE 10 MG TAB PO SCH (10:13)
[2022-05-16] MEDS: LOSARTAN 50 MG TAB PO SCH (10:13)
[2022-05-16 10:18] VITALS: RESP 19; TEMP 98
--- NOTE | 2022-05-16 10:36 | P.DS ---
Providers Date of admission: 05/13/22 10:01 Expected date of discharge: 05/16/22 Attending physician: Lupe Jackson Consults: 05/11/22 06:20 Consult Physician Routine Consulting Provider: Ky Ramírez Consult Reason/Comments: cp/UA Do you want consulting provider notified?: Yes 05/12/22 12:50 Consult Physician Routine Consulting Provider: Licha Javed Consult Reason/Comments: open heart consult, triple vessel disease Do you want consulting provider notified?: Already Contacted 05/13/22 08:23 Consult to Anesthesia Routine Consulting Provider: Anesthesia,Services Consult Reason/Comments: Cardiac Surgery Pre-Op 05/14/22 13:52 Consult Physician Routine Consulting Provider: [facility] Consult Reason/Comments: Post Interventional Patient Do you want consulting provider notified?: Already Contacted Primary care physician: Kasia Law Hospital Course: Diagnosis on discharge: Episodes of chest pain found to have triple-vessel disease. Risk for coronary artery bypass Surgery greater than benefit per cardiovascular surgery. Plan for percutaneous intervention per cardiology services heart cath planned for 022 Underlying history of chronic kidney disease creatinine 2.1 Underlying history of gout Underlying history of hypertension Underlying history of hyperlipidemia Underlying history of buv-bwvxmmv-pggihvvap diabetes mellitus Underlying history of osteoarthritis with previous history of joint replacement surgery Hospital course: Monica Bah, is an 82-year-old female patient of Dr. Law who presented to [facility] emergency room with a chief complaint of chest pain. Patient states that she started having chest pain about 3 weeks ago she was seen by her primary care physician who made her an appointment with cardiology, sometimes in the next 2 weeks, however patient continued to have more episodes of chest pain and she decided to come to emergency room for further evaluation. Patient describes episodes of chest pain as a pressure sensation in the lower sternal area that lasts 5-7 minutes each time sometimes after activities but occasionally at rest. She denies any radiation of the pain to the jaw or to the back or to the left arm she denies any nausea or vomiting shortness of breath or diaphoresis was chest pain. She was evaluated in the emergency room vital examination on presentation revealed a temperature of 97.4 pulse 61 respiration 16 blood pressure 135/64 pulse ox 98% on room air Laboratory data revealed a white blood count of 9.5 hemoglobin 13.5 platelet count 154 BUN 40 creatinine 2.10 lipase slightly elevated at 394 troponin level was negative Testing in the emergency room revealed EKG done in the emergency room revealed sinus rhythm with first-degree AV block and left anterior fascicular block. Chest x-ray done in the emergency room revealed normal chest no change Patient was admitted to medical floor for further evaluation and treatment Past medical history is significant for history of hypertension, history of chronic kidney disease, history of coronary artery disease with history of 2 stent placement 15 years ago and 17 years ago, and history of gout, history of hyperlipidemia, and history of sbt-nhjaqhk-ykmqilybh diabetes mellitus. On 05/12/2022 patient is alert and oriented 3. Today per cardiology for cardiac catheterization. Creatinine 1.5 for about 30. Patient will need gentle hydration post procedure. At this time patient denies chest pain or shortness of breath. Patient denies nausea vomiting or diarrhea. Patient denies any any urinary burning or frequency. Current temp 98.1, heart rate 60, respiratory rate 16, blood pressure 118/71 with a pulse ox 98% on room air On 05/13/2022 patient was seen and examined on the medical floor she is alert and oriented 3 in no apparent distress no fever or chills no headache or dizziness no chest pain at this time no shortness of breath no cough no nausea or vomiting no abdominal pain no diarrhea and no urinary symptoms, patient was evaluated by Dr. Delvalle, and we are awaiting decision whether her risk calculation will allow for her to have coronary artery bypass graft surgery. 05/14/2022 patient is alert and oriented 3. From further evaluation from basilar surgery and cardiology services plan at this time is for cardiac catheterization with intervention due to increased risk associated with coronary artery bypass graft surgery. Patient reports she is still having ongoing intermittent chest pain. This time patient denies shortness breath. Patient denies nausea vomiting or diarrhea. Patient denies any urinary burning or frequency. Repeat labs ordered. Patient remains on IV heparin at this time. Cardiac catheterization today On 05/15/2022 patient was seen and examined in the ICU she is alert and oriented 3 in no apparent distress there is no fever or chills no headache or dizziness no chest pain no shortness of breath no cough no nausea or vomiting no abdominal pain no diarrhea and no urinary symptoms. Vital exam today reveals a temperature of 98.4 pulse 69 respiration 15 blood pressure 147/88 pulse ox 97% on room air white blood count is 10.9 hemoglobin 11.6 platelet count 154 sodium 137 potassium 4.4 chloride 111 CO2 23 BUN 16 creatinine 1.18. Patient underwent cardiac catheterization yesterday with angioplasty and stent placement to the mid RCA, mid LAD, proximal LAD, and stenting of the left main artery. She is stable at this time and is continued to be monitored in ICU On 05/16/2022 patient was seen and examined in the ICU she is alert and oriented 3 in no apparent distress there is no fever or chills no headache or dizziness no chest pain no shortness of breath no cough no nausea or vomiting no abdominal pain no diarrhea no blood in the stools no burning with urination no frequency or urgency and no hematuria. Patient was evaluated by cardiology and was cleared for discharge, she will be discharged to home today, prescriptions for Brillinta, atorvastatin, Lisinopril and amlodipine were given to patient, she will follow-up with cardiology in the next week, she will follow-up with her primary care physician in the next 2-3 days Patient Condition at Discharge: Good Plan - Discharge Summary Discharge Rx Participant: Yes New Discharge Prescriptions: New Ticagrelor [Brilinta] 90 mg PO BID tab Atorvastatin [Lipitor] 40 mg PO DAILY tab amLODIPine [Norvasc] 2.5 mg PO HS tab lisinopriL [Zestril] 2.5 mg PO DAILY tab Continue Famotidine [Pepcid] 20 mg PO DAILY Cetirizine HCl [Zyrtec] 10 mg PO DAILY atenoloL [Tenormin] 50 mg PO DAILY Aspirin [Adult Low Dose Aspirin EC] 81 mg PO HS Furosemide [Lasix] 20 mg PO DAILY glipiZIDE 5 mg PO DAILY Olmesartan Medoxomil [Benicar] 40 mg PO DAILY Nitroglycerin Sl Tabs [Nitrostat] 0.4 mg SUBLINGUAL Q5M PRN PRN Reason: Chest Pain allopurinoL [Zyloprim] 100 mg PO BID Fesoterodine Fumarate [Fesoterodine Fumarate ER] 4 mg PO DAILY Discontinued Simvastatin [Zocor] 10 mg PO HS Discharge Medication List Cetirizine HCl [Zyrtec] 10 mg PO DAILY 01/16/18 [History] Famotidine [Pepcid] 20 mg PO DAILY 01/16/18 [History] atenoloL [Tenormin] 50 mg PO DAILY 01/16/18 [History] Aspirin [Adult Low Dose Aspirin EC] 81 mg PO HS 05/04/19 [History] Furosemide [Lasix] 20 mg PO DAILY 05/05/19 [History] Fesoterodine Fumarate [Fesoterodine Fumarate ER] 4 mg PO DAILY 05/11/22 [History] Nitroglycerin Sl Tabs [Nitrostat] 0.4 mg SUBLINGUAL Q5M PRN 05/11/22 [History] Olmesartan Medoxomil [Benicar] 40 mg PO DAILY 05/11/22 [History] allopurinoL [Zyloprim] 100 mg PO BID 05/11/22 [History] glipiZIDE 5 mg PO DAILY 05/11/22 [History] Atorvastatin [Lipitor] 40 mg PO DAILY tab 05/16/22 [Rx] Ticagrelor [Brilinta] 90 mg PO BID tab 05/16/22 [Rx] amLODIPine [Norvasc] 2.5 mg PO HS tab 05/16/22 [Rx] lisinopriL [Zestril] 2.5 mg PO DAILY tab 05/16/22 [Rx] Follow up Appointment(s)/Referral(s): Kasia Law MD [Primary Care Provider] - 1-2 days Diego Beatty MD [STAFF PHYSICIAN] - 1 Week Patient Instructions/Handouts: Chest Pain (ED)
[2022-05-16 12:08] VITALS: BP 110/61; PULSE 77
== END 2022-05-16 12:11 | disposition home or self-care (01) | DRG 217 ==
LOC: EC 04:14 → 6NMEDSUR 06:22 → OBSVTOIN 05-13 10:01 → 2SICU 05-14 13:52
PROVIDERS: ADMIT Internal Medicine; ATTEND Internal Medicine
PROC: 4A023N7 Measurement of Cardiac Sampling and Pressure, Left Heart, Percutaneous Approach (ICD-10-PCS; 2022-05-12)
PROC: B2111ZZ Fluoroscopy of Multiple Coronary Arteries using Low Osmolar Contrast (ICD-10-PCS; 2022-05-12)
PROC: 027337Z Dilation of Coronary Artery, Four or More Arteries with Four or More Drug-eluting Intraluminal Devices, Percutaneous Approach (ICD-10-PCS; principal; 2022-05-14 09:25)
PROC: 02F03ZZ Fragmentation in Coronary Artery, One Artery, Percutaneous Approach (ICD-10-PCS; principal; 2022-05-14 09:25)
PROC: 5A0221D Assistance with Cardiac Output using Impeller Pump, Continuous (ICD-10-PCS; principal; 2022-05-14 09:25)
PROC: B41F1ZZ Fluoroscopy of Right Lower Extremity Arteries using Low Osmolar Contrast (ICD-10-PCS; principal; 2022-05-14 09:25)
PROC: 02HA3RJ Insertion of Short-term External Heart Assist System into Heart, Intraoperative, Percutaneous Approach (ICD-10-PCS; 2022-05-14 09:25)
DX: I25.119 Atherosclerotic heart disease of native coronary artery with unspecified angina pectoris (principal); T82.855A Stenosis of coronary artery stent, initial encounter; Z68.41 Body mass index [BMI] 40.0-44.9, adult; E11.22 Type 2 diabetes mellitus with diabetic chronic kidney disease; E66.9 Obesity, unspecified; E78.5 Hyperlipidemia, unspecified; I12.9 Hypertensive chronic kidney disease with stage 1 through stage 4 chronic kidney disease, or unspecified chronic kidney disease; I25.2 Old myocardial infarction; I35.8 Other nonrheumatic aortic valve disorders; I44.0 Atrioventricular block, first degree; I44.4 Left anterior fascicular block; M10.9 Gout, unspecified; M19.90 Unspecified osteoarthritis, unspecified site; N18.9 Chronic kidney disease, unspecified; Y83.1 Surgical operation with implant of artificial internal device as the cause of abnormal reaction of the patient, or of later complication, without mention of misadventure at the time of the procedure; Z79.82 Long term (current) use of aspirin; Z79.84 Long term (current) use of oral hypoglycemic drugs; Z79.899 Other long term (current) drug therapy; Z83.3 Family history of diabetes mellitus; Z96.652 Presence of left artificial knee joint; Z71.3 Dietary counseling and surveillance; Z60.2 Problems related to living alone; Z88.0 Allergy status to penicillin
CPT/HCPCS: 0715T; 33990; 36415; 71046; 80048; 80053; 80061; 81001; 83036; 83690; 83735; 83880; 84443; 84484; 85025; 85610; 85730; 86850; 86900; 86901; 86920; 87070; 87077; 87086; 87186; 92978; 93005; 93306; 93351; 93458; 93880; 93970; 94150; 94760; 99285

== ENCOUNTER 2022-05-23 19:32 | Emergency (ER) | payer MEDICARE, OTHER ==
[2022-05-23 19:43] VITALS: TEMP 101.7
[2022-05-23] MEDS ORDERED: ACETAMINOPHEN TAB 325 MG TAB PO STA (20:08)
[2022-05-23] MEDS ORDERED: SODIUM CHLORIDE 0.9% 500 ML 500 ML IV STA (20:08)
--- NOTE | 2022-05-23 20:12 | ED ---
General Adult HPI - General Chief complaint: Weakness Stated complaint: Weakness Time Seen by Provider: 05/23/22 19:50 Source: EMS Mode of arrival: EMS Limitations: no limitations - History of Present Illness Initial comments: Patient presents to the emergency department accompanied by her family for evaluation of weakness and an episode of confusion. Patient's family states they are uncertain of what specifically she was confused about as she is cur rently awake, alert, and able to answer all questions appropriately. Family present at bedside state that this is baseline for patient, though express concern about possible UTI or gouty flare-up. Patient recently had a heart catheterization and has been unable to take her gout medication due to poor renal function. She does complain of pain in the feet she associates with gouty flareup, but states it is mild compared to usual. Family states the patient had a urinalysis done but they are uncertain of results. She does not take anything to treat her fever prior to arrival. Patient does report a cough with other family members in the household sick as well. Reports decreased appetite. De nies headache, dizziness, chest pain, shortness of breath, abdominal pain, nausea, vomiting, diarrhea, or dysuria. - Related Data Home Medications Medication Instructions Recorded Confirmed Cetirizine HCl [Zyrtec] 10 mg PO DAILY 01/16/18 05/23/22 Famotidine [Pepcid] 20 mg PO DAILY 01/16/18 05/23/22 atenoloL [Tenormin] 50 mg PO DAILY 01/16/18 05/23/22 Aspirin [Adult Low Dose Aspirin EC] 81 mg PO HS 05/04/19 05/23/22 Furosemide [Lasix] 20 mg PO DAILY 05/05/19 05/23/22 Fesoterodine Fumarate 4 mg PO DAILY 05/11/22 05/23/22 [Fesoterodine Fumarate ER] Nitroglycerin Sl Tabs [Nitrostat] 0.4 mg SUBLINGUAL Q5M PRN 05/11/22 05/23/22 Olmesartan Medoxomil [Benicar] 40 mg PO DAILY 05/11/22 05/23/22 allopurinoL [Zyloprim] 100 mg PO BID 05/11/22 05/23/22 glipiZIDE 5 mg PO DAILY 05/11/22 05/23/22 Previous Rx's Medication Instructions Recorded Atorvastatin [Lipitor] 40 mg PO DAILY tab 05/16/22 Ticagrelor [Brilinta] 90 mg PO BID tab 05/16/22 amLODIPine [Norvasc] 2.5 mg PO HS tab 05/16/22 lisinopriL [Zestril] 2.5 mg PO DAILY tab 05/16/22 Nitrofurantoin Monohyd/M-Cryst 100 mg PO Q12HR 5 Days #10 cap 05/23/22 [Macrobid] Allergies Allergy/AdvReac Type Severity Reaction Status Date / Time Penicillins Allergy Rash/Hives Verified 05/23/22 21:28 Steroid (unknown) Allergy Rash/Hives Uncoded 05/11/22 08:09 Review of Systems ROS Statement: Those systems with pertinent positive or pertinent negative responses have been documented in the HPI. ROS Other: All systems not noted in ROS Statement are negative. Past Medical History Past Medical History: Coronary Artery Disease (CAD), Chest Pain / Angina, Diabetes Mellitus, Myocardial Infarction (LA), Osteoarthritis (OA) Last Myocardial Infarction Date:: 2006 History of Any Multi-Drug Resistant Organisms: None Reported Past Surgical History: Cholecystectomy, Heart Catheterization With Stent, Hysterectomy, Orthopedic Surgery Additional Past Surgical History / Comment(s): carpal tunnel shoulder surg Past Anesthesia/Blood Transfusion Reactions: No Reported Reaction Date of Last Stent Placement:: 2006 Past Psychological History: No Psychological Hx Reported Smoking Status: Never smoker Past Alcohol Use History: None Reported Past Drug Use History: None Reported - Past Family History Father Additional Family Medical History / Comment(s): of cancer of lungs from smoking Mother Family Medical History: Diabetes Mellitus Additional Family Medical History / Comment(s): of complications of diabetes General Exam Limitations: no limitations General appearance: alert, in no apparent distress Eye exam: Present: normal appearance, PERRL, EOMI. Absent: scleral icterus, conjunctival injection ENT exam: Present: mucous membranes moist Respiratory exam: Present: normal lung sounds bilaterally. Absent: respiratory distress, wheezes, rales, rhonchi, stridor, chest wall tenderness Cardiovascular Exam: Present: regular rate, normal rhythm, normal heart sounds GI/Abdominal exam: Present: soft, normal bowel sounds. Absent: distended, ten derness, guarding, rebound, rigid Extremities exam: Present: other (right groin accessed for heart cath is soft and nontender) Back exam: Absent: CVA tenderness (R), CVA tenderness (L) Neurological exam: Present: alert, oriented X3 Expanded Patient oriented to: Present: person, place, time Speech: Present: fluid speech Cranial nerves: EOM's Intact: Normal Motor strength exam: RUE: 5, LUE: 5, RLE: 5, LLE: 5 Eye Response: (4) open spontaneously Motor Response: (6) obeys commands Verbal Response: (5) oriented [place] Total: 15 Psychiatric exam: Present: normal affect, normal mood Skin exam: Present: warm, dry, intact, normal color. Absent: rash Course Vital Signs 05/23/22 05/24/22 19:38 00:01 Temperature 101.7 F H Pulse Rate 76 78 Respiratory 16 15 Rate Blood Pressure 145/62 129/77 O2 Sat by Pulse 99 99 Oximetry - Reevaluation(s) Reevaluation #1: 05/23/22 22:30 Discussed antibiotic selection given patient's ALLERGIES and renal function at length with my attending, Dr. Kang. Based on sensitivity report and CrCl 32, Macrobid is decided upon. 05/23/22 23:03 Discussed plan of care to discharge home with strict return parameters and careful monitoring. Explained importance of taking antibiotic and treating fever. Encouraged to follow up with PCP within 48 hours. Patient verbalizes readiness for discharge and daughter is present at bedside. T=99.4 oral HR=64 RR=18 UR=541/70 SpO2=95% room air Medical Decision Making - Medical Decision Making This is a pleasant 82-year-old female with a past medical history of chronic kidney disease and recent heart cath with stent placement who presents to the emergency department for evaluation of fever, generalized weakness, and concern for UTI. Upon exam, patient is awake, alert, and answering questions appropriately. She is neurologically intact with no focal deficit. She is warm to touch with a temperature of 101.7. In reviewing her medical record and discharge paperwork, there is no evidence that patient was prescribed any antib iotics for treatment of UTI despite positive urine culture. Laboratory studies were obtained showing BUN 21, creatinine 1.76, GFR 27. Urinalysis is nitrite positive. Influenza and Covid are negative. Tylenol given for fever with improvement. Given patient's medication ALLERGIES and diminished renal function, antibiotic selection was limited. Sensitivity report was utilized. After calculating creatinine clearance of 32, Macrobid was decided upon to the best course of antibiotic treatment. Patient was given first dose in the emergency department. Discussed the importance of careful monitoring and close follow-up with patient and daughter. They verbalize understanding. Patient will be discharged home to see her PCP on Tuesday. Antibiotic sent to preferred pharmacy. Return parameters discussed in detail. Patient and family verbalized understanding and agreed with this plan. Attending: Jorge Luis. - Lab Data Result diagrams: 05/23/22 20:47 05/23/22 20:47 Lab Results 05/23/22 05/23/22 05/23/22 Range/Units 20:43 20:47 20:47 WBC 9.1 (3.8-10.6) k/uL RBC 4.28 (3.80-5.40) m/uL Hgb 12.1 (11.4-16.0) gm/dL Hct 36.2 (34.0-46.0) % MCV 84.4 (80.0-100.0) fL MCH 28.2 (25.0-35.0) pg MCHC 33.4 (31.0-37.0) g/dL RDW 14.7 (11.5-15.5) % Plt Count 296 D (150-450) k/uL MPV 8.4 Neutrophils % 76 % Lymphocytes % 10 % Monocytes % 6 % Eosinophils % 6 % Basophils % 1 % Neutrophils # 6.9 (1.3-7.7) k/uL Lymphocytes # 0.9 L (1.0-4.8) k/uL Monocytes # 0.6 (0-1.0) k/uL Eosinophils # 0.5 (0-0.7) k/uL Basophils # 0.1 (0-0.2) k/uL PT 10.1 (9.0-12.0) sec INR 0.9 (<1.2) APTT 24.3 (22.0-30.0) sec Sodium (137-145) mmol/L Potassium (3.5-5.1) mmol/L Chloride (98-107) mmol/L Carbon Dioxide (22-30) mmol/L Anion Gap mmol/L BUN (7-17) mg/dL Creatinine (0.52-1.04) mg/dL Est GFR (CKD-EPI)AfAm (>60 ml/min/1.73 sqM) Est GFR (CKD-EPI)NonAf (>60 ml/min/1.73 sqM) Glucose (74-99) mg/dL Plasma Lactic Acid Ravi (0.7-2.0) mmol/L Calcium (8.4-10.2) mg/dL Magnesium (1.6-2.3) mg/dL Total Bilirubin (0.2-1.3) mg/dL AST (14-36) U/L ALT (4-34) U/L Alkaline Phosphatase (38-126) U/L Troponin I (0.000-0.034) ng/mL NT-Pro-B Natriuret Pep pg/mL Total Protein (6.3-8.2) g/dL Albumin (3.5-5.0) g/dL Urine Color Light Yellow Urine Appearance Cloudy H (Clear) Urine pH 8.0 (5.0-8.0) Ur Specific [place] 1.014 (1.001-1.035) Urine Protein Trace H (Negative) Urine Glucose (UA) Negative (Negative) Urine Ketones Negative (Negative) Urine Blood Negative (Negative) Urine Nitrite Positive H (Negative) Urine Bilirubin Negative (Negative) Urine Urobilinogen <2.0 (<2.0) mg/dL Ur Leukocyte Esterase Moderate H (Negative) Urine RBC 3 (0-5) /hpf Urine WBC 34 H (0-5) /hpf Ur Squamous Epith Cells 32 H (0-4) /hpf Amorphous Sediment Few H (None) /hpf Urine Bacteria Many H (None) /hpf Hyaline Casts 1 (0-2) /lpf Urine Mucus Rare H (None) /hpf Coronavirus (PCR) (Not Detectd) Influenza Type A RNA (Not Detectd) Influenza Type B (PCR) (Not Detectd) 05/23/22 05/23/22 05/23/22 Range/Units 20:47 20:47 20:47 WBC (3.8-10.6) k/uL RBC (3.80-5.40) m/uL Hgb (11.4-16.0) gm/dL Hct (34.0-46.0) % MCV (80.0-100.0) fL MCH (25.0-35.0) pg MCHC (31.0-37.0) g/dL RDW (11.5-15.5) % Plt Count (150-450) k/uL MPV Neutrophils % % Lymphocytes % % Monocytes % % Eosinophils % % Basophils % % Neutrophils # (1.3-7.7) k/uL Lymphocytes # (1.0-4.8) k/uL Monocytes # (0-1.0) k/uL Eosinophils # (0-0.7) k/uL Basophils # (0-0.2) k/uL PT (9.0-12.0) sec INR (<1.2) APTT (22.0-30.0) sec Sodium 136 L (137-145) mmol/L Potassium 4.7 (3.5-5.1) mmol/L Chloride 104 (98-107) mmol/L Carbon Dioxide 25 (22-30) mmol/L Anion Gap 7 mmol/L BUN 21 H (7-17) mg/dL Creatinine 1.76 H (0.52-1.04) mg/dL Est GFR (CKD-EPI)AfAm 31 (>60 ml/min/1.73 sqM) Est GFR (CKD-EPI)NonAf 27 (>60 ml/min/1.73 sqM) Glucose 98 (74-99) mg/dL Plasma Lactic Acid Ravi 1.3 (0.7-2.0) mmol/L Calcium 9.2 (8.4-10.2) mg/dL Magnesium 2.2 (1.6-2.3) mg/dL Total Bilirubin 0.8 (0.2-1.3) mg/dL AST 48 H (14-36) U/L ALT 29 (4-34) U/L Alkaline Phosphatase 105 (38-126) U/L Troponin I 0.034 (0.000-0.034) ng/mL NT-Pro-B Natriuret Pep pg/mL Total Protein 6.9 (6.3-8.2) g/dL Albumin 3.7 (3.5-5.0) g/dL Urine Color Urine Appearance (Clear) Urine pH (5.0-8.0) Ur Specific [place] (1.001-1.035) Urine Protein (Negative) Urine Glucose (UA) (Negative) Urine Ketones (Negative) Urine Blood (Negative) Urine Nitrite (Negative) Urine Bilirubin (Negative) Urine Urobilinogen (<2.0) mg/dL Ur Leukocyte Esterase (Negative) Urine RBC (0-5) /hpf Urine WBC (0-5) /hpf Ur Squamous Epith Cells (0-4) /hpf Amorphous Sediment (None) /hpf Urine Bacteria (None) /hpf Hyaline Casts (0-2) /lpf Urine Mucus (None) /hpf Coronavirus (PCR) (Not Detectd) Influenza Type A RNA (Not Detectd) Influenza Type B (PCR) (Not Detectd) 05/23/22 05/23/22 05/23/22 Range/Units 20:47 20:47 20:47 WBC (3.8-10.6) k/uL RBC (3.80-5.40) m/uL Hgb (11.4-16.0) gm/dL Hct (34.0-46.0) % MCV (80.0-100.0) fL MCH (25.0-35.0) pg MCHC (31.0-37.0) g/dL RDW (11.5-15.5) % Plt Count (150-450) k/uL MPV Neutrophils % % Lymphocytes % % Monocytes % % Eosinophils % % Basophils % % Neutrophils # (1.3-7.7) k/uL Lymphocytes # (1.0-4.8) k/uL Monocytes # (0-1.0) k/uL Eosinophils # (0-0.7) k/uL Basophils # (0-0.2) k/uL PT (9.0-12.0) sec INR (<1.2) APTT (22.0-30.0) sec Sodium (137-145) mmol/L Potassium (3.5-5.1) mmol/L Chloride (98-107) mmol/L Carbon Dioxide (22-30) mmol/L Anion Gap mmol/L BUN (7-17) mg/dL Creatinine (0.52-1.04) mg/dL Est GFR (CKD-EPI)AfAm (>60 ml/min/1.73 sqM) Est GFR (CKD-EPI)NonAf (>60 ml/min/1.73 sqM) Glucose (74-99) mg/dL Plasma Lactic Acid Ravi (0.7-2.0) mmol/L Calcium (8.4-10.2) mg/dL Magnesium (1.6-2.3) mg/dL Total Bilirubin (0.2-1.3) mg/dL AST (14-36) U/L ALT (4-34) U/L Alkaline Phosphatase (38-126) U/L Troponin I (0.000-0.034) ng/mL NT-Pro-B Natriuret Pep 1820 pg/mL Total Protein (6.3-8.2) g/dL Albumin (3.5-5.0) g/dL Urine Color Urine Appearance (Clear) Urine pH (5.0-8.0) Ur Specific [place] (1.001-1.035) Urine Protein (Negative) Urine Glucose (UA) (Negative) Urine Ketones (Negative) Urine Blood (Negative) Urine Nitrite (Negative) Urine Bilirubin (Negative) Urine Urobilinogen (<2.0) mg/dL Ur Leukocyte Esterase (Negative) Urine RBC (0-5) /hpf Urine WBC (0-5) /hpf Ur Squamous Epith Cells (0-4) /hpf Amorphous Sediment (None) /hpf Urine Bacteria (None) /hpf Hyaline Casts (0-2) /lpf Urine Mucus (None) /hpf Coronavirus (PCR) Not Detected (Not Detectd) Influenza Type A RNA Not Detected (Not Detectd) Influenza Type B (PCR) Not Detected (Not Detectd) - EKG Data EKG shows normal: sinus rhythm Rate: normal EKG Comments: EKG obtained at 2117 shows sinus rhythm with first degree AV block, pattern consistent with pulmonary disease, and left anterior fascicular block. Ventricular rate 72, NE interval 274, QRS duration 102, QT/QTC 377/101. Interpretation abnormal ECG. EKG compared with those previously obtained; no significant change. - Radiology Data Radiology results: report reviewed, image reviewed Interpreted by me: Chest x-ray was visualized showing no area of infiltrate or consolidation. Two-view chest x-ray was obtained. Report was reviewed in its entirety. Impression per Dr. Hopson is no acute cardiopulmonary disease/process. Disposition Clinical Impression: Fever, Generalized weakness, UTI (urinary tract infection), Chronic kidney disease Disposition: HOME SELF-CARE Condition: Stable Instructions (If sedation given, give patient instructions): Urinary Tract Infection in Women (ED) Additional Instructions: Take antibiotic as prescribed. Increase your intake of water. Treat fever with Tylenol. Follow-up with PCP for recheck in 24 hours. Return to the emergency department if you are not improved within 48 hours or with any worsening of symptoms. Prescriptions: Nitrofurantoin Monohyd/M-Cryst [Macrobid] 100 mg PO Q12HR 5 Days #10 cap Is patient prescribed a controlled substance at d/c from ED?: No Referrals: Kasia Law MD [Primary Care Provider] - 1-2 days
[2022-05-23 21:06] LABS: Basophils # (A) 0.1 k/uL (0-0.2); Basophils % (A) 1 %; Eosinophils # (A) 0.5 k/uL (0-0.7); Eosinophils % (A) 6 %; HCT 36.2 % (34.0-46.0); HGB 12.1 gm/dL (11.4-16.0); Lymphocytes # (A) 0.9 k/uL (1.0-4.8); Lymphocytes % (A) 10 %; MCH 28.2 pg (25.0-35.0); MCHC 33.4 g/dL (31.0-37.0); MCV 84.4 fL (80.0-100.0); Mean Platelet Volume 8.4; Monocytes # (A) 0.6 k/uL (0-1.0); Monocytes % (A) 6 %; Neutrophils # (A) 6.9 k/uL (1.3-7.7); Neutrophils % (A) 76 %; RBC 4.28 m/uL (3.80-5.40); RDW 14.7 % (11.5-15.5); WBC 9.1 k/uL (3.8-10.6)
[2022-05-23 21:11] LABS: Platelet Count 296 k/uL (150-450)
[2022-05-23 21:19] LABS: Albumin 3.7 g/dL (3.5-5.0); Calcium 9.2 mg/dL (8.4-10.2); Magnesium 2.2 mg/dL (1.6-2.3); Potassium 4.7 mmol/L (3.5-5.1); Total Bilirubin 0.8 mg/dL (0.2-1.3); Total Protein 6.9 g/dL (6.3-8.2)
[2022-05-23 21:25] LABS: INR 0.9 (<1.2); Partial Thromboplastin Time 24.3 sec (22.0-30.0); Prothrombin Time 10.1 sec (9.0-12.0)
--- NOTE | 2022-05-23 21:34 | XR ---
EXAMINATION TYPE: XR chest 2V DATE OF EXAM: 05/23/2022 9:13 PM COMPARISON: Chest x-ray 05/11/2022 TECHNIQUE: XR chest 2V . CLINICAL INDICATION:Female, 82 years old with history of Weakness; Patient is rotated in position. FINDINGS: Lungs/Pleura: There is no evidence of pleural effusion, focal consolidation, or pneumothorax. Subseg mental atelectasis of the left midlung and right lung base. Pulmonary vascularity: Unremarkable. Heart/mediastinum: Cardiomediastinal silhouette is normal in appearance. Musculoskeletal: Multiple level degenerative disc disease changes seen throughout the spine. No acute osseous process. IMPRESSION: No acute cardiopulmonary disease/process.
[2022-05-23 21:50] LABS: Amorphous Sediment,Urine Few /hpf; Appearance,Urine Cloudy (Clear); Bacteria,Urine Many /hpf; Bilirubin,Urine Negative (Negative); Blood,Urine Negative (Negative); Color,Urine Light Yellow; Glucose,Urine (UA) Negative (Negative); Hyaline Casts,Urine 1 /lpf (0-2); Ketones,Urine Negative (Negative); Leukocyte Esterase,Urine Moderate (Negative); Mucus,Urine Rare /hpf; Nitrite,Urine Positive (Negative); Protein,Urine Trace (Negative); RBC,Urine 3 /hpf (0-5); Specific Gravity,Urine 1.014 (1.001-1.035); Squamous Epithelial Cell,Urine 32 /hpf (0-4); Urobilinogen,Urine <2.0 mg/dL (<2.0); WBC,Urine 34 /hpf (0-5)
[2022-05-23] MEDS ORDERED: NITROFURANTOIN MONOHYD/M-CRYST 100 MG CAP PO STA (23:02)
[2022-05-24 00:02] VITALS: BP 129/77; PULSE 78; RESP 15
== END 2022-05-24 00:02 | disposition home or self-care (01) ==
LOC: EC 19:32
DX: R53.1 Weakness (principal); R50.9 Fever, unspecified; N39.0 Urinary tract infection, site not specified; E11.22 Type 2 diabetes mellitus with diabetic chronic kidney disease; N18.9 Chronic kidney disease, unspecified; I25.10 Atherosclerotic heart disease of native coronary artery without angina pectoris; I25.2 Old myocardial infarction; Z79.84 Long term (current) use of oral hypoglycemic drugs; Z20.822 Contact with and (suspected) exposure to COVID-19; Z79.82 Long term (current) use of aspirin; Z88.0 Allergy status to penicillin; Z88.8 Allergy status to other drugs, medicaments and biological substances
CPT/HCPCS: 36415; 71046; 80053; 81001; 83605; 83735; 83880; 84484; 85025; 85610; 85730; 87040; 87077; 87086; 87186; 87502; 87635; 93005; 99285

== ENCOUNTER 2023-11-01 08:03 | Day surgery (SDC) | payer MEDICARE, OTHER ==
[~2023-11-01 08:03] MED LIST: ALPRAZolam 0.25 MG TAB PO PRN; ALPRAZolam 0.5 MG TAB PO PRN; ASPIRIN 325 MG TAB PO STA; HEPARIN SODIUM,PORCINE (1 ML) 2,500 UNIT in SODIUM CHLORIDE 0.9% 250 ML IRRIGATION PRN; HEPARIN SODIUM,PORCINE 10,000 UNIT in SODIUM CHLORIDE 0.9% 1,000 ML IRRIGATION PRN; NITROGLYCERIN SL TABS 0.4 MG TAB SUBLINGUAL PRN; SODIUM CHLORIDE 0.9% 1,000 ML in EMPTY BAG 1 BAG IV ONE
[2023-11-01] MEDS: SODIUM CHLORIDE 0.9% 1,000 ML IV ONE (08:23)
[2023-11-01 09:05] LABS: Glucose,Whole Blood 136 mg/dL (70-110)
[2023-11-01] MEDS ORDERED: LIDOCAINE 1% INJ 10MG/ML (20 ML MDV) ONE (12:12)
[2023-11-01] MEDS ORDERED: fentaNYL (PF) 50 MCG/ML 2 ML AMP ONE (12:12)
[2023-11-01] MEDS ORDERED: VERAPAMIL 2.5 MG/ML 2 ML AMP ONE (12:12)
[2023-11-01] MEDS: MIDAZOLAM 2 MG/2 ML VIAL IVP ONE (12:29)
[2023-11-01] MEDS: fentaNYL (PF) 50 MCG/1 ML VIAL IVP ONE ×2 (12:30→12:36)
[2023-11-01] MEDS: LIDOCAINE 1% INJ 10MG/ML (20 ML MDV) SQ ONE (12:32)
[2023-11-01] MEDS: HEPARIN SODIUM 1,000 UN/ML (10ML VL) IVP ONE (12:36)
[2023-11-01] MEDS ORDERED: SODIUM CHLORIDE 0.9% 1,000 ML IV SCH (13:00)
[2023-11-01] MEDS ORDERED: RX INFO: IV CONTRAST WAS GIVEN 1 EACH MISC MISCELLANE PRN (13:00)
[2023-11-01] MEDS: IOPAMIDOL-370 100ML BTL INTRATHECA ONE (13:05)
--- NOTE | 2023-11-01 13:07 | P.PCN ---
Date of Procedure: 11/01/23 Operative Findings: CARDIAC CATHETERIZATION PERFORMING PHYSICIAN: Diego Beatty MD, RPVI PROCEDURE PERFORMED: 1. Selective right and left coronary angiogram 2. Left heart catheterization 3. IFR of the RCA 4. Ultrasound-guided access of the right radial artery INDICATION: Symptomatic 83-year-old female patient with known coronary artery disease and prior stenting of the left main and LAD and RCA who underwent also myocardial perfusion imaging stress test given to be abnormal. The symptoms have p rogressed recently COMPLICATION: None APPROACH: Right radial artery LEVEL OF SEDATION: Moderate with a sedation length of 20 minutes PROCEDURE DESCRIPTION: After obtaining an informed consent, the patient was brought to cardiac manager cath lab. Local anesthesia was performed using lidocaine subcutaneously. The right radial artery was cannulated using Seldinger technique, the guidewire passed easily, following that we advanced a 5-[place] sheath dilator assembly, the wire and dilator were removed and sheath was flushed. Following that, 2 mg of verapamil along with 5000 unit heparin were given. Selective right and left coronary angiogram using a 6-[place] JR4 and JL 3.5 catheters. Following that we did left heart catheterization using 6-[place] pigtail catheter. After that we decided to do an IFR of the RCA. After zeroing the Doppler wire and equalizing between the Doppler wire and guiding catheter which was a JR4 guiding catheter the RCA was engaged and subsequently wired. We did an IFR of the RCA and that came in to be ischemic at 0.82 distally and 0.83 in the midportion and 0.87 in the very proximal portion The procedure was completed there was no complication. SELECTIVE CORONARY ANGIOGRAM: The right coronary artery: Large-caliber vessel and a dominant vessel. The RCA is stented in the midportion with severe in-stent restenosis. There are also severe de jacky disease involving the distal right coronary artery Left main: Stented and the stent is patent The left circumflex: Medium caliber vessel nondominant vessel with mild disease only The left anterior descending artery: Large-caliber vessel with patent stents in the LAD. The LAD gives rise into the first and second diagonal branches and both have an ostial disease appears to be in the range of 50 to 60% HEMODYNAMICS: LVEDP was about 12 mmHg with very mild gradient across aortic valve CONCLUSION: 1. Severe de jacky disease involving the distal RCA and severe in-stent restenosis involving the mid RCA. The disease documented to be flow-limiting by Doppler wire 2. Patent stent in the LAD and left anterior descending artery POSTPROCEDURE MANAGEMENT: Consider medical treatment at this point and consider PCI of the RCA if the patient remains symptomatic
[2023-11-01 19:48] VITALS: RESP 16
[2023-11-01 20:35] VITALS: BP 118/53; PULSE 56
== END 2023-11-01 17:14 | disposition home or self-care (01) ==
LOC: CATHCVL 08:03
PROVIDERS: ATTEND Internal Medicine Interventional Cardiology
DX: T82.855A Stenosis of coronary artery stent, initial encounter (principal); I25.10 Atherosclerotic heart disease of native coronary artery without angina pectoris; I12.9 Hypertensive chronic kidney disease with stage 1 through stage 4 chronic kidney disease, or unspecified chronic kidney disease; E11.22 Type 2 diabetes mellitus with diabetic chronic kidney disease; N18.30 Chronic kidney disease, stage 3 unspecified; E78.5 Hyperlipidemia, unspecified; Z88.0 Allergy status to penicillin; Z79.84 Long term (current) use of oral hypoglycemic drugs; Z79.899 Other long term (current) drug therapy; Z79.82 Long term (current) use of aspirin; Y83.8 Other surgical procedures as the cause of abnormal reaction of the patient, or of later complication, without mention of misadventure at the time of the procedure
CPT/HCPCS: 93458; 93799; 76937; 99152; C1887; C1769 ×2; C1894; J2250; J2001; J1644; Q9967; J3010

== ENCOUNTER 2023-11-09 07:22 | Day surgery (SDC) | payer MEDICARE, OTHER ==
[~2023-11-09 07:22] MED LIST changes: -ASPIRIN 325 MG TAB PO STA; -SODIUM CHLORIDE 0.9% 1,000 ML in EMPTY BAG 1 BAG IV ONE
[2023-11-09] MEDS: SODIUM CHLORIDE 0.9% 1,000 ML in EMPTY BAG 1 BAG IV SCH ×2 (08:00→13:58)
[2023-11-09] MEDS: IV FLUID CONTINUATION 1,000 ML IV ONE ×2 (08:00→10:45)
[2023-11-09 08:14] LABS: Anisocytosis Slight; Basophils # (A) 0.1 k/uL (0-0.2); Basophils % (A) 1 %; Eosinophils # (A) 0.5 k/uL (0-0.7); Eosinophils % (A) 5 %; HCT 38.7 % (34.0-46.0); HGB 12.3 gm/dL (11.4-16.0); Lymphocytes # (A) 2.2 k/uL (1.0-4.8); Lymphocytes % (A) 25 %; MCH 28.5 pg (25.0-35.0); MCHC 31.8 g/dL (31.0-37.0); MCV 89.5 fL (80.0-100.0); Mean Platelet Volume 8.9; Monocytes # (A) 0.5 k/uL (0-1.0); Monocytes % (A) 6 %; Neutrophils # (A) 5.3 k/uL (1.3-7.7); Neutrophils % (A) 61 %; Platelet Count 202 k/uL (150-450); RBC 4.32 m/uL (3.80-5.40); RDW 16.1 % (11.5-15.5); WBC 8.7 k/uL (3.8-10.6)
[2023-11-09 08:24] LABS: African American GFR (CKD) 37 (>60 ml/min/1.73 sqM); Anion Gap 6 mmol/L; Blood Urea Nitrogen 28 mg/dL (7-17); Calcium 9.8 mg/dL (8.4-10.2); Carbon Dioxide 22 mmol/L (22-30); Chloride 110 mmol/L (98-107); Glucose 126 mg/dL (74-99); Non-African American GFR(CKD) 32 (>60 ml/min/1.73 sqM); Potassium 4.7 mmol/L (3.5-5.1); Sodium 138 mmol/L (137-145)
[2023-11-09] MEDS: ASPIRIN 325 MG TAB PO STA (08:30)
[2023-11-09] MEDS ORDERED: VERAPAMIL 2.5 MG/ML 2 ML AMP ONE (08:54)
[2023-11-09] MEDS ORDERED: HEPARIN SODIUM 1,000 UN/ML (10ML VL) ONE (09:10)
[2023-11-09] MEDS: MIDAZOLAM 2 MG/2 ML VIAL IVP ONE (09:52)
[2023-11-09] MEDS: LIDOCAINE 1% INJ 10MG/ML (20 ML MDV) SQ ONE (09:56)
[2023-11-09] MEDS: VERAPAMIL SYRINGE (5 MG/10 ML) INTRAARTER ONE (09:57)
[2023-11-09] MEDS: HEPARIN SODIUM 1,000 UN/ML (10ML VL) IVP ONE (09:57)
[2023-11-09] MEDS ORDERED: fentaNYL (PF) 50 MCG/ML 2 ML AMP ONE (10:01)
[2023-11-09] MEDS: fentaNYL (PF) 50 MCG/ML 2 ML AMP IVP ONE (10:02)
[2023-11-09] MEDS ORDERED: niCARdipine 25 MG/10 ML VIAL ONE (10:08)
[2023-11-09] MEDS: NITROGLYCERIN 1000MCG/10ML SYRINGE INTRACORON ONE (10:26)
[2023-11-09] MEDS: niCARdipine Syringe (1,000 mcg/10 mL) INTRACORON ONE (10:27)
[2023-11-09] MEDS: IOPAMIDOL-370 200ML BTL INJ ONE (10:37)
[2023-11-09] MEDS ORDERED: FUROSEMIDE 20 MG TAB PO PRN (10:41)
[2023-11-09] MEDS ORDERED: NITROGLYCERIN SL TABS 0.4 MG TAB SUBLINGUAL PRN ×2 (10:41→10:42)
[2023-11-09] MEDS ORDERED: ZOLPIDEM 5 MG TAB PO PRN (10:42)
[2023-11-09] MEDS ORDERED: RX INFO: IV CONTRAST WAS GIVEN 1 EACH MISC MISCELLANE PRN (10:42)
[2023-11-09] MEDS ORDERED: MAG HYDROX/AL HYDROX/SIMETH 30 ML CUP PO PRN (10:42)
[2023-11-09] MEDS ORDERED: ATROPINE SULFATE 0.1 MG/ML 10ML SYRINGE IV PRN (10:42)
--- NOTE | 2023-11-09 10:46 | P.PCN ---
Date of Procedure: 11/09/23 Operative Findings: PERCUTANEOUS CORONARY INTERVENTION Performing physician Diego Beatty M.D. Procedure Performed: 1. Successful stenting of the distal RCA using 3.5 x 38 mm Xience drug-eluting stent with an excellent angiographic results. 2. Successful balloon angioplasty of the mid and proximal RCA using 4 mm noncompliant balloon 3. Adjunctive use of lithotripsy balloon and intravascular imaging 4. Ultrasound-guided access of the right radial artery Indication: Symptomatic 83-year-old female patient who was diagnosed with occlusive CAD involving the RCA documented to be flow-limiting by Doppler wire Approach: Right radial artery Complications: None Level of Sedation: Moderate with a sedation length of 40 minutes Procedure Discussion: After obtaining informed consent the patient was brought to the cardiac [facility]le [facility]. The right radial artery was cannulated using micropuncture technique under ultrasound guidance the micropuncture wire passed easily then I placed a 6 [place] 11 cm sheath at the right radial artery which she was given 2 mg of verapamil intra-arterial and 5000's of heparin intravenous with continuous ACT monitoring. Subsequently I did engage the RCA using JR4 guiding catheter. I did wired using a run-through wire. Intravascular ultrasound was performed and showed a calcified RCA with in-stent restenosis appears to be biological and mechanical. I did decide to go with lithotripsy balloon. I did predilatation using 3.5 mm lithotripsy balloon. Subsequently I deployed distally 3.5 x 38 mm stent which was postdilated using 4 mm balloon and I did balloon angioplasty of the mid and proximal RCA using the same 4 mm noncompliant balloon. Final angiogram showed excellent angiographic results with SHARON-3 flow and the procedure was completed with no complication Postprocedure Management: 1. Dual antiplatelet therapy using aspirin and Brilinta for at least 6 months 2. Aggressive cholesterol control 3. Risk factors modification
[2023-11-09 14:49] VITALS: BMI 36.6
[2023-11-09] MEDS: allopurinoL 100 MG TAB PO SCH (19:46)
[2023-11-09] MEDS: ATORVASTATIN 20 MG TAB PO SCH (19:47)
[2023-11-09] MEDS: ASPIRIN 81 MG PO SCH (19:47)
[2023-11-09] MEDS: TICAGRELOR 90 MG TAB PO SCH (19:47)
[2023-11-10] MEDS: glipiZIDE 5 MG TAB PO SCH (06:42)
[2023-11-10 07:46] LABS: African American GFR (CKD) 40 (>60 ml/min/1.73 sqM); Non-African American GFR(CKD) 35 (>60 ml/min/1.73 sqM)
[2023-11-10 08:27] VITALS: BP 144/74; PULSE 66; RESP 16; TEMP 98.2
[2023-11-10] MEDS: ISOSORBIDE MONONITRATE ER 30 MG TAB.ER.24H PO SCH (08:32)
[2023-11-10] MEDS: LOSARTAN 50 MG TAB PO SCH (08:32)
[2023-11-10] MEDS: LORATADINE 10 MG TAB PO SCH (08:32)
[2023-11-10] MEDS: FAMOTIDINE 20 MG TAB PO SCH (08:32)
[2023-11-10] MEDS: atenoloL 50 MG TAB PO SCH (08:33)
[2023-11-10] MEDS ORDERED: TROSPIUM CHLORIDE 20 MG TABLET PO SCH (09:00)
--- NOTE | 2023-11-10 10:56 | P.DS ---
Providers Attending physician: Diego Beatty Consults: 11/09/23 10:42 Consult Physician Routine Consulting Provider: [facility] Consult Reason/Comments: Post Interventional patient Do you want consulting provider notified?: Already Contacted Primary care physician: Kasia Law [facility] Course: The patient is a pleasant 83-year-old female patient who underwent yesterday successful angioplasty and stenting of the right coronary artery with a good angiographic results She was seen and evaluated this morning which she is asymptomatic and hemodynamically stable. The rest of the physical examination is unremarkable. The patient to be discharged home on dual antiplatelet therapy along with high intensity statin and she will be seen in the office in a week Plan - Discharge Summary Discharge Rx Participant: No New Discharge Prescriptions: Continue Famotidine [Pepcid] 20 mg PO DAILY Cetirizine HCl [Zyrtec] 10 mg PO DAILY atenoloL [Tenormin] 50 mg PO DAILY Aspirin [Adult Low Dose Aspirin EC] 81 mg PO HS Furosemide [Lasix] 20 mg PO DAILY PRN PRN Reason: Edema glipiZIDE 5 mg PO DAILY Olmesartan Medoxomil [Benicar] 40 mg PO DAILY Nitroglycerin Sl Tabs [Nitrostat] 0.4 mg SUBLINGUAL Q5M PRN PRN Reason: Chest Pain Ticagrelor [Brilinta] 90 mg PO BID tab Simvastatin [Zocor] 40 mg PO HS allopurinoL [Zyloprim] 100 mg PO BID Fesoterodine Fumarate [Fesoterodine Fumarate ER] 20 mg PO DAILY Isosorbide Mononitrate ER [Imdur] 30 mg PO DAILY Discharge Medication List Cetirizine HCl [Zyrtec] 10 mg PO DAILY 01/16/18 [History] Famotidine [Pepcid] 20 mg PO DAILY 01/16/18 [History] atenoloL [Tenormin] 50 mg PO DAILY 01/16/18 [History] Aspirin [Adult Low Dose Aspirin EC] 81 mg PO HS 05/04/19 [History] Furosemide [Lasix] 20 mg PO DAILY PRN 05/05/19 [History] Fesoterodine Fumarate [Fesoterodine Fumarate ER] 20 mg PO DAILY 05/11/22 [History] Nitroglycerin Sl Tabs [Nitrostat] 0.4 mg SUBLINGUAL Q5M PRN 05/11/22 [History] Olmesartan Medoxomil [Benicar] 40 mg PO DAILY 05/11/22 [History] allopurinoL [Zyloprim] 100 mg PO BID 05/11/22 [History] glipiZIDE 5 mg PO DAILY 05/11/22 [History] Ticagrelor [Brilinta] 90 mg PO BID tab 05/16/22 [Rx] Isosorbide Mononitrate ER [Imdur] 30 mg PO DAILY 11/01/23 [History] Simvastatin [Zocor] 40 mg PO HS 11/01/23 [History] Follow up Appointment(s)/Referral(s): Diego Beatty MD [STAFF PHYSICIAN] - 1 Week (Office will call with appointment date and time) Patient Instructions/Handouts: Moderate Sedation (DC), Coronary Intravascular Stent Placement (DC), Coronary Angioplasty (DC) Activity/Diet/Wound Care/Special Instructions: No driving for two days Ok to shower tomorrow but no baths, pools, lakes, doing dishes by hand for five days. Signs of infection IE: fever, rash, drainage from puncture site, swelling go to ER/doctor for immediate evaluation. Avoid using right wrist/hand to bend, flex, lift greater than 5 lbs for five days. For Heavy Bleeding of puncture site apply firm direct pressure and return to ER. Do not attempt to drive self. low sodium/low fat diet medications as directed by Cardiologists CARDIAC REHAB
== END 2023-11-10 11:44 | disposition home or self-care (01) ==
LOC: CATHCVL 07:22 → 3SCARD 13:32 → CATHCVL 11-10 11:44
PROVIDERS: ATTEND Internal Medicine Interventional Cardiology
DX: T82.855A Stenosis of coronary artery stent, initial encounter (principal); I25.10 Atherosclerotic heart disease of native coronary artery without angina pectoris; Z79.02 Long term (current) use of antithrombotics/antiplatelets; Z79.82 Long term (current) use of aspirin; Z79.84 Long term (current) use of oral hypoglycemic drugs; Z79.899 Other long term (current) drug therapy
CPT/HCPCS: 92978; 92972; 76937; 80048; 82565; 85025; 99152; 99153 ×2; C9600; J2250; J2001; J3010; J1644; Q9967; J2305

== ENCOUNTER → 2024-01-10 | Outpatient (CLI) | payer MEDICARE, OTHER | END | disposition home or self-care (01) | LOC: LABPRL 11:00 | PROVIDERS: ATTEND Nurse Practitioner Family | DX: N18.4 Chronic kidney disease, stage 4 (severe) (principal) | CPT/HCPCS: 80048 ==